=== PATIENT | male | born 1950 | race Caucasian/White ===

== ENCOUNTER 2022-02-19 21:33 | Inpatient (IN) | payer MEDICARE, OTHER, SELFPAY ==
[2022-02-19] VITALS (17 sets, daily range): BP systolic 99–133; BP diastolic 65–102; PULSE 73–85; RESP 15–33; TEMP 36.6; O2SAT 93–96
--- NOTE | 2022-02-19 21:30 | DI.CT_ITS ---
Exam(s) CT HEAD CERVICAL SPINE WO EXAM: CT HEAD CERVICAL SPINE WO CLINICAL HISTORY: fall, intoxicated, pain. TECHNIQUE: Imaging Protocol: Axial computed tomography images with coronal and sagittal reformatted images were created and reviewed COMPARISON: No exams were available for comparison FINDINGS: BRAIN: There are no skull fractures nor fluid in the visualized paranasal sinuses. There is no evidence of intracranial hemorrhage, mass effect, or shift of midline structures. There are no extra-axial fluid collections. The ventricles are not enlarged or shifted and there is no blo od within the ventricular system nor within the basal cisterns. Mild periventricular hypodensity consistent with chronic small vessel disease. CERVICAL SPINE: There is no evidence of fracture nor listhesis. No significant prevertebral soft tissue swelling. Mild disc space narrowing at multiple levels noted. Also some facet arthropathy. There is no significant facet joint malalignment. No significant osseous lesions evident. IMPRESSION: No acute intracranial findings on this noninfused CT scan of the brain. No evidence of cervical spine fracture, malalignment, nor acute compromise of the cervical spinal can al. RADIATION DOSE DELIVERED: 1,196.67mGy.cm Total DLP DATA REPOSITORY: All CT scans at this facility are submitted to the National Radiology Data Registry (NRDR) Dose Index Registry (DIR) with the [employer] (ACR). RADIATION OPTIMIZATION: All CT scans at this facility use at least one of these dose optimization te chniques: automated exposure control; mA and/or kV adjustment per patient size (includes targeted exa ms where dose is matched to clinical indication); or iterative reconstruction.
--- NOTE | 2022-02-19 21:30 | DI.CT_ITS ---
Exam(s) CT THORACIC LUMBAR SPINE WO EXAM: CT THORACIC LUMBAR SPINE WO CLINICAL HISTORY: fall, intoxicated, pain. TECHNIQUE: Imaging Protocol: Axial computed tomography images with coronal and sagittal reformatted images were created and reviewed. CONTRAST MATERIAL: None Oral: yes / no COMPARISON: CT CT CHEST/ABD/PEL WO from 02/19/2022 FINDINGS: THORACIC SPINAL COLUMN: There is no evidence of compression fracture or listhesis. No acute compromi se of the spinal canal. LUMBOSACRAL SPINAL COLUMN: Mild compression fracture of superior endplate of L 5. There is also a fr acture through the anterosuperior aspect of the L4 vertebral body. There is also a nondisplaced frac ture of S1. All the disc spaces exhibit normal height. No evidence of acute compromise of the centr al canal. No foraminal stenosis. No facet malalignment. IMPRESSION: 1. No fractures in thoracic spinal column 2. Acute fractures of L4 and L5 vertebral bodies, without significant retropulsion. There is also no ndisplaced fracture of S1. There is no evidence compromise of the lumbosacral spinal canal. Also no significant foraminal stenosis. No facet malalignment. RADIATION DOSE DELIVERED: Total DLP DATA REPOSITORY: All CT scans at this facility are submitted to the National Radiology Data Registry (NRDR) Dose Index Registry (DIR) with the [employer] (A[employer]). RADIATION OPTIMIZATION: All CT scans at this facility use at least one of these dose optimization te chniques: automated exposure control; mA and/or kV adjustment per patient size (includes targeted exa ms where dose is matched to clinical indication); or iterative reconstruction.
--- NOTE | 2022-02-19 21:30 | RT.EKG_ITS ---
APPROVED REPORT Exam: Resting ECG Reason for Exam: ?syncope Patient Location: E HR:75 bpm ECG Measurements Heart Rate 75 AXIS WY 184 P 67 QRSd 97 QRS 75 QT 394 T 66 QTc 441 Conclusion Sinus rhythm...normal P axis, V-rate 60- 99 Probable anterolateral infarct, old...Q>35mS, abnrm ST-T, V2-V6,I,aVL
--- NOTE | 2022-02-19 21:30 | DI.CT_ITS ---
Exam(s) CT CHEST/ABD/PEL WO EXAM: CT CHEST/ABD/PEL WO CLINICAL HISTORY: fall, intoxicated, pain. TECHNIQUE: Imaging Protocol: Axial computed tomography images with coronal and sagittal reformatted images were created and reviewed CONTRAST MATERIAL: Intravenous: none Oral: None COMPARISON: CR CHEST 2 VIEWS PA,LAT from 04/10/2011 FINDINGS: CHEST: LUNGS: Right upper lobe scarring noted, as seen on prior chest x-rays dating back to at least 2010. Also some mild infiltrate in the left upper lobe and superior segment of the left lower lobe. Few sm all calcified granulomas are noted both lungs. There no pleural effusions. No pneumothorax. No obs tructing findings in the trachea and mainstem bronchi. MEDIASTINUM: No evidence of mediastinal hematoma. No hilar nor mediastinal adenopathy evident. No a xillary adenopathy. Visualized thyroid unremarkable. CARDIAC: Heart size is normal. There is no pericardial effusion.Ascending thoracic aorta is slightly prominent measuring 3.8 cm. Diameter of the aortic arch is 3.1 cm. Diameter of the descending thor acic aorta is also slightly prominent. OSSEOUS: There is fracture of the left clavicle midshaft level. There also multiple left-sided rib f ractures involving the 2nd, 3rd, 4th, 5th, 6, 7th, and 8th ribs with the 8th rib fracture being mildl y displaced. No pneumothorax. No right-sided rib fractures. No sternal fracture evident. No scapu lar fracture evident.No fractures of the thoracic vertebral bodies.. ABDOMEN: There is no ascites. No evidence of mesenteric nor bowel wall hematoma. LIVER: No obvious laceration evident on this noninfused study. No discrete focal hepatic lesions katia dent. GALLBLADDER/BILIARY: Cholelithiasis or hyperdense polyp on the posterior wall. No evidence of acute cholecystitis. CBD is not dilated. PANCREAS: No evidence of obvious pancreatic mass nor dilatation of the pancreatic duct. SPLEEN: Spleen size is normal. Splenic granulomas are noted. No splenic laceration nor perisplenic fluid. ADRENALS: There are no significant adrenal masses. KIDNEYS: There are cysts in both kidneys. The largest is in the anterior cortex of the left kidney a nd measures 3 x 3 cm. No solid renal masses nor calculi nor hydronephrosis. No renal lacerations.. ABDOMINAL AORTA: Heavily calcified and fusiform infrarenal abdominal aortic aneurysm with maximum ext ernal diameter of 2.6 cm. The of the common iliac arteries are heavily calcified but not enlarged. LYMPH NODES: There is no retroperitoneal nor para-aortic adenopathy. ABDOMINAL WALL/GI: No significant anterior abdominal hernia. There is a fat only containing left ing uinal hernia. No evidence of bowel obstruction. PELVIS: LYMPH NODES: There is no intrapelvic nor inguinal adenopathy. GI: No evidence of appendicitis.No evidence of sigmoid diverticulitis. URINARY BLADDER: Appears intact. No extravasation. No obvious calculi nor masses. REPRODUCTIVE: Prostate size normal. Seminal vesicles unremarkable. OSSEOUS: Fracture of the anterosuperior aspect of L4 vertebral body. Mild height loss of superior en dplate of L5. Possible subtle nondisplaced fracture of S1. No significant compromise of the spinal canal at these levels. IMPRESSION: 1. There are acute fractures of the left 2nd-8th ribs, with multiple rib fractures in 2 places, dilcia rning for development of flail chest. There is some displacement of the 8th rib fracture. There is some mild infiltrate in the left upper lobe and superior segment of the left lower lobe, possibly cherelle ment of contusion. Also mild infiltrate in the lingula. There is no pneumothorax. No significant p leural effusions. No mediastinal hematoma 2. No significant acute soft tissue trauma sequelae in the abdomen and pelvis, realized limitations o f a non infused a study. However, there are fractures of L4, L5, S1 vertebral bodies, nondisplaced. No acute compromise of the spinal canal. 3. Incidentally noted is a 2.6 cm fusiform infrarenal abdominal aortic aneurysm and benign cysts in b oth kidneys measuring up to 3 cm size. RADIATION DOSE DELIVERED: 1171.4 mGy.cm Total DLP DATA REPOSITORY: All CT scans at this facility are submitted to the National Radiology Data Registry (NRDR) Dose Index Registry (DIR) with the [employer] (ACR). RADIATION OPTIMIZATION: All CT scans at this facility use at least one of these dose optimization te chniques: automated exposure control; mA and/or kV adjustment per patient size (includes targeted exa ms where dose is matched to clinical indication); or iterative reconstruction.
--- NOTE | 2022-02-19 21:45 | DI.RAD_ITS ---
Exam(s) XR ELBOW LT COMPLETE EXAM: XR ELBOW LT COMPLETE CLINICAL HISTORY: fall, intoxicated, pain. TECHNIQUE: 2D digital imaging was performed. COMPARISON: No exams were available for comparison FINDINGS: 3 views No evidence of obvious fracture or joint effusion. No swelling of the olecranon bursa. Subtle irregularity on the medial aspect of the radial head is noted, possibly degenerative but if th ere is high clinical suspicion for fracture then an additional radial head Coyles view can be perform ed. IMPRESSION: DATA REPOSITORY: RADIATION DOSE DELIVERED:
--- NOTE | 2022-02-19 21:51 | ED.GENADUL_ITS ---
Discharge Plan Disposition Patient Disposition: [facility] INPATIENT Condition: Stable Discharge Details Clinical Impression: Fall, Blunt trauma of multiple sites of trunk, Blunt head trauma, Hyponatremia, Multiple rib fractures, Lumbar vertebral fracture Primary Care Provider: Tyrese Sprague ED Provider: Andrea Epps Home Meds and New Rx's Prescriptions: No Action hydrochlorothiazide 25 MG tablet 25 mg PO DAILY Qty: 30 0RF lisinopril 10 MG tablet 10 mg PO DAILY Qty: 30 0RF amlodipine 2.5 mg Tablet 0RF aspirin 81 mg Tablet,Chewable 81 mg PO DAILY 0RF Medical Decision Making 71 yo male with hx of HTN [facility] who comes in with [facility] after he was found on the ground by his roommate harriett and was on the ground for an unknown amount of time. EMS was called and when they arrived patient was awake and said he must have been sleep walking and admitted to drinking one beer, though the roommate disagreed and said he had been drinking most of the day. The ems crew noted a forehead laceration and a skin tear on the left wrist and elbow and brought him here. He arrives stable, caox4 answering questions with mild slurring of words. He has mild headache, left sided lateral chest pain over the 7-8 ribs in the anterior axillary line without crepitus. Has mild llq tenderness, no guarding or rebound. HE has no tenderness in the left wrist with a 3cm skin tear on posterior wrist, normal rom and sensation and pulses. He has full rom of the elbow with tendernes over the olecranon and a 2cm skin tear on the lateral elbow. He is moving all extremities equally with normal sensation, no deformities of the back noted. Given he is intoxicated with multiple signs of trauma can't exclude traumatic injuries based on exam, will obtain ct head/c spine, chest/abd/pelvis as well as t and l spine recons, given he was in his house and not near anything he could have climbed on doubt aortic injury and will defer contrast in the study. Will also obtain etoh level, cbc, cmp and cpk. Though it is likely this was alcohol induced episoe of passing out will obtain ecg and troponin to evaluate for cardiac etiology. He has no tearing back pain to suggest dissection and no hypoxia or evidence of dvt so doubt pe. THe laceration on the mid forehead is 2cm and superficial and was closed after irrigation with dermabond. Pt's imaging pending, vitals stable, labs remarkable for Na of 119 which could be from beer protonomia vs being on hydrochlorothiazide. Has had 1L of saline, will hold on additional fluid to avoid overcorrection of the sodium. Dr Epps's Documentation The case was signed out to me by my colleague Dr. Homer Pozo. Please refer to his HPI, Assessment and plan. At time of signout there was a plan for admission for hyponatremia, but we are pending radiographic work-up. CT scan results have returned, the patient demonstrates multiple rib fractures on the left of the second through eighth ribs, with multiple rib fractures in 2 places, which is concerning for the development of potential flail chest. There is some pulmonary contusion, but no evidence of pneumothorax. He also does have a mildly displaced fracture of the midshaft of the left clavicle. Elbow x-rays unremarkable. CT scan of the spine demonstrates some small endplate fractures, but no other significant abnormality. Patient is able to move legs well, as well as upper extremities. I did go and reassess the patient myself. He demonstrates no evidence of subcutaneous emphysema on exam. Patient does not want any pain medications at this time. He states that he does have pain but it is only if he takes a deep breath right now. He states that he feels comfortable currently. I did contact surgery, discussed the case with Dr. Singleton. She states that she would feel comfortable with the patient being here with surgery on consult for the trauma components. As the patient remained stable at this time, I do feel that that would be reasonable as he shows no evidence of acute intercranial abnormality on imaging, pneumothorax, hemothorax, or other current life-threatening traumatic component. We will contact the hospitalist for medical admission with surgical consultation. 12:38 AM Discussed the case with Dr. Phillips, he agrees with the assessment and plan. I have extensively reviewed the treatment plan with the patient. I have addressed all patient concerns at this time. I have also discussed the plan with the admitting physician and they agree with the current assessment and plan and have agreed to assume responsibility for the patient. All parties demonstrate verbal understanding and agreement with our assessment and plan at this time. The documentation in this chart was dictated using [employer] dictation software. Please excuse any dictation errors. FINDINGS: Bones/joints: The bones are demineralized, which limits sensitivity for detection of acute nondisplaced fractures. No fractures are identified with certainty. Alignment is anatomic. No joint effusion is seen. Soft tissues: Periarticular soft tissues are unremarkable. IMPRESSION: No fracture or malalignment in the left elbow. Thank you for allowing us to participate in the care of your patient. Dictated and Authenticated by: Temi Arthur MD 02/20/2022 12:07 AM Eastern Time ([place] & [place]) IMPRESSION: 1. Acute fractures of the left 2nd-8th ribs as described above, with multiple ribs fractured in 2 places. This is concerning for the development of flail chest. 2. Trace left pleural effusion with suspected small pulmonary contusions in the left upper and left lower lobes. 3. No pneumothorax. 4. Mildly displaced fracture of the midshaft of the left clavicle. 5. Additional incidental/nontraumatic findings are discussed in the body of the report. IMPRESSION: 1. No acute posttraumatic abnormality in the abdomen or pelvis. No definitive ev idence of visceral injury. No acute fractures. Study limited by noncontrast technique and degraded by artifact. 2. Incidental/nontraumatic findings are discussed in the body of the report. Thank you for allowing us to participate in the care of your patient. Dictated and Authenticated by: Temi Arthur MD 02/19/2022 11:48 PM Eastern Time ([place] & [place]) FINDINGS: Vertebrae: No acute fracture in the thoracic spine. No spondylolisthesis. Thoracic kyphosis is maintained. Bridging anterior endplate osteophytes throughout the thoracic spine are compatible with diffuse idiopathic skeletal hyperostosis. Discs/Spinal canal/Neural foramina: No moderate to large disc herniation. No moderate or severe central canal stenosis, noting that characterization of intraspinal soft tissue structures is limited by non-myelographic CT technique. No high-grade neural foraminal stenosis. Soft tissues: No paraspinal hematoma. Other findings: Please refer to the concurrently performed chest CT, reported separately, for description of left rib and clavicular fractures and other intrathoracic findings. IMPRESSION: No acute fracture or traumatic subluxation in the thoracic spine. FINDINGS: Vertebrae: There is an acute fracture of the right aspect of the L4 superior endplate which extends in an oblique fashion through its large anterior/superior endplate osteophyte (see sagittal images 46- 56). There is a subtle suspected nondisplaced fracture of the L4 inferior endplate. There is no significant loss of vertebral body height or osseous retropulsion at this level. There is a mild acute appearing superior endplate compression deformity at L5 and a subtle suspected nondisplaced inferior endplate compression deformity at L5, with mild loss of vertebral body height though no significant osseous retropulsion. There is a questionable subtle superior endplate compression deformity at S1. Up there lying osseous demineralization and advanced degenerative changes limit sensitivity for detection of acute nondisplaced fractures. There is no spondylolisthesis. Lumbar lordosis is maintained. Discs/Spinal canal/Neural foramina: No moderate or high-grade central canal stenosis. No moderate or large disc herniation, noting that characterization of intraspinal structures is limited by non myelographic CT technique. No high-grade neural foraminal stenosis. Soft tissues: No acute posttraumatic abnormality. IMPRESSION: 1. Acute compression fractures at L4 and L5 as described above, without significant osseous retropulsion. 2. Questionable nondisplaced superior endplate compression fracture at S1. Underlying osseous demineralization limits evaluation. This could be further assessed with MRI. Thank you for allowing us to participate in the care of your patient. Dictated and Authenticated by: Temi Arthur MD 02/20/2022 12:00 AM Eastern Time ([place] & [place] FINDINGS: Brain: There are mild periventricular and subcortical lucencies consistent with chronic microvascular ischemic changes. The still-white differentiation is maintained. No hemorrhage. No edema. Cerebral ventricles: No ventriculomegaly. Paranasal sinuses: Visualized sinuses are unremarkable. No fluid levels. Mastoid air cells: Visualized mastoid air cells are well aerated. Bones/joints: Unremarkable. No acute fracture. Soft tissues: Unremarkable. IMPRESSION: 1. No acute intracranial abnormality. 2. Chronic microvascular ischemic changes. FINDINGS: Bones/joints: No acute fracture. Normal alignment. Discs/Spinal canal/Neural foramina: Multilevel degenerative disc disease. There is multilevel uncovertebral and facet hypertrophy with neural foramina narrowing. Lungs: Lung apices are normal. Soft tissues: Unremarkable. IMPRESSION: No acute abnormality. Thank you for allowing us to participate in the care of your patient. Dictated and Authenticated by: Neptali Swan DO 02/19/2022 11:12 PM Eastern Time ([place] & [place]) Differential Diagnosis Differential Diagnosis: tbi, rib fracture, intoxication Lab Data Lab results reviewed: Yes I reviewed the patient's lab results. ECG Data Attestation: I personally reviewed and interpreted this ECG (s) as follows: Prior ECG tracings: not available for review Interpretation: Sinus rhythm, rate of 75, pr 184, no acute st t wave ischemic findings HPI General Mode of arrival: EMS . Date/Time Provider Initiated Documentation: 02/19/22 21:33 . Limitations to Documentation: no limitations . Information obtained by: patient and EMS . History of Present Illness 71 year old M presents to the emergency department with the chief complaint of fell, found on ground by roommate, Patient started experiencing this unknown and it has been constant. improves with No relieving factors improve symptom(s), No exacerbating factors reported . Patient did receive the following treatments prior to arrival, none Related Data Home Medications Medication Instructions Recorded Confirmed hydrochlorothiazide 25 mg tablet 25 mg PO DAILY #30 tablet 06/28/14 lisinopril 10 mg tablet 10 mg PO DAILY #30 tablet 06/28/14 02/19/22 amlodipine 2.5 mg tablet mg 02/19/22 aspirin 81 mg chewable tablet 81 mg PO DAILY 02/19/22 02/19/22 Previous Rx's Medication Instructions Recorded hydrochlorothiazide 25 mg tablet 25 mg PO DAILY #30 tablet 06/28/14 lisinopril 10 mg tablet 10 mg PO DAILY #30 tablet 06/28/14 Allergies Allergy/AdvReac Type Severity Reaction Status Date / Time No Known Allergies Allergy Unverified 02/19/22 21:51 General Stated Complaint: Trauma CONCETTA: 3 Review of Systems All systems reviewed & are unremarkable except as noted in HPI and below Constitutional Constitutional: Denies chills, Denies fever(s) and Denies weakness Cardiovascular Cardiovascular: Denies dyspnea Respiratory Respiratory: Denies cough and Denies dyspnea Gastrointestinal Gastrointestinal: Denies abdominal pain, Denies nausea and Denies vomiting Genitourinary Genitourinary: Denies dysuria Musculoskeletal Musculoskeletal: Denies joint swelling Integumentary/Breasts Skin/Breast: Denies rash Neurologic Neurologic: Denies weakness PFSH All Active Problems (Updated 02/20/22 @ 00:40 by Andrea Epps DO) Fall (Acute) Blunt trauma of multiple sites of trunk (Acute) Blunt head trauma (Acute) Hyponatremia (Acute) Multiple rib fractures (Acute) Lumbar vertebral fracture (Acute) Social History Smoking/Tobacco Use Status: Current every day Smoking risk assessment performed?: Yes Alcohol Intake: current Alcohol Intake frequency: 0-2 drinks per day Alcohol type: beer Drug use: Never Details: Patient reports drinking a 25oz beer tonight. Exam Const General: no acute distress Orientation: alert HENMT Head: no palpable skull fracture Ears: external ears normal General nose exam: external nose normal Mouth: moist mucous membranes Eyes General: appearance normal, both eyes and all related structures Neck Neck: normal visual inspection Resp Effort & Inspection: normal respiratory effort and able to speak in complete sentences Cardio Rate: regular rate GI Palpation: soft, not firm, no guarding and tender Skin General skin exam: no rashes or lesions noted Neuro General: patient alert and patient oriented x3 Extrem General: capillary refill normal Psych Mental Status: mental status grossly normal Course Vital Signs Vital signs: Vital Signs Temperature 36.6 C 02/19/22 21:32 Pulse 73 02/19/22 21:32 Respiratory Rate 22 02/19/22 21:32 Blood Pressure 99/65 L 02/19/22 21:32 Pulse Oximetry 95 02/19/22 21:32 Temperature 36.6 C 02/19/22 21:32 Temperature Source Skin 02/19/22 21:32 Pulse 73 02/19/22 21:32 Respiratory Rate 22 02/19/22 21:32 Respiratory Effort 02/19/22 21:39 Respiratory Depth Normal 02/19/22 21:39 Respiratory Pattern Normal 02/19/22 21:39 Blood Pressure 99/65 L 02/19/22 21:32 Blood Pressure Position Supine 02/19/22 21:32 Pulse Oximetry 95 02/19/22 21:32 Oxygen Delivery Method Room Air 02/19/22 21:32 Oxygen Flow Rate 0 02/19/22 21:32 Pain Level 5 02/19/22 21:32 Sign Out Sign Out Data: Sign Out Comment: found on the ground at his house by his roommate/landlord, unknown how long down and admitted to 1 beer though landlord said he drank more throughout the day. AWake on ems arrival and on arrival caox4 though slurring words. Lac on forehead closed with dermabond, no focal neuro findings. [place] scan pending and left elbow xray. Na of 119 likely from beer protonomia vs being on HCTZ. [facility] if unable to take him would likely need to be admitted here. 1L saline given on arrival prior to labs being done. Last updated by Homer Pozo MD at 02/19/22 22:24 PAWSS Have you Been Recently Intoxicated or Drunk Within the Last 30 days?: Yes Have you Ever Experienced Previous Episodes of Alcohol Withdrawal?: No Have you ever Experienced Withdrawal Seizures?: No Have you ever Experienced Delirium Tremens(DT)s?: No Have you ever undergone Alcohol Rehabilitation Treatment (i.e, inpt ot outpatient treatment programs)?: No Have you ever Experienced Blackouts?: No Have you ever Combined Alcohol with other Downers within the last 90 days?: No Have you ever Combined Alcohol with any other Substance of Abuse during the last 90 days?: No Positive Blood Alcohol level on Presentation? [PCS.BAL]: No Evidence of Increased Autonomic Activity (i.e. HR>120, tremor, sweating, agitati on, nausea)?: No Result: 1
[2022-02-19 21:53] LABS: Abs Immature Grans 0.13 10^3/uL (0.0-0.06); Absolute Basophil Count 0.04 10^3/uL (0.0-0.2); Absolute Eosinophil Count 0.22 10^3/uL (0.0-0.7); Absolute Monocyte Count 0.72 10^3/uL (0.1-0.8); Absolute Neutrophil Count 5.93 10^3/uL (1.2-6.7); Basophils % 0.4; Eosinophils % 2.3; HCT 32.4 % (40.0-50.0); HGB 11.7 g/dL (13.5-17.5); Immature Grans % 1.4; Lymphocytes % 26.2; MCH 33.9 pg (27.0-33.0); MCHC 36.1 % (32.0-36.0); MCV 93.9 fL (80-95); MPV 8.6 fL (8.0-11.0); Monocytes % 7.5; Neutrophils % 62.2; Platelet Count 183 10^3/uL (130-400); RBC 3.45 10^6/uL (4.36-5.78); RDW 12.1 % (11.8-14.1); RDW-SD 41.7 fL; WBC 9.54 10^3/uL (4.4-10.8)
[2022-02-19] MEDS: Normal Saline 1,000 ML 1000 ML IV (22:05)
[2022-02-19 22:13] LABS: ALT 29 U/L (16-63); AST 31 U/L (15-37); Alkaline Phosphatase 120 U/L (46-116); Anion Gap 9.1 mmol/L (3-11); BUN 17 mg/dL (7-18); Bilirubin, Total 0.3 mg/dL (0.2-1.0); CO2 21.9 mmol/L (21.0-32.0); CREATININE 0.9 mg/dL (0.70-1.30); Calcium 7.8 mg/dL (8.5-10.1); Chloride 88 mmol/L (98-107); ETHANOL BLOOD 155.8 mg/dL (<10); Glucose 89 mg/dL (74-106); Total Protein 6.7 g/dL (6.4-8.2); Troponin I < 50 ng/L (<or=60)
[2022-02-19 22:14] LABS: Sodium 119 mmol/L (136-145)
[2022-02-19 22:17] LABS: PTT Activated 24.1 sec (21.0-27.5); Prothrombin Time 9.6 sec (9.3-11.0)
[2022-02-19 22:21] LABS: TSH (W/Ref FT4) 3.73 uIU/mL (0.36-3.74)
[2022-02-19 22:22] LABS: Creatine Kinase 195 U/L (39-308)
[2022-02-19 22:56] LABS: Source Nasal/Nares
--- NOTE | 2022-02-19 23:14 | DI.VRAD_ITS ---
PROCEDURE INFORMATION: Exam: CT Head Without Contrast Exam date and time: 02/19/2022 10:10 PM Age: 71 years old Clinical indication: Other: Fall, intoxicated, pain, TECHNIQUE: Imaging protocol: Computed tomography of the head without contrast. Radiation optimization: All CT scans at this facility use at least one of these dose optimization techniques: automated exposure control; mA and/or kV adjustment per patient size (includes targeted exams where dose is matched to clinical indication); or iterative reconstruction. COMPARISON: No relevant prior studies available. FINDINGS: Brain: There are mild periventricular and subcortical lucencies consistent with chronic microvascular ischemic changes. The still-white differentiation is maintained. No hemorrhage. No edema. Cerebral ventricles: No ventriculomegaly. Paranasal sinuses: Visualized sinuses are unremarkable. No fluid levels. Mastoid air cells: Visualized mastoid air cells are well aerated. Bones/joints: Unremarkable. No acute fracture. Soft tissues: Unremarkable. IMPRESSION: 1. No acute intracranial abnormality. 2. Chronic microvascular ischemic changes. PROCEDURE INFORMATION: Exam: CT Cervical Spine Without Contrast Exam date and time: 02/19/2022 10:10 PM Age: 71 years old Clinical indication: Other: Fall, intoxicated, pain, TECHNIQUE: Imaging protocol: Computed tomography images of the cervical spine without contrast. Radiation optimization: All CT scans at this facility use at least one of these dose optimization techniques: automated exposure control; mA and/or kV adjustment per patient size (includes targeted exams where dose is matched to clinical indication); or iterative reconstruction. COMPARISON: No relevant prior studies available. FINDINGS: Bones/joints: No acute fracture. Normal alignment. Discs/Spinal canal/Neural foramina: Multilevel degenerative disc disease. There is multilevel uncovertebral and facet hypertrophy with neural foramina narrowing. Lungs: Lung apices are normal. Soft tissues: Unremarkable. IMPRESSION: No acute abnormality. Dictated and Authenticated by: Neptali Swan MD. Ordering:PRABHJOT Coronel MD
[2022-02-19 23:31] LABS: Bilirubin Negative (Negative); Blood Moderate (Negative); Clarity Clear (Clear); Glucose Negative (Negative); Ketones Negative (Negative); Leukocyte Esterase Negative (Negative); Nitrite Negative (Negative); Specific Gravity 1.025 (1.005-1.025); Urobilinogen 0.2 EU/dL (Up TO 0.2); pH 5.5 (5-8)
[2022-02-19 23:33] LABS: COVID-19 PCR Negative (Negative)
[2022-02-19 23:41] LABS: Bacteria Few HPF (Negative); C & S Indicated? No; Casts 3-5 Hyaline LPF (Negative); Crystals Few Amorphous HPF (Negative); Epithelial Cells Negative HPF (Negative); Mucus Trace (Negative); WBC 0-2 HPF (0-5)
[2022-02-19 23:42] LABS: *AMPHETAMINES SCREEN URINE Negative (Negative); *BARBITURATES SCREEN URINE Negative (Negative); *BENZODIAZEPINES SCREEN URINE Negative (Negative); Cannabinoids THC Negative (Negative); Cocaine Screen,Urine Negative (Negative); METHADONE URINE SCREEN Negative (Negative); OPIATES URINE SCREEN Negative (Negative)
[2022-02-19 23:43] LABS: Tricyclic Antidepressants Negative (Negative)
--- NOTE | 2022-02-19 23:49 | DI.VRAD_ITS ---
Addendum created by Temi Arthur MD on 02/20/2022 12:02:31 AM EDT: Please refer to the concurrently performed CT of the lumbar spine, reported separately, for discussion of lumbar vertebral fractures which are seen to better advantage on those images. Initial report created on 02/19/2022 11:48:23 PM EDT: PROCEDURE INFORMATION: Exam: CT Chest Without Contrast; Diagnostic Exam date and time: 02/19/2022 10:26 PM Age: 71 years old Clinical indication: Other: Fall, intoxicated, pain TECHNIQUE: Imaging protocol: Diagnostic computed tomography of the chest without contrast. Radiation optimization: All CT scans at this facility use at least one of these dose optimization techniques: automated exposure control; mA and/or kV adjustment per patient size (includes targeted exams where dose is matched to clinical indication); or iterative reconstruction. COMPARISON: No relevant prior studies for comparison. FINDINGS: Limitations: Image quality is degraded by artifact from the patient's arms, which were not elevated during imaging. Respiratory motion artifact also degrades image quality. Lack of intravenous contrast limits evaluation of the solid viscera and vasculature. Lungs: There is moderately advanced centrilobular emphysema with biapical pleuroparenchymal scarring, with associated mild traction bronchiectasis in the right upper lobe. There are small dependent patchy alveolar opacities posteriorly in the left upper lobe and left lower lobe which are nonspecific, though in the setting of left-sided rib fractures raise suspicion for pulmonary contusions. Atelectasis could also contribute to this appearance. There is mild linear subsegmental atelectasis versus scarring in the lingula. There are numerous tiny calcified granulomas throughout both lungs. Pleural spaces: Trace left pleural effusion. No pneumothorax. Heart: Heart size is normal. Aortic and mitral annular calcifications and mild coronary artery calcifications are noted. No pericardial effusion. Mediastinal space: No mediastinal hematoma. Lymph nodes: No pathologically enlarged mediastinal or axillary lymph nodes. While no bulky hilar lymphadenopathy is suspected, characterization of hilar structures is limited without intravenous contrast. Pulmonary arteries: Normal caliber. Aorta: Normal caliber, with severe atherosclerotic mural calcification. Bones/joints: There is a mildly displaced oblique fracture of the midshaft of the left clavicle. There are multiple acute left rib fractures, with multiple ribs fractured in 2 places, which is concerning for the development of flail chest. In the left 2nd rib there is a nondisplaced fracture anteriorly and a comminuted nondisplaced fracture posteriorly. In the 3rd rib there is a mildly comminuted nondisplaced fracture anterolaterally and a mildly displaced fracture posteriorly. In the 4th rib there are nondisplaced fractures laterally and posteriorly. In the 5th rib there are nondisplaced fractures laterally and posteriorly. In the 6th and 7th ribs there are comminuted fractures posteriorly and questionable nondisplaced fractures laterally, not well assessed due to motion artifact. In the 8th rib, there is a nondisplaced fracture laterally and a comminuted fracture posteriorly which is displaced by nearly a full shaft's width. Other subtle nondisplaced rib fractures are difficult to exclude in the setting of motion artifact. Thoracic vertebral bodies maintain normal height and alignment. Soft tissues: Unremarkable. IMPRESSION: 1. Acute fractures of the left 2nd-8th ribs as described above, with multiple ribs fractured in 2 places. This is concerning for the development of flail chest. 2. Trace left pleural effusion with suspected small pulmonary contusions in the left upper and left lower lobes. 3. No pneumothorax. 4. Mildly displaced fracture of the midshaft of the left clavicle. 5. Additional incidental/nontraumatic findings are discussed in the body of the report. PROCEDURE INFORMATION: Exam: CT Abdomen And Pelvis Without Contrast Exam date and time: 02/19/2022 10:26 PM Age: 71 years old Clinical indication: Other: Fall, intoxicated, pain TECHNIQUE: Imaging protocol: Computed tomography of the abdomen and pelvis without contrast. Radiation optimization: All CT scans at this facility use at least one of these dose optimization techniques: automated exposure control; mA and/or kV adjustment per patient size (includes targeted exams where dose is matched to clinical indication); or iterative reconstruction. COMPARISON: No relevant prior studies for comparison. FINDINGS: Limitations: Lack of intravenous contrast limits evaluation of the solid viscera and vasculature. Motion artifact and artifact from the patient's arms also degrades image quality. Lungs: See above. Liver: No acute abnormality, within the limits of artifact and noncontrast technique. Gallbladder and bile ducts: No intrahepatic or extrahepatic biliary ductal dilatation. Cholelithiasis is noted. Pancreas: Unremarkable. Spleen: The spleen is normal in size and contains multiple small calcified granulomas. Otherwise unremarkable, within the limits of artifact and noncontrast technique. Adrenal glands: Unremarkable. Kidneys and ureters: No hydronephrosis or hydroureter. Simple-appearing cortical cysts in both kidneys. Stomach and bowel: Unremarkable. Small and large bowel are normal in caliber. Appendix: No findings to suggest appendicitis. Intraperitoneal space: Unremarkable. No ascites, fluid collection, or pneumoperitoneum. Retroperitoneal space: Unremarkable. No retroperitoneal collection or mass. Arteries: Severe diffuse atherosclerotic vascular calcifications with slight ectasia of the infrarenal abdominal aorta. Lymph nodes: No pathologically enlarged lymph nodes. Urinary bladder: Unremarkable. Reproductive: Mildly enlarged prostate gland. Bones/joints: No acute fractures. Mild chronic-appearing loss of height of the L5 vertebral body. Degenerative changes. Soft tissues: Small fat-containing left inguinal and umbilical hernias. Other findings: None. IMPRESSION: 1. No acute posttraumatic abnormality in the abdomen or pelvis. No definitive evidence of visceral injury. No acute fractures. Study limited by noncontrast technique and degraded by artifact. 2. Incidental/nontraumatic findings are discussed in the body of the report. Dictated and Authenticated by: Temi Arthur MD. Ordering:PRABHJOT Coronel MD
[2022-02-20] VITALS (132 sets, daily range): BP systolic 90–173; BP diastolic 60–107; PULSE 69–97; RESP 5–31; TEMP 36.6–38.1; O2SAT 84–97
--- NOTE | 2022-02-20 00:01 | DI.VRAD_ITS ---
PROCEDURE INFORMATION: Exam: CT Thoracic Spine Without Contrast Exam date and time: 02/19/2022 10:26 PM Age: 71 years old Clinical indication: Other: Fall, intoxicated, pain TECHNIQUE: Imaging protocol: Computed tomography images of the thoracic spine without contrast. Radiation optimization: All CT scans at this facility use at least one of these dose optimization techniques: automated exposure control; mA and/or kV adjustment per patient size (includes targeted exams where dose is matched to clinical indication); or iterative reconstruction. COMPARISON: 1. CT HEAD CERVICAL SPINE WO 02/19/2022 10:[address] CHEST/ABD/PEL WO 02/19/2022 10:26 PM FINDINGS: Vertebrae: No acute fracture in the thoracic spine. No spondylolisthesis. Thoracic kyphosis is maintained. Bridging anterior endplate osteophytes throughout the thoracic spine are compatible with diffuse idiopathic skeletal hyperostosis. Discs/Spinal canal/Neural foramina: No moderate to large disc herniation. No moderate or severe central canal stenosis, noting that characterization of intraspinal soft tissue structures is limited by non-myelographic CT technique. No high-grade neural foraminal stenosis. Soft tissues: No paraspinal hematoma. Other findings: Please refer to the concurrently performed chest CT, reported separately, for description of left rib and clavicular fractures and other intrathoracic findings. IMPRESSION: No acute fracture or traumatic subluxation in the thoracic spine. PROCEDURE INFORMATION: Exam: CT Lumbar Spine Without Contrast Exam date and time: 02/19/2022 10:26 PM Age: 71 years old Clinical indication: Other: Fall, intoxicated, pain TECHNIQUE: Imaging protocol: Computed tomography images of the lumbar spine without contrast. Radiation optimization: All CT scans at this facility use at least one of these dose optimization techniques: automated exposure control; mA and/or kV adjustment per patient size (includes targeted exams where dose is matched to clinical indication); or iterative reconstruction. COMPARISON: 1. CT CHEST/ABD/PEL WO 02/19/2022 10:[address] HEAD CERVICAL SPINE WO 02/19/2022 10:10 PM FINDINGS: Vertebrae: There is an acute fracture of the right aspect of the L4 superior endplate which extends in an oblique fashion through its large anterior/superior endplate osteophyte (see sagittal images 46-56). There is a subtle suspected nondisplaced fracture of the L4 inferior endplate. There is no significant loss of vertebral body height or osseous retropulsion at this level. There is a mild acute appearing superior endplate compression deformity at L5 and a subtle suspected nondisplaced inferior endplate compression deformity at L5, with mild loss of vertebral body height though no significant osseous retropulsion. There is a questionable subtle superior endplate compression deformity at S1. Up there lying osseous demineralization and advanced degenerative changes limit sensitivity for detection of acute nondisplaced fractures. There is no spondylolisthesis. Lumbar lordosis is maintained. Discs/Spinal canal/Neural foramina: No moderate or high-grade central canal stenosis. No moderate or large disc herniation, noting that characterization of intraspinal structures is limited by non myelographic CT technique. No high-grade neural foraminal stenosis. Soft tissues: No acute posttraumatic abnormality. IMPRESSION: 1. Acute compression fractures at L4 and L5 as described above, without significant osseous retropulsion. 2. Questionable nondisplaced superior endplate compression fracture at S1. Underlying osseous demineralization limits evaluation. This could be further assessed with MRI. Dictated and Authenticated by: Temi Arthur MD. Ordering:PRABHJOT Coronel MD
--- NOTE | 2022-02-20 00:08 | DI.VRAD_ITS ---
PROCEDURE INFORMATION: Exam: XR Left Elbow Exam date and time: 02/19/2022 10:38 PM Age: 71 years old Clinical indication: Other: Fall, intoxicated pain TECHNIQUE: Imaging protocol: XR Left elbow. Views: 3 or more views. COMPARISON: No relevant prior studies available. FINDINGS: Bones/joints: The bones are demineralized, which limits sensitivity for detection of acute nondisplaced fractures. No fractures are identified with certainty. Alignment is anatomic. No joint effusion is seen. Soft tissues: Periarticular soft tissues are unremarkable. IMPRESSION: No fracture or malalignment in the left elbow. Dictated and Authenticated by: Temi Arthur MD. Ordering:PRABHJOT Coronel MD
--- NOTE | 2022-02-20 00:59 | W.PM.HP.N ---
Date of service: 02/20/22 Time of Service: 01:00 Assessment and Plan Assessment and plan (1) Fall: Status: Acute Assessment and plan: Found down, unclear if mechanical fall or syncopal event, with multitrauma, including ribs, clavicle and spine. No mechanical respiratory compromise evident (viz, flail chest). 1. Fall vs syncope: trend trop, telemetry 2. EtOH: CIWA, banana bag 3. Hyponatremia, diuretic vs EtOH: trend, NS, hold diuretic 4. Multiple fractures: monitor respiratory function clinically, rib blocks, prn analgesics (again, declines) 5. Anemia: check baseline NE labs (have requested), trend, initial w/u with retics and iron studies and stool guiacs 6. Microscopic hematuria, ? renal contusion: follow, further urological w/u if persists History of Present Illness History of Present Illness Chief Complaint: found down Narrative: 71 male with h/o HTN, [facility], last seen here [facility] -- found by roommate down, unknown period. Stated he had one beer though roommate states he was drinking all day. Signs of multitrauma evident and patient brought to ER. In ER findings of note for forehead laceration, and multiple areas of ecchymosis. Labs of note for Hct 32, Na 119, EtOH 155, U/A 10-20 RBC; and imaging of note for left clavicular fracture, fractures of left ribs 2-8, some in multiple locations, L4 and L5 endplate fractures, negative left elbow. CT chest suggests possible small pulmonary contusion but no other acute pathology, and CT abdomen no acute process. Surgery was consulted and will see patient in AM for rib blocks. EKG unremarkable and trop negative. I was asked to evaluate for admission. Patient reports left sided rib pain with deep inspiration (and declines pain meds). Denies SOB. States (again) that he drinks only one beer per day, and denies issues with withdrawal Review of Systems Constitutional Comments: per HPI PFSH All Active Problems Fall (Acute) Blunt trauma of multiple sites of trunk (Acute) Blunt head trauma (Acute) Hyponatremia (Acute) Multiple rib fractures (Acute) Lumbar vertebral fracture (Acute) Social History Smoking/Tobacco Use Status: Current every day Smoking risk assessment performed?: Yes Alcohol Intake: current Alcohol Intake frequency: 0-2 drinks per day Alcohol type: beer Drug use: Never Details: Patient reports drinking a 25oz beer tonight. Meds Allergies and Home Medications Allergies Allergy/AdvReac Type Severity Reaction Status Date / Time No Known Allergies Allergy Unverified 02/19/22 21:51 Home Medications Medication Instructions Recorded Confirmed Type hydrochlorothiazide 25 mg tablet 25 mg PO DAILY #30 tablet 06/28/14 Rx lisinopril 10 mg tablet 10 mg PO DAILY #30 tablet 06/28/14 02/19/22 Rx amlodipine 2.5 mg tablet mg 02/19/22 History aspirin 81 mg chewable tablet 81 mg PO DAILY 02/19/22 02/19/22 History Exam Narrative Exam Narrative: 124/62 (during exam, last recorded ), 73, 36.6, 18, 95% RA. HEENT 4 cm forehead lac with dermabond; neck supple; lungs limited inspiration coarse wheeze; heart RRR; chest tender over left lateral chest w/o crepitus, no paradoxical motion chest during inspiration, 5 cm ecchymosis left clavicle, mild tenderness; abdomen soft and NT; back w/o spinal tenderness; rectal deferred; extremities wrap over left wrist and left elbow, w/o pedal edema; neuro Ox3, moves all 4s Results Labs Result diagrams: 02/19/22 21:45 02/19/22 21:45 Labs: Laboratory Results - last 24 hr 02/19/22 02/19/22 02/19/22 21:45 21:45 21:45 WBC 9.54 RBC 3.45 L Hgb 11.7 L Hct 32.4 L MCV 93.9 MCH 33.9 H MCHC 36.1 H RDW 12.1 Plt Count 183 MPV 8.6 Immature Gran % 1.4 Neutrophils % 62.2 Lymphocytes % 26.2 Monocytes % 7.5 Eosinophils % 2.3 Basophils % 0.4 Nucleated RBC % 0.0 Absolute Neutrophils 5.93 Absolute Lymphocytes 2.50 Absolute Monocytes 0.72 Absolute Eosinophils 0.22 Absolute Basophils 0.04 PT INR APTT Sodium 119 L* Potassium 4.0 Chloride 88 L Carbon Dioxide 21.9 Anion Gap 9.1 BUN 17 Creatinine 0.9 Estimated GFR/1.73 m2 >= 60.00 Glucose 89 Calcium 7.8 L Magnesium 2.0 Total Bilirubin 0.3 AST 31 ALT 29 Alkaline Phosphatase 120 H Creatine Kinase Troponin I < 50 Total Protein 6.7 Albumin 3.0 L TSH 3.73 Urine Color Urine Clarity Urine pH Ur Specific [place] Urine Protein Urine Ketones Urine Blood Urine Nitrite Urine Bilirubin Urine Urobilinogen Ur Leukocyte Esterase Urine RBC Urine WBC Ur Epithelial Cells Urine Crystals Urine Bacteria Urine Casts Urine Mucus Ur Culture Indicated? Urine Glucose Urine Opiates Screen Urine Methadone Screen Ur Barbiturates Screen Ur Tricyclics Screen Ur Amphetamines Screen U Benzodiazepines Scrn Urine Cocaine Screen Ur THC Screen Ethyl Alcohol 155.8 H COVID-19 Source SARS-CoV-2 (PCR) 02/19/22 02/19/22 02/19/22 21:45 21:55 22:52 WBC RBC Hgb Hct MCV MCH MCHC RDW Plt Count MPV Immature Gran % Neutrophils % Lymphocytes % Monocytes % Eosinophils % Basophils % Nucleated RBC % Absolute Neutrophils Absolute Lymphocytes Absolute Monocytes Absolute Eosinophils Absolute Basophils PT 9.6 INR 1.0 APTT 24.1 Sodium Potassium Chloride Carbon Dioxide Anion Gap BUN Creatinine Estimated GFR/1.73 m2 Glucose Calcium Magnesium Total Bilirubin AST ALT Alkaline Phosphatase Creatine Kinase 195 Troponin I Total Protein Albumin TSH Urine Color Urine Clarity Urine pH Ur Specific [place] Urine Protein Urine Ketones Urine Blood Urine Nitrite Urine Bilirubin Urine Urobilinogen Ur Leukocyte Esterase Urine RBC Urine WBC Ur Epithelial Cells Urine Crystals Urine Bacteria Urine Casts Urine Mucus Ur Culture Indicated? Urine Glucose Urine Opiates Screen Urine Methadone Screen Ur Barbiturates Screen Ur Tricyclics Screen Ur Amphetamines Screen U Benzodiazepines Scrn Urine Cocaine Screen Ur THC Screen Ethyl Alcohol COVID-19 Source Nasal/Nares SARS-CoV-2 (PCR) Negative 02/19/22 02/19/22 23:20 23:20 WBC RBC Hgb Hct MCV MCH MCHC RDW Plt Count MPV Immature Gran % Neutrophils % Lymphocytes % Monocytes % Eosinophils % Basophils % Nucleated RBC % Absolute Neutrophils Absolute Lymphocytes Absolute Monocytes Absolute Eosinophils Absolute Basophils PT INR APTT Sodium Potassium Chloride Carbon Dioxide Anion Gap BUN Creatinine Estimated GFR/1.73 m2 Glucose Calcium Magnesium Total Bilirubin AST ALT Alkaline Phosphatase Creatine Kinase Troponin I Total Protein Albumin TSH Urine Color Yellow Urine Clarity Clear Urine pH 5.5 Ur Specific [place] 1.025 Urine Protein >=300 H Urine Ketones Negative Urine Blood Moderate H Urine Nitrite Negative Urine Bilirubin Negative Urine Urobilinogen 0.2 Ur Leukocyte Esterase Negative Urine RBC 10-20 H Urine WBC 0-2 Ur Epithelial Cells Negative Urine Crystals Few Amorphous Urine Bacteria Few Urine Casts 3-5 Hyaline Urine Mucus Trace Ur Culture Indicated? No Urine Glucose Negative Urine Opiates Screen Negative Urine Methadone Screen Negative Ur Barbiturates Screen Negative Ur Tricyclics Screen Negative Ur Amphetamines Screen Negative U Benzodiazepines Scrn Negative Urine Cocaine Screen Negative Ur THC Screen Negative Ethyl Alcohol COVID-19 Source SARS-CoV-2 (PCR) Last Vital Signs Temp 36.6 C 02/19/22 21:32 Pulse 73 02/19/22 21:32 Resp 18 02/20/22 00:35 BP 99/65 L 02/19/22 21:32 Pulse Ox 95 02/19/22 21:32 PAWSS Have you Been Recently Intoxicated or Drunk Within the Last 30 days?: Yes Have you Ever Experienced Previous Episodes of Alcohol Withdrawal?: No Have you ever Experienced Withdrawal Seizures?: No Have you ever Experienced Delirium Tremens(DT)s?: No Have you ever undergone Alcohol Rehabilitation Treatment (i.e, inpt ot outpatient treatment programs)?: No Have you ever Experienced Blackouts?: No Have you ever Combined Alcohol with other Downers within the last 90 days?: No Have you ever Combined Alcohol with any other Substance of Abuse during the last 90 days?: No Positive Blood Alcohol level on Presentation? [PCS.BAL]: No Evidence of Increased Autonomic Activity (i.e. HR>120, tremor, sweating, agitation, nausea)?: No Result: 1
[2022-02-20 01:26] LABS: Troponin I < 50 ng/L (<or=60)
[2022-02-20] MEDS: MAGNESIUM SULFATE 8.12 MEQ, MULTIVITAMIN 10 ML, THIAMINE 100 MG, FOLIC ACID 1 MG in Nor... 168.867 MG IV (03:01)
[2022-02-20] MEDS: Acetaminophen 325 MG TAB 650 MG PO (04:46)
[2022-02-20] MEDS: Normal Saline Flush 10 ML SYR IVP ×4 (04:48→23:04)
[2022-02-20 06:21] LABS: Bilirubin Negative (Negative); Blood Large (Negative); Clarity Cloudy (Clear); Glucose Negative (Negative); Ketones Trace mg/dL (Negative); Leukocyte Esterase Negative (Negative); Nitrite Negative (Negative); Specific Gravity 1.025 (1.005-1.025); Urobilinogen 0.2 EU/dL (Up TO 0.2); pH 5.5 (5-8)
[2022-02-20 06:28] LABS: RBC >50 HPF (0-2)
[2022-02-20 06:29] LABS: C & S Indicated? Yes
[2022-02-20 06:36] LABS: HCT 29.9 % (40.0-50.0); HGB 10.5 g/dL (13.5-17.5); MCH 32.7 pg (27.0-33.0); MCHC 35.1 % (32.0-36.0); MCV 93.1 fL (80-95); MPV 9.1 fL (8.0-11.0); Platelet Count 167 10^3/uL (130-400); RBC 3.21 10^6/uL (4.36-5.78); RDW 12.3 % (11.8-14.1); RDW-SD 42.4 fL; Reticulocyte 1.9 % (0.5-2.4); WBC 9.05 10^3/uL (4.4-10.8)
[2022-02-20 06:45] LABS: Anion Gap 7.2 mmol/L (3-11); BUN 16 mg/dL (7-18); CO2 20.8 mmol/L (21.0-32.0); CREATININE 0.8 mg/dL (0.70-1.30); Calcium 7.6 mg/dL (8.5-10.1); Chloride 91 mmol/L (98-107); Glucose 103 mg/dL (74-106)
[2022-02-20 06:52] LABS: Sodium 119 mmol/L (136-145)
[2022-02-20 06:53] LABS: Iron 55 ug/dL (65-175); Total Iron Binding Capacity 219 ug/dL (250-450); Transferrin Sat 25 % (20-55)
--- NOTE | 2022-02-20 08:40 | PUCC_ITS ---
General Date of Service Date of service: 02/20/22 Time of Service: 08:44 Reason for Admission to ICU: Multi-trauma Assessment and Plan Assessment and plan (1) Multiple rib fractures: Status: Acute Qualifiers: Encounter type: initial encounter Fracture type: closed Laterality: left Qualified Code(s): S22.42XA - Multiple fractures of ribs, left side, initial encounter for closed fracture (2) Lumbar vertebral fracture: Status: Acute Qualifiers: Encounter type: initial encounter Fracture morphology: other fracture Fracture type: closed Lumbar vertebra fracture level: L4 Qualified Code(s): S32.048A - Other fracture of fourth lumbar vertebra, initial encounter for closed fracture (3) Pulmonary contusion: Status: Acute Qualifiers: Encounter type: initial encounter Laterality: left Qualified Code(s): S27.321A - Contusion of lung, unilateral, initial encounter (4) Bronchiectasis: Status: Acute Qualifiers: Bronchiectasis type: uncomplicated Qualified Code(s): J47.9 - Bronchiectasis, uncomplicated (5) Hypertension: Status: Chronic (6) Emphysema lung: Status: Acute Qualifiers: Emphysema type: centrilobular Qualified Code(s): J43.2 - Centrilobular emphysema (7) Hyponatremia: Status: Acute (8) Anemia: Status: Chronic Qualifiers: Anemia type: iron deficiency Iron deficiency anemia type: unspecified iron deficiency Qualified Code(s): D50.9 - Iron deficiency anemia, unspecified (9) Hematuria: Status: Acute Qualifiers: Hematuria type: asymptomatic microscopic Qualified Code(s): R31.21 - Asymptomatic microscopic hematuria (10) Iron deficiency: Status: Acute (11) Hypocalcemia: Status: Acute (12) Alcohol intoxication: Status: Acute Qualifiers: Complication of substance-induced condition: uncomplicated Qualified Code(s): F10.920 - Alcohol use, unspecified with intoxication, uncomplicated (13) Blunt trauma of multiple sites of trunk: Status: Acute (14) Blunt head trauma: Status: Acute Assessment and plan: This is a 71 yo man admitted to the ICU following a fall resulting in multiple location left sided #2-8 rib fractures, left clavicle fracture, L4-L5-S1 compression fracture and pulmonary contusions with hyponatremia. With regard to his trauma - the left sided rib fractures will need more aggressive main control. Given his alcohol intake and lack of recollection of the events he likely had some sort of aspiration event. He currently is taking very shallow breaths, and could potentially develop a flail chest given the location of the fractures. He is a very high risk for developing pneumonia so ability to participate in airway clearance and appropriate tidal breathing is paramount. I think it is reasonable to have anesthesia attempt a block for the ribs, however given the multiple fracture locations and the wide distribution of fractures, in my opinion he needs to be on a more aggressive systemic pain regimen. I would avoid opioids in him if possible given that they will reduce the respiratory rate, increasing the risk of atelectasis and pneumonia. He is written for Tylenol and gabapentin but recommend starting a ketamine infusion. The benefits of this include: augmentation of hemodynamics, bronchodilation, will not reduce respiratory rate and is safe. We can work on coming off the ketamine after he begins taking more intentionally deep breaths. With regard to his hyponatremia, it seems likely that this is beer potomania, however, I have added further diagnostic testing to be sure we are not missing anything. He will be on 1.5L fluid restriction. Given the events surround his fall are unknown, I cannot rule out seizure in him, therefore the sodium should be actively corrected, albeit slowly, as we do not know the timeline of the hyponatremia. His Na did not budges after 1L NS. I will give him 50cc of 3% saline and recheck sodium regularly. If his sodium does not budge after this I will consider putting him on a DDAVP clamp with a hypertonic saline infusion (DDAVP clamp given alcoholism and higher risk for over correction). Qualifiers: Encounter type: initial encounter Qualified Code(s): S09.8XXA - Other specified injuries of head, initial encounter Recommendations Pulmonary: Pulmonary Contusion - appropriate pain control - incentive spirometry - Duonebs tid - observation - no need for further imaging unless clinical change Multi-level rib fractures - anesthesia to attempt nerve block - recommend low dose ketamine infusion to start - repeat assessments for flail chest - high risk - already written for Tylenol, gabapentin - no need for further imaging unless clinical change Emphysema - Duoneb tid as above Cardiac: h/o hypertension - agree with holding shahnaz meds for now Renal: Hyponatremia - s/p 1L NS - 50cc 3% saline one time - serum and urine osmalality ordered - interpret with caution has received NS in ED - urine sodium ordered- interpret with caution has received NS in ED - TSH normal - random serum cortisol - electrolyte q4h until corrected - fluid restriction to 1.5L - if sodium still not improving on next check, will consider DDAVP clamp and HTS infusion: - DDAVP 2mcg IV q8h - 3% saline infusion 50cc/hr to start - goal to raise Na 6-8 in 24 hours Hypocalcemia - continue to monitor Hematuria - CT negative - continue to monitor - CPK normal I&O: Intake & Output 02/17/22 02/18/22 02/19/22 02/20/22 23:59 23:59 23:59 23:59 Intake Total 1000 / 1000 737.323 / 737.323 Output Total 300 / 300 340 / 340 Balance 700 / 700 397.323 / 397.323 Weight 72.7 kg 73.2 kg Daily Fluid Goal:: even GI Nutrition: Nutrition - regular diet with 1.5L fluid restriction Date of Last Bowel Movement: 02/19/22 Infectious Disease: No acute concerns Hematologic: Iron deficiency anemia - surgery has written for IV iron Neurologic: Alcohol intoxication - CIWA zero, continue to monitor - s/p banana bag - recommend PO MVI, thiamine and folate Fall resulting in multi-trauma - unknown circumstances - will defer secondary and tertiary assessments to surgical team who is consulted Endocrine: No acute concerns Lines: PIV Prophylaxis: no GI ppx indicated at this time recommend DVT ppx and monitor for more substantial bleeding in urine - Lovenox to start tomorrow morning Code Status: Resuscitation Status Full Code Subjective Critical and life-threatening events over the past 24 hours: This is a 71 yo man with hypertension who was brought to the ED after being found down by his roommate for an unknown amount of time. He was assessed and found to have multiple fractures including his left clavicle and left ribs 2-8 (anterior, posterior and lateral) and some superficial lacerations and ecchymoses. He also has an acute L4 and L5 compression fractures and a possible superior endplate compression fracture at S1. His sodium was also found to be 1 19. There are no prior sodium levels in the chart since 2013 (at which time the sodium was normal). Based on his Chest CT he also has pulmonary contusions, emphysema but no pneumothorax seen. He also has calcifications in the lung and spleen indicative of prior granulomatous disease. He was found to have blood in his urine but CT abdomen was nonrevealing - although he does have kidney cysts. He was given 1L NS in the ED with no change whatsoever in his sodium. On my assessment he does not appear to have any neurological compromise, although the events prior to him being found are unknown (he could have had a seizure potentially prior to being found for instance). He is having significant left chest pain that is limiting his ability to take in deep breaths. Exam Narrative Exam Narrative: Gen: NAD, normal respiratory effort, well-nourished, bruising, abrasions and lacerations on face/arms HENT: PERRL, moist oral mucosa, Mallampati 2, No LAD or JVD Chest: No respiratory distress, normal appearance of chest - no flail chest currently. Small tidal volume breathings. Rhonchi/crackles throughout bilaterally. Heart: regular rate and rhythym, no murmurs, rubs or gallops Abdomen: Non-distended, soft, non tender Extremities: No clubbing, edema, cyanosis, rashes Neuro: AAOx3 , non focal Psych: cooperative, appropriate mental affect Most Recent VS/Results Last Vital Signs Temp 38.1 C H 02/20/22 08:30 Pulse 83 02/20/22 08:30 Resp 20 02/20/22 08:30 BP 151/71 H 02/20/22 08:30 Pulse Ox 92 02/20/22 08:38 Laboratory Results - last 24 hr 02/19/22 02/19/22 02/19/22 21:45 21:45 21:45 WBC 9.54 RBC 3.45 L Hgb 11.7 L Hct 32.4 L MCV 93.9 MCH 33.9 H MCHC 36.1 H RDW 12.1 Plt Count 183 MPV 8.6 Reticulocyte % (Auto) Immature Gran % 1.4 Neutrophils % 62.2 Lymphocytes % 26.2 Monocytes % 7.5 Eosinophils % 2.3 Basophils % 0.4 Nucleated RBC % 0.0 Absolute Neutrophils 5.93 Absolute Lymphocytes 2.50 Absolute Monocytes 0.72 Absolute Eosinophils 0.22 Absolute Basophils 0.04 PT INR APTT Sodium 119 L* Potassium 4.0 Chloride 88 L Carbon Dioxide 21.9 Anion Gap 9.1 BUN 17 Creatinine 0.9 Estimated GFR/1.73 m2 >= 60.00 Glucose 89 Calcium 7.8 L Magnesium 2.0 Iron TIBC Transferrin % Sat Total Bilirubin 0.3 AST 31 ALT 29 Alkaline Phosphatase 120 H Creatine Kinase Troponin I < 50 Total Protein 6.7 Albumin 3.0 L TSH 3.73 Urine Color Urine Clarity Urine pH Ur Specific [place] Urine Protein Urine Ketones Urine Blood Urine Nitrite Urine Bilirubin Urine Urobilinogen Ur Leukocyte Esterase Urine RBC Urine WBC Ur Epithelial Cells Urine Crystals Urine Bacteria Urine Casts Urine Mucus Ur Culture Indicated? Urine Glucose Urine Opiates Screen Urine Methadone Screen Ur Barbiturates Screen Ur Tricyclics Screen Ur Amphetamines Screen U Benzodiazepines Scrn Urine Cocaine Screen Ur THC Screen Ethyl Alcohol 155.8 H COVID-19 Source SARS-CoV-2 (PCR) 02/19/22 02/19/22 02/19/22 21:45 21:55 22:52 WBC RBC Hgb Hct MCV MCH MCHC RDW Plt Count MPV Reticulocyte % (Auto) Immature Gran % Neutrophils % Lymphocytes % Monocytes % Eosinophils % Basophils % Nucleated RBC % Absolute Neutrophils Absolute Lymphocytes Absolute Monocytes Absolute Eosinophils Absolute Basophils PT 9.6 INR 1.0 APTT 24.1 Sodium Potassium Chloride Carbon Dioxide Anion Gap BUN Creatinine Estimated GFR/1.73 m2 Glucose Calcium Magnesium Iron TIBC Transferrin % Sat Total Bilirubin AST ALT Alkaline Phosphatase Creatine Kinase 195 Troponin I Total Protein Albumin TSH Urine Color Urine Clarity Urine pH Ur Specific [place] Urine Protein Urine Ketones Urine Blood Urine Nitrite Urine Bilirubin Urine Urobilinogen Ur Leukocyte Esterase Urine RBC Urine WBC Ur Epithelial Cells Urine Crystals Urine Bacteria Urine Casts Urine Mucus Ur Culture Indicated? Urine Glucose Urine Opiates Screen Urine Methadone Screen Ur Barbiturates Screen Ur Tricyclics Screen Ur Amphetamines Screen U Benzodiazepines Scrn Urine Cocaine Screen Ur THC Screen Ethyl Alcohol COVID-19 Source Nasal/Nares SARS-CoV-2 (PCR) Negative 02/19/22 02/19/22 02/20/22 23:20 23:20 01:03 WBC RBC Hgb Hct MCV MCH MCHC RDW Plt Count MPV Reticulocyte % (Auto) Immature Gran % Neutrophils % Lymphocytes % Monocytes % Eosinophils % Basophils % Nucleated RBC % Absolute Neutrophils Absolute Lymphocytes Absolute Monocytes Absolute Eosinophils Absolute Basophils PT INR APTT Sodium Potassium Chloride Carbon Dioxide Anion Gap BUN Creatinine Estimated GFR/1.73 m2 Glucose Calcium Magnesium Iron TIBC Transferrin % Sat Total Bilirubin AST ALT Alkaline Phosphatase Creatine Kinase Troponin I < 50 Total Protein Albumin TSH Urine Color Yellow Urine Clarity Clear Urine pH 5.5 Ur Specific [place] 1.025 Urine Protein >=300 H Urine Ketones Negative Urine Blood Moderate H Urine Nitrite Negative Urine Bilirubin Negative Urine Urobilinogen 0.2 Ur Leukocyte Esterase Negative Urine RBC 10-20 H Urine WBC 0-2 Ur Epithelial Cells Negative Urine Crystals Few Amorphous Urine Bacteria Few Urine Casts 3-5 Hyaline Urine Mucus Trace Ur Culture Indicated? No Urine Glucose Negative Urine Opiates Screen Negative Urine Methadone Screen Negative Ur Barbiturates Screen Negative Ur Tricyclics Screen Negative Ur Amphetamines Screen Negative U Benzodiazepines Scrn Negative Urine Cocaine Screen Negative Ur THC Screen Negative Ethyl Alcohol COVID-19 Source SARS-CoV-2 (PCR) 02/20/22 02/20/22 02/20/22 06:00 06:00 06:00 WBC 9.05 RBC 3.21 L Hgb 10.5 L Hct 29.9 L MCV 93.1 MCH 32.7 MCHC 35.1 RDW 12.3 Plt Count 167 MPV 9.1 Reticulocyte % (Auto) Immature Gran % Neutrophils % Lymphocytes % Monocytes % Eosinophils % Basophils % Nucleated RBC % Absolute Neutrophils Absolute Lymphocytes Absolute Monocytes Absolute Eosinophils Absolute Basophils PT INR APTT Sodium 119 L* Potassium 5.0 D Chloride 91 L Carbon Dioxide 20.8 L Anion Gap 7.2 BUN 16 Creatinine 0.8 Estimated GFR/1.73 m2 >= 60.00 Glucose 103 Calcium 7.6 L Magnesium Iron 55 L TIBC 219 L Transferrin % Sat 25 Total Bilirubin AST ALT Alkaline Phosphatase Creatine Kinase Troponin I Total Protein Albumin TSH Urine Color Urine Clarity Urine pH Ur Specific [place] Urine Protein Urine Ketones Urine Blood Urine Nitrite Urine Bilirubin Urine Urobilinogen Ur Leukocyte Esterase Urine RBC Urine WBC Ur Epithelial Cells Urine Crystals Urine Bacteria Urine Casts Urine Mucus Ur Culture Indicated? Urine Glucose Urine Opiates Screen Urine Methadone Screen Ur Barbiturates Screen Ur Tricyclics Screen Ur Amphetamines Screen U Benzodiazepines Scrn Urine Cocaine Screen Ur THC Screen Ethyl Alcohol COVID-19 Source SARS-CoV-2 (PCR) 02/20/22 02/20/22 06:00 06:05 WBC RBC Hgb Hct MCV MCH MCHC RDW Plt Count MPV Reticulocyte % (Auto) 1.9 Immature Gran % Neutrophils % Lymphocytes % Monocytes % Eosinophils % Basophils % Nucleated RBC % Absolute Neutrophils Absolute Lymphocytes Absolute Monocytes Absolute Eosinophils Absolute Basophils PT INR APTT Sodium Potassium Chloride Carbon Dioxide Anion Gap BUN Creatinine Estimated GFR/1.73 m2 Glucose Calcium Magnesium Iron TIBC Transferrin % Sat Total Bilirubin AST ALT Alkaline Phosphatase Creatine Kinase Troponin I Total Protein Albumin TSH Urine Color Yellow Urine Clarity Cloudy Urine pH 5.5 Ur Specific [place] 1.025 Urine Protein >=300 H Urine Ketones Trace H Urine Blood Large H Urine Nitrite Negative Urine Bilirubin Negative Urine Urobilinogen 0.2 Ur Leukocyte Esterase Negative Urine RBC >50 H Urine WBC Ur Epithelial Cells Urine Crystals Not Applicable Urine Bacteria Urine Casts Urine Mucus Not Applicable Ur Culture Indicated? Yes Urine Glucose Negative Urine Opiates Screen Urine Methadone Screen Ur Barbiturates Screen Ur Tricyclics Screen Ur Amphetamines Screen U Benzodiazepines Scrn Urine Cocaine Screen Ur THC Screen Ethyl Alcohol COVID-19 Source SARS-CoV-2 (PCR) Review of Systems All systems reviewed & are unremarkable except as noted in HPI and below Time spent with patient Time spent in Critical Care: 45 Time spent in Critical care included: Coordination of care, Chart review, Documenting critically ill care, Time at immediate bedside and Discussing critically ill care with other medical staff Multi-Disciplinary Checklist Lines/Tubes CENTRAL LINE: no ARTERIAL LINE: no MOROCHO: no ENDOTRACHEAL TUBE: no ICU Maintenance GLUCOSE 140-180mg/dL: yes NUTRITION AT GOAL: yes PRESSURE ULCER: no RESTRAINTS: no ANTIBIOTICS(if yes, consider Stewardship): No Social Issues FAMILY UPDATED: yes PT/OT: no, Reason/Intervention: will reassess once pain control for fractures stable GOALS/DISPOSITION/LUMBER STRAIGHTENED: yes CODE STATUS: Full Prophylaxis DVT PROPHYLAXIS: no Reason/Intervention: will start Lovenox tomorrow to further monitor hematuria and pulmonary contusion GI PROPHYLAXIS: no
[2022-02-20] MEDS: Gabapentin 100 MG CAP PO ×3 (08:45→18:12)
[2022-02-20] MEDS: Lidocaine 5% Patch 1 PATCH TP (08:46)
--- NOTE | 2022-02-20 09:24 | SCONE_ITS ---
Documented by User: STARLA Maki 02/20/22 10:57 Date of service: 02/20/22 Time of Service: 09:24 Assessment and Plan Assessment and plan (1) Blunt trauma of multiple sites of trunk: Status: Acute (2) Multiple rib fractures: Status: Acute Assessment and plan: Patient is struggling with pain control. Discussed with the patient the option of nerve block for patient control. Patient is interested in pursuing this. Will discuss with anesthesia for possible nerve block. Continue deep breathing and use of incentive spirometer. Encouraged sitting up in the chair, later this morning Qualifiers: Encounter type: initial encounter Fracture type: closed Laterality: left Qualified Code(s): S22.42XA - Multiple fractures of ribs, left side, initial encounter for closed fracture (3) Blunt head trauma: Status: Acute Qualifiers: Encounter type: initial encounter Qualified Code(s): S09.8XXA - Other specified injuries of head, initial encounter (4) Fall: Status: Acute History of Present Illness History of Present Illness Chief Complaint: Multiple Rib Fractures Narrative: 71 y/o male with a history of HTN presented to the ER after a fall vs syncopal event at home. Patient was found by his room mate on the floor and had been down for an unknown period of time. He was found to have a forehead laceration, multiple rib fractures, clavicular fracture and numerous skin tears. Patient is not taking deep breaths secondary to his left sided rib discomfort. He denies any nausea or vomiting. He denies any abdominal pain. PFSH All Active Problems (Updated 02/20/22 @ 09:31 by Samaria Sanchez MD) Hypertension (Chronic) Alcohol intoxication (Acute) Hypocalcemia (Acute) Iron deficiency (Acute) Hematuria (Acute) Anemia (Chronic) Emphysema lung (Acute) Bronchiectasis (Acute) Pulmonary contusion (Acute) Fall (Acute) Blunt trauma of multiple sites of trunk (Acute) Blunt head trauma (Acute) Hyponatremia (Acute) Multiple rib fractures (Acute) Lumbar vertebral fracture (Acute) Social History Smoking/Tobacco Use Status: Current every day Smoking risk assessment performed?: Yes Alcohol Intake: current Alcohol Intake frequency: 0-2 drinks per day Alcohol type: beer Drug use: Never Details: Patient reports drinking a 25oz beer tonight. Exam Const General: cooperative and acute distress mild Orientation: alert and oriented x3 Resp Effort & Inspection: able to speak in complete sentences, audible wheezes, no cough and grunting GI Palpation: soft, no guarding and nontender Results Last Vital Signs Temp 38.1 C H 02/20/22 08:30 Pulse 83 02/20/22 08:30 Resp 20 02/20/22 08:30 BP 151/71 H 02/20/22 08:30 Pulse Ox 92 02/20/22 08:38 Labs Result diagrams: 02/20/22 06:00 02/20/22 19:00 Labs: Laboratory Results - last 24 hr 02/19/22 02/19/22 02/19/22 21:45 21:45 21:45 WBC 9.54 RBC 3.45 L Hgb 11.7 L Hct 32.4 L MCV 93.9 MCH 33.9 H MCHC 36.1 H RDW 12.1 Plt Count 183 MPV 8.6 Reticulocyte % (Auto) Immature Gran % 1.4 Neutrophils % 62.2 Lymphocytes % 26.2 Monocytes % 7.5 Eosinophils % 2.3 Basophils % 0.4 Nucleated RBC % 0.0 Absolute Neutrophils 5.93 Absolute Lymphocytes 2.50 Absolute Monocytes 0.72 Absolute Eosinophils 0.22 Absolute Basophils 0.04 PT INR APTT Sodium 119 L* Potassium 4.0 Chloride 88 L Carbon Dioxide 21.9 Anion Gap 9.1 BUN 17 Creatinine 0.9 Estimated GFR/1.73 m2 >= 60.00 Glucose 89 Calcium 7.8 L Magnesium 2.0 Iron TIBC Transferrin % Sat Total Bilirubin 0.3 AST 31 ALT 29 Alkaline Phosphatase 120 H Creatine Kinase Troponin I < 50 Total Protein 6.7 Albumin 3.0 L TSH 3.73 Urine Color Urine Clarity Urine pH Ur Specific Dazey Urine Protein Urine Ketones Urine Blood Urine Nitrite Urine Bilirubin Urine Urobilinogen Ur Leukocyte Esterase Urine RBC Urine WBC Ur Epithelial Cells Urine Crystals Urine Bacteria Urine Casts Urine Mucus Ur Culture Indicated? Urine Glucose Urine Opiates Screen Urine Methadone Screen Ur Barbiturates Screen Ur Tricyclics Screen Ur Amphetamines Screen U Benzodiazepines Scrn Urine Cocaine Screen Ur THC Screen Ethyl Alcohol 155.8 H COVID-19 Source SARS-CoV-2 (PCR) 02/19/22 02/19/22 02/19/22 21:45 21:55 22:52 WBC RBC Hgb Hct MCV MCH MCHC RDW Plt Count MPV Reticulocyte % (Auto) Immature Gran % Neutrophils % Lymphocytes % Monocytes % Eosinophils % Basophils % Nucleated RBC % Absolute Neutrophils Absolute Lymphocytes Absolute Monocytes Absolute Eosinophils Absolute Basophils PT 9.6 INR 1.0 APTT 24.1 Sodium Potassium Chloride Carbon Dioxide Anion Gap BUN Creatinine Estimated GFR/1.73 m2 Glucose Calcium Magnesium Iron TIBC Transferrin % Sat Total Bilirubin AST ALT Alkaline Phosphatase Creatine Kinase 195 Troponin I Total Protein Albumin TSH Urine Color Urine Clarity Urine pH Ur Specific Dazey Urine Protein Urine Ketones Urine Blood Urine Nitrite Urine Bilirubin Urine Urobilinogen Ur Leukocyte Esterase Urine RBC Urine WBC Ur Epithelial Cells Urine Crystals Urine Bacteria Urine Casts Urine Mucus Ur Culture Indicated? Urine Glucose Urine Opiates Screen Urine Methadone Screen Ur Barbiturates Screen Ur Tricyclics Screen Ur Amphetamines Screen U Benzodiazepines Scrn Urine Cocaine Screen Ur THC Screen Ethyl Alcohol COVID-19 Source Nasal/Nares SARS-CoV-2 (PCR) Negative 02/19/22 02/19/22 02/20/22 23:20 23:20 01:03 WBC RBC Hgb Hct MCV MCH MCHC RDW Plt Count MPV Reticulocyte % (Auto) Immature Gran % Neutrophils % Lymphocytes % Monocytes % Eosinophils % Basophils % Nucleated RBC % Absolute Neutrophils Absolute Lymphocytes Absolute Monocytes Absolute Eosinophils Absolute Basophils PT INR APTT Sodium Potassium Chloride Carbon Dioxide Anion Gap BUN Creatinine Estimated GFR/1.73 m2 Glucose Calcium Magnesium Iron TIBC Transferrin % Sat Total Bilirubin AST ALT Alkaline Phosphatase Creatine Kinase Troponin I < 50 Total Protein Albumin TSH Urine Color Yellow Urine Clarity Clear Urine pH 5.5 Ur Specific Dazey 1.025 Urine Protein >=300 H Urine Ketones Negative Urine Blood Moderate H Urine Nitrite Negative Urine Bilirubin Negative Urine Urobilinogen 0.2 Ur Leukocyte Esterase Negative Urine RBC 10-20 H Urine WBC 0-2 Ur Epithelial Cells Negative Urine Crystals Few Amorphous Urine Bacteria Few Urine Casts 3-5 Hyaline Urine Mucus Trace Ur Culture Indicated? No Urine Glucose Negative Urine Opiates Screen Negative Urine Methadone Screen Negative Ur Barbiturates Screen Negative Ur Tricyclics Screen Negative Ur Amphetamines Screen Negative U Benzodiazepines Scrn Negative Urine Cocaine Screen Negative Ur THC Screen Negative Ethyl Alcohol COVID-19 Source SARS-CoV-2 (PCR) 02/20/22 02/20/22 02/20/22 06:00 06:00 06:00 WBC 9.05 RBC 3.21 L Hgb 10.5 L Hct 29.9 L MCV 93.1 MCH 32.7 MCHC 35.1 RDW 12.3 Plt Count 167 MPV 9.1 Reticulocyte % (Auto) Immature Gran % Neutrophils % Lymphocytes % Monocytes % Eosinophils % Basophils % Nucleated RBC % Absolute Neutrophils Absolute Lymphocytes Absolute Monocytes Absolute Eosinophils Absolute Basophils PT INR APTT Sodium 119 L* Potassium 5.0 D Chloride 91 L Carbon Dioxide 20.8 L Anion Gap 7.2 BUN 16 Creatinine 0.8 Estimated GFR/1.73 m2 >= 60.00 Glucose 103 Calcium 7.6 L Magnesium Iron 55 L TIBC 219 L Transferrin % Sat 25 Total Bilirubin AST ALT Alkaline Phosphatase Creatine Kinase Troponin I Total Protein Albumin TSH Urine Color Urine Clarity Urine pH Ur Specific Dazey Urine Protein Urine Ketones Urine Blood Urine Nitrite Urine Bilirubin Urine Urobilinogen Ur Leukocyte Esterase Urine RBC Urine WBC Ur Epithelial Cells Urine Crystals Urine Bacteria Urine Casts Urine Mucus Ur Culture Indicated? Urine Glucose Urine Opiates Screen Urine Methadone Screen Ur Barbiturates Screen Ur Tricyclics Screen Ur Amphetamines Screen U Benzodiazepines Scrn Urine Cocaine Screen Ur THC Screen Ethyl Alcohol COVID-19 Source SARS-CoV-2 (PCR) 02/20/22 02/20/22 06:00 06:05 WBC RBC Hgb Hct MCV MCH MCHC RDW Plt Count MPV Reticulocyte % (Auto) 1.9 Immature Gran % Neutrophils % Lymphocytes % Monocytes % Eosinophils % Basophils % Nucleated RBC % Absolute Neutrophils Absolute Lymphocytes Absolute Monocytes Absolute Eosinophils Absolute Basophils PT INR APTT Sodium Potassium Chloride Carbon Dioxide Anion Gap BUN Creatinine Estimated GFR/1.73 m2 Glucose Calcium Magnesium Iron TIBC Transferrin % Sat Total Bilirubin AST ALT Alkaline Phosphatase Creatine Kinase Troponin I Total Protein Albumin TSH Urine Color Yellow Urine Clarity Cloudy Urine pH 5.5 Ur Specific Dazey 1.025 Urine Protein >=300 H Urine Ketones Trace H Urine Blood Large H Urine Nitrite Negative Urine Bilirubin Negative Urine Urobilinogen 0.2 Ur Leukocyte Esterase Negative Urine RBC >50 H Urine WBC Ur Epithelial Cells Urine Crystals Not Applicable Urine Bacteria Urine Casts Urine Mucus Not Applicable Ur Culture Indicated? Yes Urine Glucose Negative Urine Opiates Screen Urine Methadone Screen Ur Barbiturates Screen Ur Tricyclics Screen Ur Amphetamines Screen U Benzodiazepines Scrn Urine Cocaine Screen Ur THC Screen Ethyl Alcohol COVID-19 Source SARS-CoV-2 (PCR) Documented by User: Margarita Leroy DO Areli 02/20/22 20:05 Assessment and Plan Assessment and plan (1) Blunt trauma of multiple sites of trunk: Status: Acute (2) Multiple rib fractures: Status: Acute Assessment and plan: Patient is struggling with pain control. Discussed with the patient the option of nerve block for patient control. Patient is interested in pursuing this. Will discuss with anesthesia for possible nerve block. Continue deep breathing and use of incentive spirometer. Encouraged sitting up in the chair, later this morning agree w/ above. Pulm is taking charge of his care. No acute surgical intervention will re-eval at your request Qualifiers: Encounter type: initial encounter Fracture type: closed Laterality: le ft Qualified Code(s): S22.42XA - Multiple fractures of ribs, left side, initial encounter for closed fracture (3) Blunt head trauma: Status: Acute Qualifiers: Encounter type: initial encounter Qualified Code(s): S09.8XXA - Other specified injuries of head, initial encounter (4) Fall: Status: Acute PFSH All Active Problems (Updated 02/20/22 @ 09:31 by Samaria Sanchez MD) Hypertension (Chronic) Alcohol intoxication (Acute) Hypocalcemia (Acute) Iron deficiency (Acute) Hematuria (Acute) Anemia (Chronic) Emphysema lung (Acute) Bronchiectasis (Acute) Pulmonary contusion (Acute) Fall (Acute) Blunt trauma of multiple sites of trunk (Acute) Blunt head trauma (Acute) Hyponatremia (Acute) Multiple rib fractures (Acute) Lumbar vertebral fracture (Acute) Social History Smoking/Tobacco Use Status: Current every day Smoking risk assessment performed?: Yes Alcohol Intake: current Alcohol Intake frequency: 0-2 drinks per day Alcohol type: beer Drug use: Never Details: Patient reports drinking a 25oz beer tonight. Results Labs Result diagrams: 02/20/22 06:00 02/20/22 19:00
--- NOTE | 2022-02-20 10:33 | W.ANESNERVE ---
Nerve Block Single Injection Procedure Date and Time Date Performed: 02/20/22 Procedure Start: 10:00 Location Where Procedure Performed Procedure Location: Intensive Care Unit Reason Performed: Acute Pain Management (Shortness of breath) Pain Diagnosis: Rib Pain Requesting Provider: Samaria Sanchez Timeout Performed Timeout Performed: Yes Monitoring Used ECG, Blood Pressure, SpO2 and See EMR for corresponding vital signs Sterility Sterility: Hand Hygiene, Surgical Cap, Surgical Mask, Sterile Gloves, Sterile Drape/Sheet and Chlorhexidine Sedation Given During Procedure Sedation Given (Indicate Dose Given): No Sedation given Patient Mental Status Patient Mental Status: Awake Nerve Block 1st Nerve Block: Laterality: Left Block Type: Erector Spinae (Upper) Needle / Catheter Used: 100mm SonoPlex II Local Anesthetic Bolus (Indicate Dose Given): Lidocaine used for local infiltration of skin, Injected in 3-5ml increments after negative blood aspiration and Bupivacaine 0.25% Dose:: 30ml Additives (Indicate Dose Given): Epinephrine to make 1:400,000 (2.5mcg/ml) Dose:: 75mcg and Decadron Dose:: 5mg Ultrasound: Sterile probe cover and gel used Ultrasound Image Saved?: Yes Nerve Stimulator: Not Used Paresthesia: None Procedure Tolerated: No Complications and Patient tolerated well Procedure Outcome: Successful Performed By: Eligio العراقي 2nd Nerve Block: Laterality: Left Block Type: Erector Spinae (Lower) Needle / Catheter Used: 100mm SonoPlex II Local Anesthetic Bolus (Indicate Dose Given): Lidocaine used for local infiltration of skin, Injected in 3-5ml increments after negative blood aspiration and Bupivacaine 0.25% Dose:: 30ml Additives (Indicate Dose Given): Epinephrine to make 1:400,000 (2.5mcg/ml) Dose:: 75mcg and Decadron Dose:: 5mg Ultrasound: Sterile probe cover and gel used Ultrasound Image Saved?: Yes Nerve Stimulator: Not Used Paresthesia: None Procedure Tolerated: No Complications and Patient tolerated well Procedure Outcome: Successful Procedure Comment: Upper block seemed to provide good relief, lower block seems less effective, will reassess in 30 minutes and the likely start ketamine infusion. He is able to sit up by himself and lift left arm in sling but does complain of lower left front/lateral rib pain. Plan made with RN. Performed By: Eligio العراقي
--- NOTE | 2022-02-20 10:46 | PDOC.CMIN ---
- If Service Date Differs Date of service: 02/20/22 Time of Service: 10:46 Care Management Initial Assess REASON FOR HOSPITALIZATION:: multitrauma PAST MEDICAL HISTORY/PAST SURGICAL HISTORY:: All Active Problems. Fall (Acute). Blunt trauma of multiple sites of trunk (Acute). Blunt head trauma (Acute). Hyponatremia (Acute). Multiple rib fractures (Acute). Lumbar vertebral fracture (Acute) PREVIOUS FUNCTIONAL STATUS/SOCIAL/FAMILY SUPPORTS:: Barry lives in [place] with a friend, Barry. He has a son who lives in [place], and a daughter and son who live in [facility]. He has seven grandchildren, who all live locally. He is a who spent 21 years in the . 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 He is independent at baseline. CURRENT FUNCTIONAL STATUS:: Barry was lying in bed when CM met with him. He stated that he is in a lot of pain, but it is improving with the IV pain management. Per MD, he will continue to be monitored at ICU level of care for possible withdrawal and pain control. Barry reported that he is independent and does not anticipate needing any services upon his discharge. He declined support for alcohol cessation. CM will continue to follow. ADVANCE DIRECTIVES:: Not on file at [facility]. Has patient been provided with info about the portal/API?: Yes Did the patient sign up for the portal?: No CODE STATUS:: Full Code INSURANCE COVERAGE / FINANCIAL ISSUES:: [facility]/ [facility] CURRENT HOME/COMMUNITY SERVICES/EQUIPMENT:: No current services or equipment. PRIMARY CARE PHYSICIAN:: ALYCIA Thomson OR POTENTIAL DISCHARGE NEEDS:: Evaluations for further needs, follow up appointments. PATIENT/FAMILY EDUCATION NEEDS:: Review discharge instructions regarding activity levels and medications, discussion of self care needs including ask me three. ANTICIPATED BARRIERS TO DISCHARGE:: None identified. TRANSPORTATION:: Via private vehicle with a friend. PLAN:: Anticipate Barry will return home once medically cleared. He will likely transport via private vehicle by a friend or family. He will be evaluated to determine if further services are indicated at home. He will follow up with his PCP and discharge plan of care. CM will continue to follow.
[2022-02-20 11:17] LABS: Sodium, Urine 38 mmol/L
[2022-02-20 11:35] LABS: Anion Gap 7.5 mmol/L (3-11); CO2 22.5 mmol/L (21.0-32.0); Chloride 90 mmol/L (98-107); Potassium 4.6 mmol/L (3.5-5.1)
[2022-02-20 11:38] LABS: Sodium 120 mmol/L (136-145)
--- NOTE | 2022-02-20 11:39 | W.PM.PROGNOT ---
Date of Service Date of service: 02/20/22 Time of Service: 11:39 Assessment and Plan Assessment and plan (1) Fall: Status: Acute Assessment and plan: Patient was found down at home by his roommate the etiology of which is unclear. Obviously he has multiple contusions and rib fractures and left clavicular fracture as well as vertebral fractures. Patient will start ketamine drip which is being initiated and managed by anesthesia. We are presuming that his episode was due to alcoholic blackout. Seizures have not been excluded. Cardiac arrhythmias also have not been excluded. Troponin I levels have been normal x2 sets. 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 He is being monitored on [facility] protocol to watch for alcohol withdrawal. Patient was given thiamine and folic acid and multivitamins via banana bag last night. As the patient is alert and oriented and able to take oral medications he will be started on thiamine folic acid and multivitamin supplement along with magnesium. Qualifiers: Complication of substance-induced condition: uncomplicated Qualified Code(s): F10.920 - Alcohol use, unspecified with intoxication, uncomplicated (3) Multiple rib fractures: Status: Acute Assessment and plan: Status post nerve block left erector spinae. Begin ketamine drip per anesthesia Qualifiers: Encounter type: initial encounter Fracture type: closed Laterality: left Qualified Code(s): S22.42XA - Multiple fractures of ribs, left side, initial encounter for closed fracture (4) Lumbar vertebral fracture: Status: Acute Assessment and plan: Pain control as above. We will check his vitamin D levels and start him on calcium supplements and vitamin D supplement as needed. Qualifiers: Encounter type: initial encounter Lumbar vertebra fracture level: L4 Fracture type: closed Fracture morphology: other fracture Qualified Code(s): S32.048A - Other fracture of fourth lumbar vertebra, initial encounter for closed fracture (5) Blunt head trauma: Status: Acute Assessment and plan: Noncontrast CT scan of the head and cervical spine was negative for intracranial abnormalities and no skull fracture and no cervical spinal trauma Qualifiers: Encounter type: initial encounter Qualified Code(s): S09.8XXA - Other specified injuries of head, initial encounter (6) Blunt trauma of multiple sites of trunk: Status: Acute Assessment and plan: Multiple contusions and ecchymosis to the left chest and shoulder and to his face. He sustained multiple rib fractures which are being treated as noted above. (7) Pulmonary contusion: Status: Acute Assessment and plan: Pulmonary contusion secondary to trauma. He is at increased risk for flail chest. Pain control per anesthesia. Encourage patient to cough and deep breathe and use incentive spirometer. He is at high risk for developing pneumonia. Qualifiers: Encounter type: initial encounter Laterality: left Qualified Code(s): S27.321A - Contusion of lung, unilateral, initial encounter (8) Hematuria: Status: Acute Assessment and plan: Possible secondary to Schrader trauma. Continue to monitor urine output. No abnormality seen of his bladder prostate or kidneys other than simple renal cysts. If hematuria persists we will get a urology consult. Urine culture has been sent the patient is not on antibiotics at present time. Qualifiers: Hematuria type: asymptomatic microscopic Qualified Code(s): R31.21 - Asymptomatic microscopic hematuria (9) Iron deficiency: Status: Acute Assessment and plan: Patient was given parenteral iron per surgical service. However I think patient could try to take oral iron. (10) Hypertension: Status: Chronic Assessment and plan: Holding antihypertensives in the setting of recent fall. Monitor blood pressure for now. (11) Hyponatremia: Status: Acute Assessment and plan: Hyponatremia is probably secondary to beer potomania nevertheless serum osmolality has been sent off. Patient had minimal response to normal saline infusion. Dr. Sanchez is managing this w/ 3% saline infusion along w/ use of DDAVP to prevent over correction. (12) Bronchiectasis: Status: Acute Assessment and plan: encourage cough and deep breathing along w/ use of IS and acapella and scheduled bronchodilators. If he is producing any sputum will get culture as he is a set up for pneumonia w/ his underlying lung disease and rib fractures Qualifiers: Bronchiectasis type: uncomplicated Qualified Code(s): J47.9 - Bronchiectasis, uncomplicated (13) Emphysema lung: Status: Acute Assessment and plan: supplemental oxygen as needed to keep SPO2 over 90% and pulmonary toiletery and bronchodilators as noted above Qualifiers: Emphysema type: centrilobular Qualified Code(s): J43.2 - Centrilobular emphysema (14) Anemia: Status: Chronic Assessment and plan: put on PPI for GI protection and treat iron deficiency w/ oral supplements Qualifiers: Anemia type: iron deficiency Iron deficiency anemia type: unspecified iron deficiency Qualified Code(s): D50.9 - Iron deficiency anemia, unspecified (15) Hypocalcemia: Status: Acute Assessment and plan: calcium is 7.6 however when corrected for his low albumin his calcium is actually 8.4 Subjective Subjective Interval history since last seen: 71-year-old male with a history of hypertension chronic alcohol use who was admitted last night after being found down at home by his roommate. Unclear as to whether he had a syncopal spell or whether he had a seizure or just a blackout spell from drinking. Evaluation in the ER revealed he has hyponatremia serum sodium 119. He was intoxicated with a blood alcohol level of 155, urinalysis demonstrated hematuria. X-ray findings found left clavicular fracture and multiple rib fractures on left side including ribs 2 through 8. He also has L4 and L5 endplate fractures. CT of the chest abdomen pelvis was performed. In addition to the rib fractures and vertebral fractures he has infiltrates in left upper lobe and superior segment left lower lobe possibly an element of contusion as well as infiltrate in the left lingula. No pneumothorax no mediastinal hematoma no pleural effusions. Incidental findings of 2.6 fusiform infrarenal abdominal aortic aneurysm and benign cysts in both kidneys measuring up to 3 cm in size. Patient minimize amount of alcohol he drinks and he only drinks 1 iced light beer 24 ounces daily. Denies a history of alcohol withdrawal or seizures. Because of his serum sodium and indeterminate cause of his loss of consciousness patient was admitted to the intensive care unit while he is rehydrated and his electrolytes are corrected and while we are getting control of his pain. Surgery and anesthesia have been consulted as well as pulmonary. Anesthesia performed left-sided erector spinae blocks with bupivacaine and Decadron performing nerve blocks in the left upper and left lower erector spinae. Patient had some relief after the upper block but has had inadequate relief. Patient will now be started on a ketamine drip. Exam Narrative Exam Narrative: Elderly white male alert and oriented person place HEENT remarkable for right frontal laceration had primary closure Multiple ecchymoses over the face Chest wall with multiple ecchymosis as well as ecchymosis over the left lateral clavicle. He has tenderness over the clavicle and tenderness over multiple ribs on the left chest wall. Lungs with coarse rhonchi and wheezing diffusely bilaterally Heart is regular rate and rhythm Abdomen soft nontender no palpable masses no organomegaly Lower extremities no bruising of his knees hips or ankles. He has normal internal and external rotation and hip flexion extension without eliciting any pain. Neuro exam grossly intact no facial asymmetry no dysarthric speech flexion motions intact. Normal strength and range of motion of his legs normal strength and range of motion of his right arm. Left arm is in a sling. Objective Last Vital Signs Temp 38.1 C H 02/20/22 08:30 Pulse 83 02/20/22 08:30 Resp 20 02/20/22 08:30 BP 151/71 H 02/20/22 08:30 Pulse Ox 92 02/20/22 08:38 Laboratory Results - last 24 hr 02/19/22 02/19/22 02/19/22 21:45 21:45 21:45 WBC 9.54 RBC 3.45 L Hgb 11.7 L Hct 32.4 L MCV 93.9 MCH 33.9 H MCHC 36.1 H RDW 12.1 Plt Count 183 MPV 8.6 Reticulocyte % (Auto) Immature Gran % 1.4 Neutrophils % 62.2 Lymphocytes % 26.2 Monocytes % 7.5 Eosinophils % 2.3 Basophils % 0.4 Nucleated RBC % 0.0 Absolute Neutrophils 5.93 Absolute Lymphocytes 2.50 Absolute Monocytes 0.72 Absolute Eosinophils 0.22 Absolute Basophils 0.04 PT INR APTT Sodium 119 L* Potassium 4.0 Chloride 88 L Carbon Dioxide 21.9 Anion Gap 9.1 BUN 17 Creatinine 0.9 Estimated GFR/1.73 m2 >= 60.00 Glucose 89 Calcium 7.8 L Magnesium 2.0 Iron TIBC Transferrin % Sat Total Bilirubin 0.3 AST 31 ALT 29 Alkaline Phosphatase 120 H Creatine Kinase Troponin I < 50 Total Protein 6.7 Albumin 3.0 L TSH 3.73 Urine Color Urine Clarity Urine pH Ur Specific [place] Urine Protein Urine Ketones Urine Blood Urine Nitrite Urine Bilirubin Urine Urobilinogen Ur Leukocyte Esterase Urine RBC Urine WBC Ur Epithelial Cells Urine Crystals Urine Bacteria Urine Casts Urine Mucus Ur Culture Indicated? Ur Random Sodium Urine Glucose Urine Opiates Screen Urine Methadone Screen Ur Barbiturates Screen Ur Tricyclics Screen Ur Amphetamines Screen U Benzodiazepines Scrn Urine Cocaine Screen Ur THC Screen Ethyl Alcohol 155.8 H COVID-19 Source SARS-CoV-2 (PCR) Patient ABO/Rh Antibody Screen 02/19/22 02/19/22 02/19/22 21:45 21:55 22:52 WBC RBC Hgb Hct MCV MCH MCHC RDW Plt Count MPV Reticulocyte % (Auto) Immature Gran % Neutrophils % Lymphocytes % Monocytes % Eosinophils % Basophils % Nucleated RBC % Absolute Neutrophils Absolute Lymphocytes Absolute Monocytes Absolute Eosinophils Absolute Basophils PT 9.6 INR 1.0 APTT 24.1 Sodium Potassium Chloride Carbon Dioxide Anion Gap BUN Creatinine Estimated GFR/1.73 m2 Glucose Calcium Magnesium Iron TIBC Transferrin % Sat Total Bilirubin AST ALT Alkaline Phosphatase Creatine Kinase 195 Troponin I Total Protein Albumin TSH Urine Color Urine Clarity Urine pH Ur Specific [place] Urine Protein Urine Ketones Urine Blood Urine Nitrite Urine Bilirubin Urine Urobilinogen Ur Leukocyte Esterase Urine RBC Urine WBC Ur Epithelial Cells Urine Crystals Urine Bacteria Urine Casts Urine Mucus Ur Culture Indicated? Ur Random Sodium Urine Glucose Urine Opiates Screen Urine Methadone Screen Ur Barbiturates Screen Ur Tricyclics Screen Ur Amphetamines Screen U Benzodiazepines Scrn Urine Cocaine Screen Ur THC Screen Ethyl Alcohol COVID-19 Source Nasal/Nares SARS-CoV-2 (PCR) Negative Patient ABO/Rh Antibody Screen 02/19/22 02/19/22 02/20/22 23:20 23:20 01:03 WBC RBC Hgb Hct MCV MCH MCHC RDW Plt Count MPV Reticulocyte % (Auto) Immature Gran % Neutrophils % Lymphocytes % Monocytes % Eosinophils % Basophils % Nucleated RBC % Absolute Neutrophils Absolute Lymphocytes Absolute Monocytes Absolute Eosinophils Absolute Basophils PT INR APTT Sodium Potassium Chloride Carbon Dioxide Anion Gap BUN Creatinine Estimated GFR/1.73 m2 Glucose Calcium Magnesium Iron TIBC Transferrin % Sat Total Bilirubin AST ALT Alkaline Phosphatase Creatine Kinase Troponin I < 50 Total Protein Albumin TSH Urine Color Yellow Urine Clarity Clear Urine pH 5.5 Ur Specific [place] 1.025 Urine Protein >=300 H Urine Ketones Negative Urine Blood Moderate H Urine Nitrite Negative Urine Bilirubin Negative Urine Urobilinogen 0.2 Ur Leukocyte Esterase Negative Urine RBC 10-20 H Urine WBC 0-2 Ur Epithelial Cells Negative Urine Crystals Few Amorphous Urine Bacteria Few Urine Casts 3-5 Hyaline Urine Mucus Trace Ur Culture Indicated? No Ur Random Sodium Urine Glucose Negative Urine Opiates Screen Negative Urine Methadone Screen Negative Ur Barbiturates Screen Negative Ur Tricyclics Screen Negative Ur Amphetamines Screen Negative U Benzodiazepines Scrn Negative Urine Cocaine Screen Negative Ur THC Screen Negative Ethyl Alcohol COVID-19 Source SARS-CoV-2 (PCR) Patient ABO/Rh Antibody Screen 02/20/22 02/20/22 02/20/22 06:00 06:00 06:00 WBC 9.05 RBC 3.21 L Hgb 10.5 L Hct 29.9 L MCV 93.1 MCH 32.7 MCHC 35.1 RDW 12.3 Plt Count 167 MPV 9.1 Reticulocyte % (Auto) Immature Gran % Neutrophils % Lymphocytes % Monocytes % Eosinophils % Basophils % Nucleated RBC % Absolute Neutrophils Absolute Lymphocytes Absolute Monocytes Absolute Eosinophils Absolute Basophils PT INR APTT Sodium 119 L* Potassium 5.0 D Chloride 91 L Carbon Dioxide 20.8 L Anion Gap 7.2 BUN 16 Creatinine 0.8 Estimated GFR/1.73 m2 >= 60.00 Glucose 103 Calcium 7.6 L Magnesium Iron 55 L TIBC 219 L Transferrin % Sat 25 Total Bilirubin AST ALT Alkaline Phosphatase Creatine Kinase Troponin I Total Protein Albumin TSH Urine Color Urine Clarity Urine pH Ur Specific [place] Urine Protein Urine Ketones Urine Blood Urine Nitrite Urine Bilirubin Urine Urobilinogen Ur Leukocyte Esterase Urine RBC Urine WBC Ur Epithelial Cells Urine Crystals Urine Bacteria Urine Casts Urine Mucus Ur Culture Indicated? Ur Random Sodium Urine Glucose Urine Opiates Screen Urine Methadone Screen Ur Barbiturates Screen Ur Tricyclics Screen Ur Amphetamines Screen U Benzodiazepines Scrn Urine Cocaine Screen Ur THC Screen Ethyl Alcohol COVID-19 Source SARS-CoV-2 (PCR) Patient ABO/Rh Antibody Screen 02/20/22 02/20/22 02/20/22 06:00 06:05 06:05 WBC RBC Hgb Hct MCV MCH MCHC RDW Plt Count MPV Reticulocyte % (Auto) 1.9 Immature Gran % Neutrophils % Lymphocytes % Monocytes % Eosinophils % Basophils % Nucleated RBC % Absolute Neutrophils Absolute Lymphocytes Absolute Monocytes Absolute Eosinophils Absolute Basophils PT INR APTT Sodium Potassium Chloride Carbon Dioxide Anion Gap BUN Creatinine Estimated GFR/1.73 m2 Glucose Calcium Magnesium Iron TIBC Transferrin % Sat Total Bilirubin AST ALT Alkaline Phosphatase Creatine Kinase Troponin I Total Protein Albumin TSH Urine Color Yellow Urine Clarity Cloudy Urine pH 5.5 Ur Specific [place] 1.025 Urine Protein >=300 H Urine Ketones Trace H Urine Blood Large H Urine Nitrite Negative Urine Bilirubin Negative Urine Urobilinogen 0.2 Ur Leukocyte Esterase Negative Urine RBC >50 H Urine WBC Ur Epithelial Cells Urine Crystals Not Applicable Urine Bacteria Urine Casts Urine Mucus Not Applicable Ur Culture Indicated? Yes Ur Random Sodium 38 Urine Glucose Negative Urine Opiates Screen Urine Methadone Screen Ur Barbiturates Screen Ur Tricyclics Screen Ur Amphetamines Screen U Benzodiazepines Scrn Urine Cocaine Screen Ur THC Screen Ethyl Alcohol COVID-19 Source SARS-CoV-2 (PCR) Patient ABO/Rh Antibody Screen 02/20/22 02/20/22 09:00 11:00 WBC RBC Hgb Hct MCV MCH MCHC RDW Plt Count MPV Reticulocyte % (Auto) Immature Gran % Neutrophils % Lymphocytes % Monocytes % Eosinophils % Basophils % Nucleated RBC % Absolute Neutrophils Absolute Lymphocytes Absolute Monocytes Absolute Eosinophils Absolute Basophils PT INR APTT Sodium 120 L* Potassium 4.6 Chloride 90 L Carbon Dioxide 22.5 Anion Gap 7.5 BUN Creatinine Estimated GFR/1.73 m2 Glucose Calcium Magnesium Iron TIBC Transferrin % Sat Total Bilirubin AST ALT Alkaline Phosphatase Creatine Kinase Troponin I Total Protein Albumin TSH Urine Color Urine Clarity Urine pH Ur Specific [place] Urine Protein Urine Ketones Urine Blood Urine Nitrite Urine Bilirubin Urine Urobilinogen Ur Leukocyte Esterase Urine RBC Urine WBC Ur Epithelial Cells Urine Crystals Urine Bacteria Urine Casts Urine Mucus Ur Culture Indicated? Ur Random Sodium Urine Glucose Urine Opiates Screen Urine Methadone Screen Ur Barbiturates Screen Ur Tricyclics Screen Ur Amphetamines Screen U Benzodiazepines Scrn Urine Cocaine Screen Ur THC Screen Ethyl Alcohol COVID-19 Source SARS-CoV-2 (PCR) Patient ABO/Rh A Positive Antibody Screen NEGATIVE PAWSS Have you Been Recently Intoxicated or Drunk Within the Last 30 days?: Yes Have you Ever Experienced Previous Episodes of Alcohol Withdrawal?: No Have you ever Experienced Withdrawal Seizures?: No Have you ever Experienced Delirium Tremens(DT)s?: No Have you ever undergone Alcohol Rehabilitation Treatment (i.e, inpt ot outpatient treatment programs)?: No Have you ever Experienced Blackouts?: No Have you ever Combined Alcohol with other Downers within the last 90 days?: No Have you ever Combined Alcohol with any other Substance of Abuse during the last 90 days?: No Positive Blood Alcohol level on Presentation? [PCS.BAL]: No Evidence of Increased Autonomic Activity (i.e. HR>120, tremor, sweating, agitation, nausea)?: No Result: 1
[2022-02-20 12:05] LABS: PHOSPHORUS 3.7 mg/dL (2.6-4.7)
--- NOTE | 2022-02-20 12:31 | PDOC.ANES ---
Date of service: 02/20/22 Time of Service: 12:28 Anesthesia Note Report Anesthesia Note: Ketamine infusion started per policy and double checked with bedside RN. Patient provided education about its use and plan to reassess patient in 30 minutes - 1/hour and follow protocol accordingly. Patient reports that the ESPB helped some, but still discomft present, reports pain 8.5/10 when coughing.
[2022-02-20] MEDS: IRON SUCROSE COMPLEX 200 MG in Normal Saline 100 ML 400 MG IVPB (12:51)
[2022-02-20] MEDS: Multivitamin TAB 1 TAB PO (13:02)
[2022-02-20] MEDS: Pantoprazole 40 MG TABCR PO (13:02)
[2022-02-20] MEDS: SODIUM CHLORIDE 3% 500 ML 50 ML IV (13:10)
[2022-02-20] MEDS: Albuterol/Ipratropium 3 ML UPD VIAL UPD ×2 (13:26→18:12)
[2022-02-20] MEDS: Acetaminophen 500 MG TAB 1000 MG PO ×2 (13:54→22:20)
[2022-02-20 14:47] LABS: Anion Gap 5.4 mmol/L (3-11); CO2 23.6 mmol/L (21.0-32.0); Chloride 91 mmol/L (98-107); Potassium 4.5 mmol/L (3.5-5.1)
[2022-02-20 14:50] LABS: Sodium 120 mmol/L (136-145)
[2022-02-20] MEDS: Ferrous Sulfate 325 MG TAB PO (18:12)
[2022-02-20] MEDS: Lidocaine Patch Removal 1 EACH TD (18:13)
[2022-02-20 18:27] LABS: Osmolality, Urine 405 mOsm/kg (150-1,150)
[2022-02-20 19:30] LABS: CO2 20.6 mmol/L (21.0-32.0); Chloride 94 mmol/L (98-107); Potassium 4.4 mmol/L (3.5-5.1)
[2022-02-20 19:44] LABS: Anion Gap 8.4 mmol/L (3-11); Sodium 123 mmol/L (136-145)
[2022-02-20 22:11] LABS: Osmolality Serum 256 mOsm/kg (275-295)
[2022-02-20 22:38] LABS: Anion Gap 6.4 mmol/L (3-11); CO2 21.6 mmol/L (21.0-32.0); Chloride 97 mmol/L (98-107); Potassium 4.3 mmol/L (3.5-5.1); Sodium 125 mmol/L (136-145)
[2022-02-21] VITALS (90 sets, daily range): BP systolic 100–163; BP diastolic 53–90; PULSE 67–114; RESP 4–30; TEMP 36.5–37.6; O2SAT 79–95
[2022-02-21 03:30] LABS: Anion Gap 4.8 mmol/L (3-11); CO2 22.2 mmol/L (21.0-32.0); Chloride 99 mmol/L (98-107); Potassium 4.2 mmol/L (3.5-5.1); Sodium 126 mmol/L (136-145)
[2022-02-21] MEDS: Acetaminophen 500 MG TAB 1000 MG PO ×2 (06:21→13:47)
[2022-02-21 06:54] LABS: Abs Immature Grans 0.03 10^3/uL (0.0-0.06); Absolute Basophil Count 0.01 10^3/uL (0.0-0.2); Absolute Lymphocyte Count 0.65 10^3/uL (1.2-3.4); Absolute Monocyte Count 1.04 10^3/uL (0.1-0.8); Basophils % 0.1; HCT 28.2 % (40.0-50.0); HGB 9.9 g/dL (13.5-17.5); Immature Grans % 0.3; Lymphocytes % 5.9; MCH 33.4 pg (27.0-33.0); MCHC 35.1 % (32.0-36.0); MCV 95.3 fL (80-95); MPV 9.1 fL (8.0-11.0); Monocytes % 9.4; Neutrophils % 84.3; Platelet Count 142 10^3/uL (130-400); RBC 2.96 10^6/uL (4.36-5.78); RDW 12.8 % (11.8-14.1); RDW-SD 44.2 fL; WBC 11.06 10^3/uL (4.4-10.8)
[2022-02-21 06:58] LABS: Absolute Neutrophil Count 9.32 10^3/uL (1.2-6.7)
[2022-02-21 07:13] LABS: ALT 21 U/L (16-63); AST 28 U/L (15-37); Albumin 2.5 g/dL (3.4-5.0); Alkaline Phosphatase 97 U/L (46-116); Anion Gap 7.9 mmol/L (3-11); BUN 12 mg/dL (7-18); Bilirubin, Total 0.5 mg/dL (0.2-1.0); CO2 23.1 mmol/L (21.0-32.0); CREATININE 0.6 mg/dL (0.70-1.30); Calcium 7.8 mg/dL (8.5-10.1); Chloride 100 mmol/L (98-107); Glucose 136 mg/dL (74-106); Sodium 131 mmol/L (136-145); Total Protein 5.8 g/dL (6.4-8.2)
[2022-02-21] MEDS: Ferrous Sulfate 325 MG TAB PO ×2 (07:34→19:06)
[2022-02-21] MEDS: Thiamine 100 MG TAB PO (07:34)
[2022-02-21] MEDS: Multivitamin TAB 1 TAB PO (07:35)
[2022-02-21] MEDS: Gabapentin 100 MG CAP PO ×3 (07:35→19:06)
[2022-02-21] MEDS: Folic Acid 1 MG TAB PO (07:36)
[2022-02-21] MEDS: Pantoprazole 40 MG TABCR PO (07:36)
[2022-02-21] MEDS: Normal Saline Flush 10 ML SYR IVP (07:37)
[2022-02-21] MEDS: Lidocaine 5% Patch 1 PATCH TP (07:37)
[2022-02-21] MEDS: Enoxaparin 40 MG/0.4 ML SYR SC (07:37)
[2022-02-21] MEDS: Albuterol/Ipratropium 3 ML UPD VIAL UPD ×3 (08:15→19:06)
--- NOTE | 2022-02-21 08:53 | W.PULMCC ---
General Date of Service Date of service: 02/21/22 Time of Service: 07:50 Reason for Admission to ICU: hyponatremia, multi-trauma Assessment and Plan Assessment and plan (1) Multiple rib fractures: Status: Acute Qualifiers: Encounter type: initial encounter Fracture type: closed Laterality: left Qualified Code(s): S22.42XA - Multiple fractures of ribs, left side, initial encounter for closed fracture (2) Lumbar vertebral fracture: Status: Acute Qualifiers: Encounter type: initial encounter Fracture morphology: other fracture Fracture type: closed Lumbar vertebra fracture level: L4 Qualified Code(s): S32.048A - Other fracture of fourth lumbar vertebra, initial encounter for closed fracture (3) Pulmonary contusion: Status: Acute Qualifiers: Encounter type: initial encounter Laterality: left Qualified Code(s): S27.321A - Contusion of lung, unilateral, initial encounter (4) Bronchiectasis: Status: Acute Qualifiers: Bronchiectasis type: uncomplicated Qualified Code(s): J47.9 - Bronchiectasis, uncomplicated (5) Hypertension: Status: Chronic (6) Emphysema lung: Status: Acute Qualifiers: Emphysema type: centrilobular Qualified Code(s): J43.2 - Centrilobular emphysema (7) Hyponatremia: Status: Acute (8) Anemia: Status: Chronic Qualifiers: Anemia type: iron deficiency Iron deficiency anemia type: unspecified iron deficiency Qualified Code(s): D50.9 - Iron deficiency anemia, unspecified (9) Hematuria: Status: Acute Qualifiers: Hematuria type: asymptomatic microscopic Qualified Code(s): R31.21 - Asymptomatic microscopic hematuria (10) Iron deficiency: Status: Acute (11) Hypocalcemia: Status: Acute (12) Alcohol intoxication: Status: Acute Qualifiers: Complication of substance-induced condition: uncomplicated Qualified Code(s): F10.920 - Alcohol use, unspecified with intoxication, uncomplicated (13) Blunt trauma of multiple sites of trunk: Status: Acute (14) Blunt head trauma: Status: Acute Assessment and plan: This is a 71 yo man admitted to the ICU following a fall resulting in multiple location left sided #2-8 rib fractures, left clavicle fracture, L4-L5-S1 compression fracture and pulmonary contusions with hyponatremia. With regard to his trauma - he received 2 blocks and is on a low dose ketamine infusion. His tidal breathing is improving but will need continued IS and we will trial some Acapella care to see if he can tolerate this. He is a very high risk for developing pneumonia so ability to participate in airway clearance and appropriate tidal breathing is paramount. With regard to his hyponatremia, I started more aggressive management with a DDAVP clamp and hypertonic saline infusion after a one time bolus was not helpful. His sodium eva appropriately and he is now off of both hypertonic saline and desmopressin. I would still complete 2 more electrolyte checks and then they can be stopped and converted back to daily or bid draws. His hyponatremia studies have returned. His serum osmolality is low, with a high urine osmolality and indeterminant urine sodium. Again, interpreting these with caution as he had already received normal saline prior to these test. In my opinion the most likely explanation for his hyponatremia based on his history and these results are beer potomania in addition do taking a thiazide diuretic. Qualifiers: Encounter type: initial encounter Qualified Code(s): S09.8XXA - Other specified injuries of head, initial encounter Recommendations Pulmonary: Pulmonary Contusion - trial tolerance of Acapella - incentive spirometry - Duonebs tid - observation - no need for further imaging unless clinical change Multi-level rib fractures - anesthesia to attempt nerve block - recommend low dose ketamine infusion to start - repeat assessments for flail chest - high risk - already written for Tylenol, gabapentin - no need for further imaging unless clinical change Emphysema - Duoneb tid as above Hypoxic respiratory failure - pain control - IS and Acapella - Indapamide 2.5mg once Cardiac: h/o hypertension - agree with holding home meds for now Renal: Hyponatremia - s/p 1L NS - 50cc 3% saline one time - serum and urine osmalality & sodium consistent likely with beer potomania and thiazide use - TSH normal - random serum cortisol normal - electrolyte q4h until stable for 2 draws - fluid restriction to 1.5L - s/p 1 dose 2mcg DDAVP and 500cc total hypertonic saline - sodium now corrected to an appropriate level Hypocalcemia - continue to monitor Hematuria - CT negative - continue to monitor - CPK normal I&O: Intake & Output 02/18/22 02/19/22 02/20/22 02/21/22 23:59 23:59 23:59 23:59 Intake Total 1000 / 1000 2314.269 / 2314.269 200.378 / 200.378 Output Total 300 / 300 840 / 840 200 / 200 Balance 700 / 700 1474.269 / 1474.269 0.378 / 0.378 Weight 72.7 kg 73.2 kg 80.3 kg Daily Fluid Goal:: even to slightly negative GI Nutrition: Nutrition - regular diet with 1.5L fluid restriction Date of Last Bowel Movement: 02/19/22 Infectious Disease: - pending sputum culture - low threshold to cover with doxy or azithro Hematologic: Iron deficiency anemia - s/p one dose IV iron - now on PO iron Neurologic: Alcohol intoxication - CIWA zero, continue to monitor - s/p banana bag - recommend PO MVI, thiamine and folate Fall resulting in multi-trauma - unknown circumstances - will defer secondary and tertiary assessments to surgical team who is consulted Endocrine: No acute concerns Lines: PICC Prophylaxis: No indication for GI ppx Starting Lovenox today Code Status: Resuscitation Status Full Code Subjective Critical and life-threatening events over the past 24 hours: Barry is doing well today. His pain is much better control after having the blocks and being on ketamine. His pain is around a 2-3/10. He is not having any withdrawal signs or symptoms. He still is coughing productive sputum - a sample was sent to the lab and stained for gram negative rods and gram positive diplococci, we are awaiting the final culture results. He is on oxygen via a mask because he is a mouth breather. He is incontinent so I/O's are challenging but by what is in the chart he is over 2L positive. Exam Narrative Exam Narrative: Gen: NAD, normal respiratory effort, well-nourished, bruising, abrasions and lacerations on face/arms HENT: PERRL, moist oral mucosa, Mallampati 2, No LAD or JVD Chest: No respiratory distress, normal appearance of chest - no flail chest currently. Improving tidal breahting. Rhonchi/crackles throughout bilaterally. Heart: regular rate and rhythym, no murmurs, rubs or gallops Abdomen: Non-distended, soft, non tender Extremities: No clubbing, edema, cyanosis, rashes Neuro: AAOx3 , non focal Psych: cooperative, appropriate mental affect Most Recent VS/Results Last Vital Signs Temp 36.6 C 04/20/22 04:00 Pulse 86 02/21/22 06:25 Resp 16 02/21/22 08:15 BP 136/64 02/21/22 06:25 Pulse Ox 92 02/21/22 08:16 Laboratory Results - last 24 hr 02/20/22 02/20/22 02/20/22 06:05 06:05 09:00 WBC RBC Hgb Hct MCV MCH MCHC RDW Plt Count MPV Immature Gran % Neutrophils % Lymphocytes % Monocytes % Eosinophils % Basophils % Nucleated RBC % Absolute Neutrophils Absolute Lymphocytes Absolute Monocytes Absolute Eosinophils Absolute Basophils Sodium Potassium Chloride Carbon Dioxide Anion Gap BUN Creatinine Estimated GFR/1.73 m2 Glucose Serum Osmolality Calcium Phosphorus Total Bilirubin AST ALT Alkaline Phosphatase Total Protein Albumin Cortisol Urine Osmolality 405 Ur Random Sodium 38 Patient ABO/Rh A Positive Antibody Screen NEGATIVE 02/20/22 02/20/22 02/20/22 11:00 11:00 11:00 WBC RBC Hgb Hct MCV MCH MCHC RDW Plt Count MPV Immature Gran % Neutrophils % Lymphocytes % Monocytes % Eosinophils % Basophils % Nucleated RBC % Absolute Neutrophils Absolute Lymphocytes Absolute Monocytes Absolute Eosinophils Absolute Basophils Sodium 120 L* Potassium 4.6 Chloride 90 L Carbon Dioxide 22.5 Anion Gap 7.5 BUN Creatinine Estimated GFR/1.73 m2 Glucose Serum Osmolality 256 L Calcium Phosphorus Total Bilirubin AST ALT Alkaline Phosphatase Total Protein Albumin Cortisol 28 Urine Osmolality Ur Random Sodium Patient ABO/Rh Antibody Screen 02/20/22 02/20/22 02/20/22 11:00 14:00 14:20 WBC RBC Hgb Hct MCV MCH MCHC RDW Plt Count MPV Immature Gran % Neutrophils % Lymphocytes % Monocytes % Eosinophils % Basophils % Nucleated RBC % Absolute Neutrophils Absolute Lymphocytes Absolute Monocytes Absolute Eosinophils Absolute Basophils Sodium Cancelled 120 L* Potassium Cancelled 4.5 Chloride Cancelled 91 L Carbon Dioxide Cancelled 23.6 Anion Gap Cancelled 5.4 BUN Creatinine Estimated GFR/1.73 m2 Glucose Serum Osmolality Calcium Phosphorus 3.7 Total Bilirubin AST ALT Alkaline Phosphatase Total Protein Albumin Cortisol Urine Osmolality Ur Random Sodium Patient ABO/Rh Antibody Screen 02/20/22 02/20/22 02/21/22 19:00 22:00 03:00 WBC RBC Hgb Hct MCV MCH MCHC RDW Plt Count MPV Immature Gran % Neutrophils % Lymphocytes % Monocytes % Eosinophils % Basophils % Nucleated RBC % Absolute Neutrophils Absolute Lymphocytes Absolute Monocytes Absolute Eosinophils Absolute Basophils Sodium 123 L* 125 L 126 L Potassium 4.4 4.3 4.2 Chloride 94 L 97 L 99 Carbon Dioxide 20.6 L 21.6 22.2 Anion Gap 8.4 6.4 4.8 BUN Creatinine Estimated GFR/1.73 m2 Glucose Serum Osmolality Calcium Phosphorus Total Bilirubin AST ALT Alkaline Phosphatase Total Protein Albumin Cortisol Urine Osmolality Ur Random Sodium Patient ABO/Rh Antibody Screen 02/21/22 02/21/22 02/21/22 06:00 06:08 06:08 WBC 11.06 H RBC 2.96 L Hgb 9.9 L Hct 28.2 L MCV 95.3 H MCH 33.4 H MCHC 35.1 RDW 12.8 Plt Count 142 MPV 9.1 Immature Gran % 0.3 Neutrophils % 84.3 Lymphocytes % 5.9 Monocytes % 9.4 Eosinophils % 0.0 Basophils % 0.1 Nucleated RBC % 0.0 Absolute Neutrophils 9.32 H Absolute Lymphocytes 0.65 L Absolute Monocytes 1.04 H Absolute Eosinophils 0.00 Absolute Basophils 0.01 Sodium Cancelled 131 L Potassium Cancelled 4.0 Chloride Cancelled 100 Carbon Dioxide Cancelled 23.1 Anion Gap Cancelled 7.9 BUN 12 Creatinine 0.6 L Estimated GFR/1.73 m2 >= 60.00 Glucose 136 H Serum Osmolality Calcium 7.8 L Phosphorus Total Bilirubin 0.5 AST 28 ALT 21 Alkaline Phosphatase 97 Total Protein 5.8 L Albumin 2.5 L Cortisol Urine Osmolality Ur Random Sodium Patient ABO/Rh Antibody Screen Review of Systems All systems reviewed & are unremarkable except as noted in HPI and below Time spent with patient Time spent in Critical Care: 45 Time spent in Critical care included: Coordination of care, Chart review, Documenting critically ill care, Time at immediate bedside and Discussing critically ill care with other medical staff Multi-Disciplinary Checklist Lines/Tubes CENTRAL LINE: yes, Central Line Day#: 1 Note: PICC ARTERIAL LINE: no MOROCHO: no ENDOTRACHEAL TUBE: no ICU Maintenance GLUCOSE 140-180mg/dL: yes NUTRITION AT GOAL: yes PRESSURE ULCER: no RESTRAINTS: no ANTIBIOTICS(if yes, consider Stewardship): No Social Issues FAMILY UPDATED: yes PT/OT: no, Reason/Intervention: will reassess once pain control for fractures stable GOALS/DISPOSITION/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
--- NOTE | 2022-02-21 10:16 | W.PM.PROGNOT ---
Date of Service Date of service: 02/21/22 Time of Service: 10:16 Assessment and Plan Assessment and plan (1) Fall: Status: Acute Assessment and plan: Unclear as to how he fell on the floor. He does not have any recollection as to what led up to him being found on the floor by his room mate. rhythm has remained sinus to sinus tachy w/ occasional PVC's, nothing to explain syncope. CT of head was negative. We are assuming he had an alcoholic blackout. CC time spent evaluating the patient, reviewing studies, discussion w/ nursing and Dr. Sanchez and putting in orders, 30 minutes (2) Alcohol intoxication: Status: Acute Assessment and plan: Blood alcohol level was 155 on admission. He is being monitored on [facility] protocol to watch for alcohol withdrawal. Score has been 2 this morning. Highest has been 6 last night. Patient was given thiamine and folic acid and multivitamins via banana bag on admission and now is on oral supplements. He denies a hx of alcohol withdrawal. I discussed with Dr. Sanchez, giving phenobarbital prophylaxis low dose to him however she recommends waiting until he scores high enough to require this. His LFT's are normal therefore I think he would tolerate phenobarb well. He is currently on ketamine drip for pain control which may provide some prophylaxis from withdrawal Qualifiers: Complication of substance-induced condition: uncomplicated Qualified Code(s): F10.920 - Alcohol use, unspecified with intoxication, uncomplicated (3) Multiple rib fractures: Status: Acute Assessment and plan: Status post nerve block left erector spinae. Patient doing well on ketamine Qualifiers: Encounter type: initial encounter Fracture type: closed Laterality: left Qualified Code(s): S22.42XA - Multiple fractures of ribs, left side, initial encounter for closed fracture (4) Lumbar vertebral fracture: Status: Acute Assessment and plan: Pain control as above. We will check his vitamin D levels and start him on calcium supplements and vitamin D supplement as needed. Qualifiers: Encounter type: initial encounter Lumbar vertebra fracture level: L4 Fracture type: closed Fracture morphology: other fracture Qualified Code(s): S32.048A - Other fracture of fourth lumbar vertebra, initial encounter for closed fracture (5) Blunt head trauma: Status: Acute Assessment and plan: Noncontrast CT scan of the head and cervical spine was negative for intracranial abnormalities and no skull fracture and no cervical spinal trauma Qualifiers: Encounter type: initial encounter Qualified Code(s): S09.8XXA - Other specified injuries of head, initial encounter (6) Blunt trauma of multiple sites of trunk: Status: Acute Assessment and plan: Multiple contusions and ecchymosis to the left chest and shoulder and to his face. He sustained multiple rib fractures which are being treated as noted above. (7) Pulmonary contusion: Status: Acute Assessment and plan: Pulmonary contusion secondary to trauma. He is at increased risk for flail chest. Pain control per anesthesia. Encourage patient to cough and deep breathe and use incentive spirometer. He is at high risk for developing pneumonia. patient now on scheduled bronchodilators (DuoNeb tid) Qualifiers: Encounter type: initial encounter Laterality: left Qualified Code(s): S27.321A - Contusion of lung, unilateral, initial encounter (8) Hematuria: Status: Acute Assessment and plan: Possible secondary to Schrader trauma. Resolving. Qualifiers: Hematuria type: asymptomatic microscopic Qualified Code(s): R31.21 - Asymptomatic microscopic hematuria (9) Iron deficiency: Status: Acute Assessment and plan: Patient was given parenteral iron per surgical service. However I think patient could try to take oral iron. (10) Hypertension: Status: Chronic Assessment and plan: Holding antihypertensives in the setting of recent fall. Monitor blood pressure for now. (11) Hyponatremia: Status: Acute Assessment and plan: Hyponatremia is probably secondary to beer potomania nevertheless serum osmolality has been sent off. Patient had minimal response to normal saline infusion. Dr. Sanchez has treated this w/ combination of 3% saline to raise his sodium while giving DDAVP to prevent renal diuresis and over correction of his sodium. Sodium came up to 130 this morning from 119 on admission (rise of 12 meq over 24 hr; i.e. 0.5 meq/hr which is appropriate rate of correction.. (12) Bronchiectasis: Status: Acute Assessment and plan: encourage cough and deep breathing along w/ use of IS and acapella and scheduled bronchodilators. If he is producing any sputum will get culture as he is a set up for pneumonia w/ his underlying lung disease and rib fractures Qualifiers: Bronchiectasis type: uncomplicated Qualified Code(s): J47.9 - Bronchiectasis, uncomplicated (13) Emphysema lung: Status: Acute Assessment and plan: supplemental oxygen as needed to keep SPO2 over 90% and pulmonary toiletery and bronchodilators as noted above Qualifiers: Emphysema type: centrilobular Qualified Code(s): J43.2 - Centrilobular emphysema (14) Anemia: Status: Chronic Assessment and plan: put on PPI for GI protection and treat iron deficiency w/ oral supplements Qualifiers: Anemia type: iron deficiency Iron deficiency anemia type: unspecified iron deficiency Qualified Code(s): D50.9 - Iron deficiency anemia, unspecified (15) Hypocalcemia: Status: Acute Assessment and plan: calcium is 7.6 however when corrected for his low albumin his calcium is actually 8.4 (16) DVT prophylaxis: Status: Acute Assessment and plan: I held off starting enoxaparin yesterday d/t multiple rib fractures; lung contusion and the need for nerve injections. However he has been started now on enoxaparin Subjective Subjective Interval history since last seen: Patient says that his left sided chest wall pain from his rib fractures is better. He is currently on ketamine drip. He denies any dyspnea but has moist cough, minimally productive. He has an IS and acapella. he says that he is voiding ok but has not had a BM yet. Exam Narrative Exam Narrative: Patient seems to be alert and oriented he is sitting up watching TV in no acute distress. Chest wall with bruising over his left lateral clavicle and left chest wall Lungs: coarse bilateral diffuse rhonchi and wheezing Heart: regular but tachycardic Abdomen: soft, nondistended, normal bowel sounds Objective Last Vital Signs Temp 36.6 C 02/21/22 04:00 Pulse 86 02/21/22 06:25 Resp 16 02/21/22 08:15 BP 136/64 02/21/22 06:25 Pulse Ox 92 02/21/22 08:16 Laboratory Results - last 24 hr 02/20/22 02/20/22 02/20/22 06:05 06:05 11:00 WBC RBC Hgb Hct MCV MCH MCHC RDW Plt Count MPV Immature Gran % Neutrophils % Lymphocytes % Monocytes % Eosinophils % Basophils % Nucleated RBC % Absolute Neutrophils Absolute Lymphocytes Absolute Monocytes Absolute Eosinophils Absolute Basophils Sodium Potassium Chloride Carbon Dioxide Anion Gap BUN Creatinine Estimated GFR/1.73 m2 Glucose Serum Osmolality 256 L Calcium Phosphorus Total Bilirubin AST ALT Alkaline Phosphatase Total Protein Albumin Cortisol Urine Osmolality 405 Ur Random Sodium 38 02/20/22 02/20/22 02/20/22 11:00 11:00 11:00 WBC RBC Hgb Hct MCV MCH MCHC RDW Plt Count MPV Immature Gran % Neutrophils % Lymphocytes % Monocytes % Eosinophils % Basophils % Nucleated RBC % Absolute Neutrophils Absolute Lymphocytes Absolute Monocytes Absolute Eosinophils Absolute Basophils Sodium 120 L* Potassium 4.6 Chloride 90 L Carbon Dioxide 22.5 Anion Gap 7.5 BUN Creatinine Estimated GFR/1.73 m2 Glucose Serum Osmolality Calcium Phosphorus 3.7 Total Bilirubin AST ALT Alkaline Phosphatase Total Protein Albumin Cortisol 28 Urine Osmolality Ur Random Sodium 02/20/22 02/20/22 02/20/22 14:00 14:20 19:00 WBC RBC Hgb Hct MCV MCH MCHC RDW Plt Count MPV Immature Gran % Neutrophils % Lymphocytes % Monocytes % Eosinophils % Basophils % Nucleated RBC % Absolute Neutrophils Absolute Lymphocytes Absolute Monocytes Absolute Eosinophils Absolute Basophils Sodium Cancelled 120 L* 123 L* Potassium Cancelled 4.5 4.4 Chloride Cancelled 91 L 94 L Carbon Dioxide Cancelled 23.6 20.6 L Anion Gap Cancelled 5.4 8.4 BUN Creatinine Estimated GFR/1.73 m2 Glucose Serum Osmolality Calcium Phosphorus Total Bilirubin AST ALT Alkaline Phosphatase Total Protein Albumin Cortisol Urine Osmolality Ur Random Sodium 02/20/22 02/21/22 02/21/22 22:00 03:00 06:00 WBC RBC Hgb Hct MCV MCH MCHC RDW Plt Count MPV Immature Gran % Neutrophils % Lymphocytes % Monocytes % Eosinophils % Basophils % Nucleated RBC % Absolute Neutrophils Absolute Lymphocytes Absolute Monocytes Absolute Eosinophils Absolute Basophils Sodium 125 L 126 L Cancelled Potassium 4.3 4.2 Cancelled Chloride 97 L 99 Cancelled Carbon Dioxide 21.6 22.2 Cancelled Anion Gap 6.4 4.8 Cancelled BUN Creatinine Estimated GFR/1.73 m2 Glucose Serum Osmolality Calcium Phosphorus Total Bilirubin AST ALT Alkaline Phosphatase Total Protein Albumin Cortisol Urine Osmolality Ur Random Sodium 02/21/22 02/21/22 06:08 06:08 WBC 11.06 H RBC 2.96 L Hgb 9.9 L Hct 28.2 L MCV 95.3 H MCH 33.4 H MCHC 35.1 RDW 12.8 Plt Count 142 MPV 9.1 Immature Gran % 0.3 Neutrophils % 84.3 Lymphocytes % 5.9 Monocytes % 9.4 Eosinophils % 0.0 Basophils % 0.1 Nucleated RBC % 0.0 Absolute Neutrophils 9.32 H Absolute Lymphocytes 0.65 L Absolute Monocytes 1.04 H Absolute Eosinophils 0.00 Absolute Basophils 0.01 Sodium 131 L Potassium 4.0 Chloride 100 Carbon Dioxide 23.1 Anion Gap 7.9 BUN 12 Creatinine 0.6 L Estimated GFR/1.73 m2 >= 60.00 Glucose 136 H Serum Osmolality Calcium 7.8 L Phosphorus Total Bilirubin 0.5 AST 28 ALT 21 Alkaline Phosphatase 97 Total Protein 5.8 L Albumin 2.5 L Cortisol Urine Osmolality Ur Random Sodium Reviewed Pertinent PMH: Yes PAWSS Have you Been Recently Intoxicated or Drunk Within the Last 30 days?: Yes Have you Ever Experienced Previous Episodes of Alcohol Withdrawal?: No Have you ever Experienced Withdrawal Seizures?: No Have you ever Experienced Delirium Tremens(DT)s?: No Have you ever undergone Alcohol Rehabilitation Treatment (i.e, inpt ot outpatient treatment programs)?: No Have you ever Experienced Blackouts?: No Have you ever Combined Alcohol with other Downers within the last 90 days?: No Have you ever Combined Alcohol with any other Substance of Abuse during the last 90 days?: No Positive Blood Alcohol level on Presentation? [PCS.BAL]: No Evidence of Increased Autonomic Activity (i.e. HR>120, tremor, sweating, agitation, nausea)?: No Result: 1
--- NOTE | 2022-02-21 10:49 | CMPROGNOTE_ITS ---
- If Service Date Differs Date of service: 02/21/22 Time of Service: 10:49 Care Management Progress Note S/O: Barry was sitting up in bed when CM met with him. He stated that his pain is much more controlled today, and he is feeling better. Per report, he is on a ketamine drip. He is being encouraged to use an IS and acapella, and denies dyspnea. Barry stated that he has been in contact with family/friends, providing an update. He stated that he plans to return home once he is medically cleared. is monitoring for withdrawal from alcohol. CM will continue to follow. A: Barry is a 71 year old male admitted to [facility] on 02/20/22 with multitrauma. P: Anticipate Barry will return home once medically cleared. He will likely transport via private vehicle by a friend or family. He will be evaluated to determine if further services are indicated at home. He will follow up with his PCP and discharge plan of care. CM will continue to follow.
[2022-02-21 11:11] LABS: Anion Gap 5.3 mmol/L (3-11); CO2 23.7 mmol/L (21.0-32.0); Chloride 98 mmol/L (98-107); Potassium 3.7 mmol/L (3.5-5.1); Sodium 127 mmol/L (136-145)
[2022-02-21] MEDS: Lidocaine Patch Removal 1 EACH TD (19:06)
[2022-02-22] VITALS (87 sets, daily range): BP systolic 121–170; BP diastolic 53–125; PULSE 79–114; RESP 4–30; TEMP 36.8–37.3; O2SAT 85–96
[2022-02-22 05:14] LABS: Abs Immature Grans 0.02 10^3/uL (0.0-0.06); Absolute Basophil Count 0.02 10^3/uL (0.0-0.2); Absolute Lymphocyte Count 1.06 10^3/uL (1.2-3.4); Absolute Monocyte Count 0.83 10^3/uL (0.1-0.8); Basophils % 0.2; HCT 29.2 % (40.0-50.0); Immature Grans % 0.2; Lymphocytes % 12.1; MCH 32.8 pg (27.0-33.0); MCHC 34.2 % (32.0-36.0); MCV 95.7 fL (80-95); MPV 9.5 fL (8.0-11.0); Monocytes % 9.5; Platelet Count 143 10^3/uL (130-400); RBC 3.05 10^6/uL (4.36-5.78); RDW 13.1 % (11.8-14.1); WBC 8.73 10^3/uL (4.4-10.8)
[2022-02-22 05:24] LABS: Anion Gap 5.2 mmol/L (3-11); BUN 11 mg/dL (7-18); CO2 25.8 mmol/L (21.0-32.0); CREATININE 0.8 mg/dL (0.70-1.30); Calcium 8.1 mg/dL (8.5-10.1); Chloride 99 mmol/L (98-107); Glucose 120 mg/dL (74-106); Potassium 3.5 mmol/L (3.5-5.1); Sodium 130 mmol/L (136-145)
[2022-02-22] MEDS: Acetaminophen 500 MG TAB 1000 MG PO ×2 (05:31→13:09)
[2022-02-22] MEDS: Albuterol/Ipratropium 3 ML UPD VIAL UPD ×3 (07:54→19:31)
--- NOTE | 2022-02-22 08:35 | IN_ITS ---
Date of service: 02/22/22 Time of Service: 08:35 PT Notes Visit Reasons: Multitrauma Physical Therapy Inpatient Initial Evaluation Date: 02/22/2022 Referring Doctor: Juju Rodriguez MD PT Orders: PT CONSULT: Limited ability Precautions: Fall. Standard. Activity as tolerated. Patient Profile/Admitting Diagnosis: Barry is a 71-year-old male who presented to the ED on 02/20/2022 due to a fall that resulted to multiple rib fractures, lumbar vertebra fracture, and blunt head trauma. Patient is diagnosed, EtOH intoxication, L4-L5 vertebral body left hip trauma, ribs 2?8 fractures, bronchiectasis, L5 compression fracture, pulmonary contusion, iron deficiency anemia, hypertension, hyponatremia, emphysema of lung, hypocalcemia. PMHX: All Active Problems? Fall (Acute) Blunt trauma of multiple sites of trunk (Acute) Blunt head trauma (Acute) Hyponatremia (Acute) Multiple rib fractures (Acute) Lumbar vertebral fracture (Acute) Social History/Home Situation: Lives with a roommate but roommate will be unable to provide help for him when he goes home. Independent with all aspects of ADLs prior to admission. Equipment Owned/DME: None SUBJECTIVE: Agreeable to PT consult. Reports pain and fatigue all over. Feels weak. Nurse Leyla asked if assistance from PT is possible with transferring from bed to stretcher for patient's x-ray downstairs this morning. OBJECTIVE: General Observation: Frail-looking. Supine in bed. Oxygen saturation at 3L/min via NC. Telemonitor in place. Schrader catheter in place. Mental Status: Alert and oriented as to person, place, time, and purpose. Pain: Moderate pain in trunk due to multiple fractures Vital Signs: Within normal limits as monitored through tele ROM: Right Upper Extremity: Shoulder Flexion lacks the last 25% of AROM. Shoulder abduction WFL lacks the last 25% of AROM. Elbow flexion WFL. Wrist flexion WFL. Functional opening and closing of hand WFL. Left Upper Extremity: Shoulder Flexion lacks the last 25% of AROM. Shoulder abduction WFL lacks the last 25% of AROM. Elbow flexion WFL. Wrist flexion WFL. Functional opening and closing of hand WFL. Right Lower Extremity: Hip flexion lacks the last 25% of AROM while seated at edge of bed. Hip abduction WFL. Knee flexion 20 degrees to 100 degrees. Knee extension -20 degrees. Ankle dorsiflexion to neutral only.. Ankle plantarflexion WFL. Left Lower Extremity: Hip flexion lacks the last 25% of AROM while seated at edge of bed. Hip abduction WFL. Knee flexion 20 degrees to 100 degrees. Knee extension -20 degrees. Ankle dorsiflexion to neutral only.. Ankle plantarflexion WFL. Strength: Right Upper Extremity: Shoulder flexors 3-/5. Shoulder abductors 3-/5. Elbow flexors 4-/5. Elbow extensors 4-/5. Half Backer strong. Left Upper Extremity: Shoulder flexors 3-/5. Shoulder abductors 3-/5. Elbow flexors 4-/5. Elbow extensors 4-/5. Half Backer strong. Right Lower Extremity: Hip flexors 3-/5. Hip abductors 3-/5. Knee flexors 3-/5. Knee extensors 3-/5. Ankle dorsiflexors 3-/5. Ankle plantarflexors 4-/5. Left Lower Extremity: Hip flexors 3-/5. Hip abductors 3-/5. Knee flexors 3-/5. Knee extensors 3-/5. Ankle dorsiflexors 3-/5. Ankle plantarflexors 4-/5. Bed Mobility/Transfers: Supine to sit with minimal assist of 2 Sit to supine on stretcher contact guard assist of 2 Sit to stand minimal assist of 2 Stand to sit onto stretcher stand by assist of 2 Gait: Instructed patient with level surface ambulation of 5 steps + 15 feet requiring minimal assist. Michelle decreased. Step height decreased. Step length decreased. Gait minimally unstable/ataxic. Balance: Static Sitting: Good Dynamic Sitting: Fair Static Standing: Fair Dynamic Standing: Fair Special Tests: Mobility Limitations Standardized Measure [facility] AM-PAC 6 clicks Basic Mobility Inpatient Short Form: Raw Score: 18 CMS Score: 47% deficit Informed Consent/Education: Patient was instructed in purpose of PT consult and plan of care. Agreeable to proceed with established PT POC to achieve personal goals. ASSESSMENT: All end range movements caused moderate pain in patient which, along with generalized weakness and fatigue, provided moderate difficulty with transfers and weight bearing. Cognition intact, patient was able to follow instructions however responses were a bit slow. Decline in transfers, ambulation, activity tolerance, and balance evident. Patient presents with clinical signs and symptoms consistent with current/admitting diagnoses that have resulted to mobility limitations, gait instability, generalized weakness, and overall ADL decline as demonstrated by the following impairment level findings: 1. Decreased strength to B UE/LE major muscle groups 2. Impaired sitting/standing balance 3. Impaired activity tolerance 4. Limitation of joint range of motion in B shoulders 5. Shortness of breath 6. Fatigue Impairments are contributing to the following functional limitations: 1. Decline in bed mobility skills 2. Decline in transfer skills 3. Difficulty with ambulation without assistive device and physical assistance 4. Increased completion time for mobility ADL performance 5. Increased risk for falls 6. Difficulty with managing steps alone safely Patient is assessed as a 36821 moderate complexity based on the following: History: 71-year-old male with past medical history as indicated above Examination: Demonstrable impairment in strength, balance, and mobility level with underlying impairments and functional limitations as exhibited above as well as deficit score of 47% utilizing the [facility] Mobility Inpatient Short Form Presentation: Evolving Decision Makin moderate complexity Goals: Goals X1 week 1. Supine-Sit independent 2. Sit-Supine independent 3. Sit-Stand independent 4. Stand-Sit independent with FWW 5. Bed-Chair independent with FWW 6. Chair-Bed independent with FWW 7. Independent gait on level surface with use of FWW for at least 300 feet without report of pain nor dyspnea 8. Independent stair negotiation while holding onto B rails for at least 5 steps without report of pain nor dyspnea 9. Independent with home exercise program 10. Good static and dynamic standing balance/tolerance Plan of Care/Treatment Plan: 1-2x/day, 7 days/week x 1 week. Plan of care has been reviewed with the RAIMANN MACHINE OPERATOR providing the service under Physical Therapy direction. Initiate Physical Therapy intervention for pain management as needed, strengthening, bed mobility, transfers, gait, stairs, balance training, and use of assistive device. DISCHARGE RECOMMENDATIONS: [] Home with no services [] [X] Home with services. Home when medically cleared by hospitalist. Patient will benefit from home health PT services in order to progress mobility level using least restrictive assistive ambulatory device, assess home safety, identify additional equipment needs, and establish a functional maintenance program that will increase ability of patient to remain at home. [] Home with outpatient PT [] [] SNF for continued rehabilitation [] [] Hospital Nurse Care [] [] SNF versus LTC based on ability to participate and progress [] TREATMENT CODE/TIME: 01952 x 20 minutes, 61783 x 13 minutes. Thank you for the opportunity to participate in the care of this patient. Sylvia Julien PT, DPT, CLT [facility] [place], [place]
--- NOTE | 2022-02-22 08:47 | W.PM.PROGNOT ---
Date of Service Date of service: 02/22/22 Time of Service: 08:47 Assessment and Plan Assessment and plan (1) Acute respiratory failure with hypoxia: Status: Acute Assessment and plan: Multifactorial, suspect due to pulmonary contusions, atelectasis/pain of rib fractures, splinting, COPD exacerbation, bronchiectasis, possible superimposed PNA and CHF. Await procalcitonin, proBNP. Add prn nebs, prednisone. Encourage pulmonary toilet. Wean O2 as tolerated. COVID negative on admission. (2) Multiple rib fractures: Status: Acute Assessment and plan: Continue pain control (ketamine gtt - anasthesia is following). Encourage pulmonary toiletting. Status post nerve block left erector spinae. Consider addition of NSAIDs (has a h/o iron deficiency anemia). Qualifiers: Encounter type: initial encounter Fracture type: closed Laterality: left Qualified Code(s): S22.42XA - Multiple fractures of ribs, left side, initial encounter for closed fracture (3) Fall: Status: Acute Assessment and plan: Unwitnessed fall, ?syncope vs alcoholic blackout. Continue cardiac monitoring. (4) Alcohol intoxication: Status: Acute Assessment and plan: No evidence of EtOH w/d at this time. Continue thiammine, MVI. He is on ketamine gtt. Qualifiers: Complication of substance-induced condition: uncomplicated Qualified Code(s): F10.920 - Alcohol use, unspecified with intoxication, uncomplicated (5) Lumbar vertebral fracture: Status: Acute Assessment and plan: As above. Vitamin D level pending. PT. Qualifiers: Encounter type: initial encounter Lumbar vertebra fracture level: L4 Fracture type: closed Fracture morphology: other fracture Qualified Code(s): S32.048A - Other fracture of fourth lumbar vertebra, initial encounter for closed fracture (6) Blunt head trauma: Status: Acute Assessment and plan: CT head negative. Monitor for post-concussive symptoms. Qualifiers: Encounter type: initial encounter Qualified Code(s): S09.8XXA - Other specified injuries of head, initial encounter (7) Blunt trauma of multiple sites of trunk: Status: Acute Assessment and plan: Resulting in multiple rib fractures and ecchymosis, treated as above. (8) Pulmonary contusion: Status: Acute Assessment and plan: Likely contributing to the hypoxia. As above. At increased risk for flail chest. Pain control per anesthesia. Encourage pulmonary toiletting. Awaiting procalcitonin to make a decision re abx. Qualifiers: Encounter type: initial encounter Laterality: left Qualified Code(s): S27.321A - Contusion of lung, unilateral, initial encounter (9) Hematuria: Status: Acute Assessment and plan: Possible secondary to Schrader trauma. Resolving. Holding on NSAIDs at this time. Qualifiers: Hematuria type: asymptomatic microscopic Qualified Code(s): R31.21 - Asymptomatic microscopic hematuria (10) Iron deficiency: Status: Acute Assessment and plan: Continue oral iron. (11) Hypertension: Status: Chronic Assessment and plan: Add amlodipine 5 mg PO daily (12) Hyponatremia: Status: Acute Assessment and plan: Improved, agree that it is likely due to beer potomania, s/p combo of hypertonic saline and DDAVP. Remains stable. Continue to monitor. (13) Bronchiectasis: Status: Acute Assessment and plan: As above - continue scheduled nebs, add prn meds. I added prednisone given respiratory exam today and oxygen requirement. Abx decision pending procalcitonin. Qualifiers: Bronchiectasis type: uncomplicated Qualified Code(s): J47.9 - Bronchiectasis, uncomplicated (14) Emphysema lung: Status: Acute Assessment and plan: Continue supplemental oxygen as needed to keep SPO2 over 90% and pulmonary toileting. Assessing increased o2 requirement - procalcitonin, proBNP pending. CXR with Bilateral pulmonary infiltrates, nonspecific. Qualifiers: Emphysema type: centrilobular Qualified Code(s): J43.2 - Centrilobular emphysema (15) Anemia: Status: Chronic Assessment and plan: Continue iron supplementation. Qualifiers: Anemia type: iron deficiency Iron deficiency anemia type: unspecified iron deficiency Qualified Code(s): D50.9 - Iron deficiency anemia, unspecified (16) Hypocalcemia: Status: Ruled-out Assessment and plan: Calcium is corrected to 9.3 when accounting for his albumin. (17) DVT prophylaxis: Status: Acute Assessment and plan: SC lovenox (18) Discharge planning issues: Status: Acute Assessment and plan: Full code Continues to require hospitalization. Keep in ICU. Subjective Subjective Interval history since last seen: C/o back pain. Denies dizziness, chest pain, shortness of breath, nausea. Was on 9-10 L of oxymask last night saturating in high 90s. Transitioned to 5L of O2 by oxymask this morning, saturating 96%. RT notes that the patient sounds junky. Remains on ketamine gtt. Exam Narrative Exam Narrative: General: Pleasant mildly tremulous and tachypneic male, A&Ox3 HEENT: EOMI, MMM Heart: RRR, hard to auscultate for murmurs due to impressive rhonchi B Lungs: B expiratory rales and rhonchi Abdomen: soft, nontender, nondistended Extremities: no edema BLEs, +1 pedal pulses B Objective Last Vital Signs Temp 37.0 C 02/22/22 04:00 Pulse 90 02/22/22 07:55 Resp 21 02/22/22 07:55 BP 144/67 H 02/22/22 06:00 Pulse Ox 92 02/22/22 08:24 Laboratory Results - last 24 hr 02/21/22 02/22/22 02/22/22 10:44 05:00 05:00 WBC 8.73 RBC 3.05 L Hgb 10.0 L Hct 29.2 L MCV 95.7 H MCH 32.8 MCHC 34.2 RDW 13.1 Plt Count 143 MPV 9.5 Immature Gran % 0.2 Neutrophils % 78.0 Lymphocytes % 12.1 Monocytes % 9.5 Eosinophils % 0.0 Basophils % 0.2 Nucleated RBC % 0.0 Absolute Neutrophils 6.80 H Absolute Lymphocytes 1.06 L Absolute Monocytes 0.83 H Absolute Eosinophils 0.00 Absolute Basophils 0.02 Sodium 127 L 130 L Potassium 3.7 3.5 Chloride 98 99 Carbon Dioxide 23.7 25.8 Anion Gap 5.3 5.2 BUN 11 Creatinine 0.8 Estimated GFR/1.73 m2 >= 60.00 Glucose 120 H Calcium 8.1 L Objective Narrative Objective Narrative: CXR: Bilateral infiltrates.? Small bilateral pleural effusions also noted. PAWSS Have you Been Recently Intoxicated or Drunk Within the Last 30 days?: Yes Have you Ever Experienced Previous Episodes of Alcohol Withdrawal?: No Have you ever Experienced Withdrawal Seizures?: No Have you ever Experienced Delirium Tremens(DT)s?: No Have you ever undergone Alcohol Rehabilitation Treatment (i.e, inpt ot outpatient treatment programs)?: No Have you ever Experienced Blackouts?: No Have you ever Combined Alcohol with other Downers within the last 90 days?: No Have you ever Combined Alcohol with any other Substance of Abuse during the last 90 days?: No Positive Blood Alcohol level on Presentation? [PCS.BAL]: No Evidence of Increased Autonomic Activity (i.e. HR>120, tremor, sweating, agitation, nausea)?: No Result: 1
--- NOTE | 2022-02-22 09:19 | DI.RAD_ITS ---
Exam(s) XR CHEST 2V PA LATERAL EXAM: XR CHEST 2V PA LATERAL CLINICAL HISTORY: rib fx/pulm contusion/atelectasis. TECHNIQUE: 2D digital imaging was performed. COMPARISON: CR CHEST 2 VIEWS PA,LAT from 06/28/2014 FINDINGS: 2 views: Chest leads in place. Heart size is normal. The mediastinum is not widened. There is now infiltrate in the lower half of the right lung field, this in addition to chronic scarri ng seen in the upper lobe region (which was present in 2013). There is also infiltrate in the left lower lobe. There are bilateral small pleural effusions. IMPRESSION: Bilateral infiltrates. Small bilateral pleural effusions also noted. DATA REPOSITORY: RADIATION DOSE DELIVERED:
[2022-02-22] MEDS: Lidocaine 5% Patch 1 PATCH TP (09:46)
[2022-02-22] MEDS: Normal Saline Flush 10 ML SYR IVP ×2 (09:49→18:19)
[2022-02-22] MEDS: Multivitamin TAB 1 TAB PO (09:50)
[2022-02-22] MEDS: Gabapentin 100 MG CAP PO ×3 (09:50→19:31)
[2022-02-22] MEDS: Ferrous Sulfate 325 MG TAB PO ×2 (09:51→19:31)
[2022-02-22] MEDS: Pantoprazole 40 MG TABCR PO (09:52)
[2022-02-22] MEDS: Folic Acid 1 MG TAB PO (09:52)
[2022-02-22] MEDS: Thiamine 100 MG TAB PO (09:52)
[2022-02-22] MEDS: Enoxaparin 40 MG/0.4 ML SYR SC (09:53)
--- NOTE | 2022-02-22 10:02 | PDOC.CMPRO ---
- If Service Date Differs Date of service: 02/22/22 Time of Service: 10:12 Care Management Progress Note S/O: Barry was working with PT today when CM attempted to visit with him. Per report, he continues to have high O2 requirements, 5LO2 by oxymask this morning, saturating 96%. He remains on a ketamine drip, and his CIWA scores have been low, 1-2. CM will continue to follow. A: Barry is a 71 year old male admitted to [facility] on 02/20/22 with multitrauma. P: Anticipate Barry will return home once medically cleared. He will likely transport via private vehicle by a friend or family. He will be evaluated to determine if further services are indicated at home. He will follow up with his PCP and discharge plan of care. CM will continue to follow.
[2022-02-22 12:15] LABS: Lab Add On Test DONE
--- NOTE | 2022-02-22 12:17 | PDOC.ANES ---
Date of service: 02/22/22 Time of Service: 11:20 Anesthesia Note Report Anesthesia Note: Assessments reviewed, report from RN, and interview with the patient all report good pain relief with minimal side-effects. Pain level 2-3, will continue current infusion.
[2022-02-22 12:36] LABS: NT-proBNP 2089 pg/mL (<300)
--- NOTE | 2022-02-22 12:37 | W.PM.PROGNOT ---
Date of Service Date of service: 02/22/22 Time of Service: 17:00 Assessment and Plan Assessment and plan (1) Acute respiratory failure with hypoxia: Status: Acute (2) Multiple rib fractures: Status: Acute Assessment and plan: -Multimodal pain control with assistance of anesthesia department. Scheduled Tylenol, Lidocaine patches, Skelaxin. -Encourage incentive spirometer and acapella. -Status post nerve block by anesthesia. -Increased bilateral consolidations likely represent pulmonary contusions secondary to mechanical fall. Qualifiers: Encounter type: initial encounter Fracture type: closed Laterality: left Qualified Code(s): S22.42XA - Multiple fractures of ribs, left side, initial encounter for closed fracture (3) Fall: Status: Acute Assessment and plan: -Patient thinks he was sleep-walking; likely secondary to intoxicated state (4) Alcohol intoxication: Status: Acute Qualifiers: Complication of substance-induced condition: uncomplicated Qualified Code(s): F10.920 - Alcohol use, unspecified with intoxication, uncomplicated (5) Lumbar vertebral fracture: Status: Acute Assessment and plan: -Ortho/spine follow up recommended; likely non-operative management Qualifiers: Encounter type: initial encounter Lumbar vertebra fracture level: L4 Fracture type: closed Fracture morphology: other fracture Qualified Code(s): S32.048A - Other fracture of fourth lumbar vertebra, initial encounter for closed fracture (6) Blunt head trauma: Status: Acute Qualifiers: Encounter type: initial encounter Qualified Code(s): S09.8XXA - Other specified injuries of head, initial encounter (7) Blunt trauma of multiple sites of trunk: Status: Acute Assessment and plan: (8) Pulmonary contusion: Status: Acute Assessment and plan: -Secondary to mechanical fall; should resolve spontaneously -Supplemental oxygen to prevent hypoxia -Pulmonary toilet Qualifiers: Encounter type: initial encounter Laterality: left Qualified Code(s): S27.321A - Contusion of lung, unilateral, initial encounter (9) Hematuria: Status: Acute Qualifiers: Hematuria type: asymptomatic microscopic Qualified Code(s): R31.21 - Asymptomatic microscopic hematuria (10) Iron deficiency: Status: Acute (11) Hypertension: Status: Chronic (12) Hyponatremia: Status: Acute (13) Bronchiectasis: Status: Chronic Qualifiers: Bronchiectasis type: uncomplicated Qualified Code(s): J47.9 - Bronchiectasis, uncomplicated (14) Emphysema lung: Status: Acute Qualifiers: Emphysema type: centrilobular Qualified Code(s): J43.2 - Centrilobular emphysema (15) Anemia: Status: Chronic Qualifiers: Anemia type: iron deficiency Iron deficiency anemia type: unspecified iron deficiency Qualified Code(s): D50.9 - Iron deficiency anemia, unspecified (16) Hypocalcemia: Status: Ruled-out (17) DVT prophylaxis: Status: Acute Assessment and plan: -Ambulation and subcutaneous lovenox (18) Discharge planning issues: Status: Acute Assessment and plan: Full code Continues to require hospitalization. Can move out of the ICU once off of ketamine gtt. Subjective Subjective Patient reports: still having pain and tolerating a regular diet; denies bowel movement Exam Const General: cooperative, no acute distress and other (appears uncomfortable secondary to pain from rib fx when coughing) Nutritional Appearance: average body habitus Chest Chest: tenderness and other (ecchymosis left shoulder/back) Resp Effort & Inspection: normal respiratory effort, able to speak in complete sentences, not labored and no respiratory distress Cardio Rate: regular rate Skin General skin exam: ecchymosis (scattered including face/left shoulder/back/arms/legs) Objective Last Vital Signs Temp 98.6 F 02/22/22 04:00 Pulse 98 H 02/22/22 10:20 Resp 20 02/22/22 12:00 BP 159/75 H 02/22/22 10:20 Pulse Ox 89 L 02/22/22 12:00 Laboratory Results - last 24 hr 02/22/22 02/22/22 02/22/22 05:00 05:00 05:00 WBC 8.73 RBC 3.05 L Hgb 10.0 L Hct 29.2 L MCV 95.7 H MCH 32.8 MCHC 34.2 RDW 13.1 Plt Count 143 MPV 9.5 Immature Gran % 0.2 Neutrophils % 78.0 Lymphocytes % 12.1 Monocytes % 9.5 Eosinophils % 0.0 Basophils % 0.2 Nucleated RBC % 0.0 Absolute Neutrophils 6.80 H Absolute Lymphocytes 1.06 L Absolute Monocytes 0.83 H Absolute Eosinophils 0.00 Absolute Basophils 0.02 Sodium 130 L Potassium 3.5 Chloride 99 Carbon Dioxide 25.8 Anion Gap 5.2 BUN 11 Creatinine 0.8 Estimated GFR/1.73 m2 >= 60.00 Glucose 120 H Calcium 8.1 L Add-On Test Request DONE PAWSS Have you Been Recently Intoxicated or Drunk Within the Last 30 days?: Yes Have you Ever Experienced Previous Episodes of Alcohol Withdrawal?: No Have you ever Experienced Withdrawal Seizures?: No Have you ever Experienced Delirium Tremens(DT)s?: No Have you ever undergone Alcohol Rehabilitation Treatment (i.e, inpt ot outpatient treatment programs)?: No Have you ever Experienced Blackouts?: No Have you ever Combined Alcohol with other Downers within the last 90 days?: No Have you ever Combined Alcohol with any other Substance of Abuse during the last 90 days?: No Positive Blood Alcohol level on Presentation? [PCS.BAL]: No Evidence of Increased Autonomic Activity (i.e. HR>120, tremor, sweating, agitation, nausea)?: No Result: 1
[2022-02-22 12:50] LABS: Procalcitonin 0.3 ng/mL
[2022-02-22] MEDS: Docusate Sodium 100 MG CAP PO ×2 (13:08→19:31)
[2022-02-22] MEDS: predniSONE 20 MG TAB 40 MG PO (13:10)
--- NOTE | 2022-02-22 13:59 | PT.INTREAT ---
Date of service: 02/22/22 Time of Service: 13:30 PT Notes Visit Reasons: Multitrauma Inpatient Physical Therapy Treatment Note [facility] Date: 02/22/2022 PRECAUTIONS: ETOH withdrawl precautions, Fall, Activity as tolerated SUBJECTIVE: Barry is agreeable to participating in PT. He reports that he is very tired and that he has not been sleeping well. OBJECTIVE: PAIN: Patient reports that he has no pain, just pressure on L shoulder with standing BED MOBILITY/TRANSFERS Sit-stand: SBA Stand-sit: SBA GAIT Assistive Device: FWW Weight bearing: Full Assist: SBA Distance: 10' x2 Deviation: Slow pacing, seated rest, no pain, c/o increasing fatigue VITALS: VS monitored throughout session, all WNL ASSESSMENT: Patient tolerated session with c/o increased fatigue with gait training, although reports that he has no pain. PLAN: Continue with gait and transfer training as well as global strengthening for improved mobility and activity tolerance. TREATMENT CODE/TIME: 20 minutes; 17588 (13:30)
[2022-02-22] MEDS: Furosemide 20 MG/2 ML VIAL IVP (18:20)
[2022-02-22] MEDS: Lidocaine Patch Removal 1 EACH TD (19:32)
[2022-02-23] VITALS (56 sets, daily range): BP systolic 128–179; BP diastolic 55–115; PULSE 57–110; RESP 4–35; TEMP 36.8–37.4; O2SAT 83–96
[2022-02-23] MEDS: Acetaminophen 500 MG TAB 1000 MG PO ×3 (06:03→21:14)
[2022-02-23] MEDS: Normal Saline Flush 10 ML SYR IVP ×3 (06:03→21:14)
[2022-02-23 06:23] LABS: Abs Immature Grans 0.03 10^3/uL (0.0-0.06); Absolute Basophil Count 0.01 10^3/uL (0.0-0.2); Absolute Lymphocyte Count 1.17 10^3/uL (1.2-3.4); Absolute Monocyte Count 0.84 10^3/uL (0.1-0.8); Absolute Neutrophil Count 6.85 10^3/uL (1.2-6.7); Basophils % 0.1; HCT 28.2 % (40.0-50.0); HGB 9.8 g/dL (13.5-17.5); Immature Grans % 0.3; Lymphocytes % 13.1; MCH 33.4 pg (27.0-33.0); MCHC 34.8 % (32.0-36.0); MCV 96.2 fL (80-95); MPV 9.6 fL (8.0-11.0); Monocytes % 9.4; Neutrophils % 77.1; Platelet Count 157 10^3/uL (130-400); RBC 2.93 10^6/uL (4.36-5.78); RDW 12.9 % (11.8-14.1); RDW-SD 45.8 fL
[2022-02-23 06:44] LABS: Anion Gap 6.6 mmol/L (3-11); BUN 19 mg/dL (7-18); CO2 27.4 mmol/L (21.0-32.0); CREATININE 0.8 mg/dL (0.70-1.30); Calcium 8.4 mg/dL (8.5-10.1); Chloride 98 mmol/L (98-107); Glucose 114 mg/dL (74-106); Magnesium 1.9 mg/dL (1.8-2.4); Potassium 3.2 mmol/L (3.5-5.1); Sodium 132 mmol/L (136-145)
[2022-02-23] MEDS: Albuterol/Ipratropium 3 ML UPD VIAL UPD ×3 (07:58→21:14)
--- NOTE | 2022-02-23 08:48 | PGE_ITS ---
Date of Service Date of service: 02/23/22 Time of Service: 10:55 Assessment and Plan Assessment and plan (1) Acute respiratory failure with hypoxia: Status: Acute (2) Multiple rib fractures: Status: Acute Assessment and plan: -Multimodal pain control with assistance of anesthesia department. Scheduled Tylenol, Lidocaine patches, Skelaxin. -Encourage incentive spirometer and acapella. -Status post nerve block by anesthesia. -Increased bilateral consolidations likely represent pulmonary contusions secondary to mechanical fall. Qualifiers: Encounter type: initial encounter Fracture type: closed Laterality: left Qualified Code(s): S22.42XA - Multiple fractures of ribs, left side, initial encounter for closed fracture (3) Fall: Status: Acute Assessment and plan: -Patient thinks he was sleep-walking; likely secondary to intoxicated state (4) Alcohol intoxication: Status: Acute Qualifiers: Complication of substance-induced condition: uncomplicated Qualified Code(s): F10.920 - Alcohol use, unspecified with intoxication, uncomplicated (5) Lumbar vertebral fracture: Status: Acute Assessment and plan: -Ortho/spine follow up recommended; likely non-operative management Qualifiers: Encounter type: initial encounter Lumbar vertebra fracture level: L4 Fracture type: closed Fracture morphology: other fracture Qualified Code(s): S32.048A - Other fracture of fourth lumbar vertebra, initial encounter for closed fracture (6) Blunt head trauma: Status: Acute Qualifiers: Encounter type: initial encounter Qualified Code(s): S09.8XXA - Other specified injuries of head, initial encounter (7) Blunt trauma of multiple sites of trunk: Status: Acute Assessment and plan: (8) Pulmonary contusion: Status: Acute Assessment and plan: -Secondary to mechanical fall; should resolve spontaneously -Supplemental oxygen to prevent hypoxia -Pulmonary toilet Qualifiers: Encounter type: initial encounter Laterality: left Qualified Code(s): S27.321A - Contusion of lung, unilateral, initial encounter (9) Hematuria: Status: Acute Qualifiers: Hematuria type: asymptomatic microscopic Qualified Code(s): R31.21 - Asymptomatic microscopic hematuria (10) Iron deficiency: Status: Acute (11) Hypertension: Status: Chronic (12) Hyponatremia: Status: Acute (13) Bronchiectasis: Status: Chronic Qualifiers: Bronchiectasis type: uncomplicated Qualified Code(s): J47.9 - Bronchiectasis, uncomplicated (14) Emphysema lung: Status: Acute Qualifiers: Emphysema type: centrilobular Qualified Code(s): J43.2 - Centrilobular emphysema (15) Anemia: Status: Chronic Qualifiers: Anemia type: iron deficiency Iron deficiency anemia type: unspecified iron deficiency Qualified Code(s): D50.9 - Iron deficiency anemia, unspecified (16) Hypocalcemia: Status: Ruled-out (17) DVT prophylaxis: Status: Acute Assessment and plan: -Ambulation and subcutaneous lovenox (18) Discharge planning issues: Status: Acute Assessment and plan: Full code Continues to require hospitalization. Can move out of the ICU once off of ketamine gtt. Subjective Subjective Patient reports: no new complaints, feels better and tolerating a regular diet; denies bowel movement, nausea or vomiting Exam Const General: cooperative, comfortable, no acute distress and other (sitting in chair at the side of the bed) Nutritional Appearance: average body habitus Chest Chest: tenderness and other (ecchymosis left shoulder/back) Resp Effort & Inspection: normal respiratory effort, able to speak in complete sentences, not labored and no respiratory distress Cardio Rate: regular rate Skin General skin exam: ecchymosis (scattered including face/left shoulder/back/arms/legs) Objective Last Vital Signs Temp 99.1 F 02/23/22 06:00 Pulse 106 H 02/23/22 06:00 Resp 16 02/23/22 07:58 BP 160/80 H 02/23/22 06:00 Pulse Ox 93 02/23/22 08:00 Laboratory Results - last 24 hr 02/22/22 02/22/22 02/22/22 05:00 05:00 05:00 WBC RBC Hgb Hct MCV MCH MCHC RDW Plt Count MPV Immature Gran % Neutrophils % Lymphocytes % Monocytes % Eosinophils % Basophils % Nucleated RBC % Absolute Neutrophils Absolute Lymphocytes Absolute Monocytes Absolute Eosinophils Absolute Basophils Sodium Potassium Chloride Carbon Dioxide Anion Gap BUN Creatinine Estimated GFR/1.73 m2 Glucose Calcium Magnesium NT-Pro-B Natriuret Pep 2089 H Procalcitonin 0.3 Add-On Test Request DONE 02/23/22 02/23/22 06:00 06:00 WBC 8.90 RBC 2.93 L Hgb 9.8 L Hct 28.2 L MCV 96.2 H MCH 33.4 H MCHC 34.8 RDW 12.9 Plt Count 157 MPV 9.6 Immature Gran % 0.3 Neutrophils % 77.1 Lymphocytes % 13.1 Monocytes % 9.4 Eosinophils % 0.0 Basophils % 0.1 Nucleated RBC % 0.0 Absolute Neutrophils 6.85 H Absolute Lymphocytes 1.17 L Absolute Monocytes 0.84 H Absolute Eosinophils 0.00 Absolute Basophils 0.01 Sodium 132 L Potassium 3.2 L Chloride 98 Carbon Dioxide 27.4 Anion Gap 6.6 BUN 19 H D Creatinine 0.8 Estimated GFR/1.73 m2 >= 60.00 Glucose 114 H Calcium 8.4 L Magnesium 1.9 NT-Pro-B Natriuret Pep Procalcitonin Add-On Test Request PAWSS Have you Been Recently Intoxicated or Drunk Within the Last 30 days?: Yes Have you Ever Experienced Previous Episodes of Alcohol Withdrawal?: No Have you ever Experienced Withdrawal Seizures?: No Have you ever Experienced Delirium Tremens(DT)s?: No Have you ever undergone Alcohol Rehabilitation Treatment (i.e, inpt ot outpatien t treatment programs)?: No Have you ever Experienced Blackouts?: No Have you ever Combined Alcohol with other Downers within the last 90 days?: No Have you ever Combined Alcohol with any other Substance of Abuse during the last 90 days?: No Positive Blood Alcohol level on Presentation? [PCS.BAL]: No Evidence of Increased Autonomic Activity (i.e. HR>120, tremor, sweating, agitation, nausea)?: No Result: 1
--- NOTE | 2022-02-23 09:58 | CMPROGNOTE_ITS ---
- If Service Date Differs Date of service: 02/23/22 Time of Service: 09:59 Care Management Progress Note S/O: Barry was sitting up in his chair when CM met with him. He reported that he is feeling ok, and his pain is well controlled. CM discussed PT's recommendation to go to SNF, but he is not interested in short term rehab. He is agreeable to PT or outpatient PT. CM discussed this with PT today, and they stated that he will likely be ok to return home once he is medically cleared. CM will continue to follow. A: Barry is a 71 year old male admitted to [facility] on 02/20/22 with multitrauma. P: Anticipate Barry will return home once medically cleared. He will likely transport via private vehicle by a friend or family. He will be evaluated to determine if further services are indicated at home. He will follow up with his PCP and discharge plan of care. CM will continue to follow.
[2022-02-23] MEDS: Enoxaparin 40 MG/0.4 ML SYR SC (10:20)
[2022-02-23] MEDS: amLODIPine 5 MG TAB PO (10:20)
[2022-02-23] MEDS: Ferrous Sulfate 325 MG TAB PO ×2 (10:20→21:14)
[2022-02-23] MEDS: Docusate Sodium 100 MG CAP PO ×2 (10:20→21:14)
[2022-02-23] MEDS: Folic Acid 1 MG TAB PO (10:20)
[2022-02-23] MEDS: Multivitamin TAB 1 TAB PO (10:21)
[2022-02-23] MEDS: Lidocaine 5% Patch 1 PATCH TP (10:21)
[2022-02-23] MEDS: Gabapentin 100 MG CAP PO ×3 (10:21→21:14)
[2022-02-23] MEDS: Polyethylene Glycol 3350 17 GM PACKET PO (10:22)
[2022-02-23] MEDS: Pantoprazole 40 MG TABCR PO (10:22)
[2022-02-23] MEDS: Potassium Chloride 20 MEQ TABCR 40 MEQ PO ×2 (10:23→21:14)
[2022-02-23] MEDS: predniSONE 20 MG TAB 40 MG PO (10:23)
[2022-02-23] MEDS: Thiamine 100 MG TAB PO (10:24)
--- NOTE | 2022-02-23 10:48 | PT.INTREAT ---
Date of service: 02/23/22 Time of Service: 08:16 PT Notes Visit Reasons: Multitrauma Inpatient Physical Therapy Treatment Note [facility] Date: 02/23/2022 PRECAUTIONS: ETOH withdrawl precautions, Fall, Activity as tolerated SUBJECTIVE: Barry is agreeable to participating in PT. He reports that he slept well and is not in any pain today. OBJECTIVE: PAIN: Patient reports that he has no pain BED MOBILITY/TRANSFERS Supine-sit: I with HOB at 20 degrees Sit-stand: SBA Stand-sit: SBA Bed-chair: SBA GAIT Assistive Device: FWW Weight bearing: Full Assist: SBA Distance: 20' + 15' in a.m.; 150' in p.m. Deviation: Slow pacing, seated rest, no pain VITALS: Monitored throughout session: irregular HR noted to be between 109-122 throughout session, reported to Dr. Rodriguez; 87-90% on 6L O2 with gait training, reported to RT. THEREX: Patient was instructed in a LE strengthening program, completed in a seated position, as per flow sheet. ASSESSMENT: Patient tolerated a progression in gait distance, with FWW support and SBA. He continues to report that he has no pain with activity. PLAN: Continue with gait and transfer training as well as global strengthening for improved mobility and activity tolerance. TREATMENT CODE/TIME: Session 1: 20 minutes; 27340 (08:16) Session 2: 25 minutes; [id number] x2 (11:08)
--- NOTE | 2022-02-23 10:55 | PDOC.ANES ---
Anesthesia Note Report Anesthesia Note: Pt sitting up in chair and states that he has no pain. Report from RN. Ketamine gtt unchanged. No side effects from ketamine gtt described.
--- NOTE | 2022-02-23 11:00 | PGE_ITS ---
Date of Service Date of service: 02/23/22 Time of Service: 08:45 Assessment and Plan Assessment and plan (1) Acute respiratory failure with hypoxia: Status: Acute Assessment and plan: Multifactorial, suspect due to pulmonary contusions, atelectasis/pain of rib fractures, splinting, COPD exacerbation, bronchiectasis, possible superimposed PNA and CHF. Clinically better today, down to 5L. I have relaxed goal O2 requirement to O2 sat >88% given his h/o chronic lung disease. Procalcitonin low, proBNP elevated - received 1 dose of lasix IV yesterday. Normally on HCTZ. Would benefit from a formal echo when the ribs are more healed/not as painful. Continue prednisone, scheduled and prn nebs. Encourage pulmonary toilet. Wean O2 as tolerated. COVID negative on admission. (2) Multiple rib fractures: Status: Acute Assessment and plan: Continue pain control (ketamine gtt - anasthesia is following) - hoping to transition to oral meds. Continue scheduled tylenol. Encourage pulmonary toiletting. Status post nerve block left erector spinae. Consider addition of NSAIDs (has a h/o iron deficiency anemia). Qualifiers: Encounter type: initial encounter Fracture type: closed Laterality: left Qualified Code(s): S22.42XA - Multiple fractures of ribs, left side, initial encounter for closed fracture (3) Fall: Status: Acute Assessment and plan: Unwitnessed fall, ?syncope vs alcoholic blackout. Continue cardiac monitoring. Would benefit from an echo when ribs less painful. (4) Alcohol intoxication: Status: Acute Assessment and plan: No evidence of EtOH w/d at this time. Continue thiammine, MVI. He is on ketamine gtt. Qualifiers: Complication of substance-induced condition: uncomplicated Qualified Code(s): F10.920 - Alcohol use, unspecified with intoxication, uncomplicated (5) Lumbar vertebral fracture: Status: Acute Assessment and plan: As above. Vitamin D level pending. PT. Qualifiers: Encounter type: initial encounter Lumbar vertebra fracture level: L4 Fracture type: closed Fracture morphology: other fracture Qualified Code(s): S32.048A - Other fracture of fourth lumbar vertebra, initial encounter for closed fracture (6) Blunt head trauma: Status: Acute Assessment and plan: CT head negative. Monitor for post-concussive symptoms. Qualifiers: Encounter type: initial encounter Qualified Code(s): S09.8XXA - Other specified injuries of head, initial encounter (7) Blunt trauma of multiple sites of trunk: Status: Acute Assessment and plan: Resulting in multiple rib fractures and ecchymosis, treated as above. (8) Pulmonary contusion: Status: Acute Assessment and plan: Likely contributing to the hypoxia. As above. At increased risk for flail chest. Pain control per anesthesia. Encourage pulmonary toiletting. No abx - procalcitonin low. Qualifiers: Encounter type: initial encounter Laterality: left Qualified Code(s): S27.321A - Contusion of lung, unilateral, initial encounter (9) Hematuria: Status: Acute Assessment and plan: Possible secondary to [place] trauma. Resolving. [place] is out. Holding on NSAIDs at this time. Qualifiers: Hematuria type: asymptomatic microscopic Qualified Code(s): R31.21 - Asymptomatic microscopic hematuria (10) Iron deficiency: Status: Acute Assessment and plan: Continue oral iron. (11) Hypertension: Status: Chronic Assessment and plan: Continue amlodipine 5 mg PO daily. Reintroduce lisinopril. Prednisone may be driving the BP up. (12) Hyponatremia: Status: Acute Assessment and plan: Improved, agree that it is likely due to beer potomania, s/p combo of hypertonic saline and DDAVP. Remains stable. Continue to monitor. (13) Bronchiectasis: Status: Chronic Assessment and plan: With an acute excacerbation. As above - continue scheduled nebs, prn meds, prednisone. Wean O2 as tolerated. No abx - procalcitonin negative. Qualifiers: Bronchiectasis type: uncomplicated Qualified Code(s): J47.9 - Bronchiectasis, uncomplicated (14) Emphysema lung: Status: Acute Assessment and plan: Continue supplemental oxygen as needed to keep SPO2 over 90% and pulmonary toileting. CXR with Bilateral pulmonary infiltrates, nonspecific, but procalcitonin negative. Clinically much better post initiation of prednisone and a dose of lasix. Continue prednisone, scheduled/prn nebs, wean O2 as tolerated. Pulmonary toileting. Qualifiers: Emphysema type: centrilobular Qualified Code(s): J43.2 - Centrilobular emphysema (15) Anemia: Status: Chronic Assessment and plan: Continue iron supplementation. Qualifiers: Anemia type: iron deficiency Iron deficiency anemia type: unspecified iron deficiency Qualified Code(s): D50.9 - Iron deficiency anemia, unspecified (16) Hypocalcemia: Status: Ruled-out Assessment and plan: Calcium is normal when corrected for albumin. (17) DVT prophylaxis: Status: Acute Assessment and plan: SC lovenox (18) Discharge planning issues: Status: Acute Assessment and plan: Full code Continues to require hospitalization. Can move out of the ICU once off of ketamine gtt. Subjective Subjective Interval history since last seen: No CP unless coughing. No SOB, n/v/dizziness. Remains on ketamine gtt. Tachycardic with HR up to 120s while ambulating and irregular, per PT. Sinus rhythm with PACs registered on the monitor. 91% on 5L oxymask this am. Not scoring on CIWA. Exam Narrative Exam Narrative: General: Pleasant nontremulous male, sitting up in a chair on oxymask, A&Ox3, large L shoulder/back ecchymosis visible, NAD, looks much more comfortable than yesterday HEENT: EOMI, MMM Heart: RRR, no m/r/g Lungs: Significant improvement in B rales/rhonchi - diminished breath sounds B Abdomen: soft, nontender, nondistended Extremities: no edema BLEs, +1 pedal pulses B Objective Last Vital Signs Temp 36.8 C 02/23/22 10:16 Pulse 97 H 02/23/22 10:16 Resp 25 H 02/23/22 10:16 BP 151/77 H 02/23/22 10:16 Pulse Ox 90 L 02/23/22 10:27 Laboratory Results - last 24 hr 02/22/22 02/22/22 02/22/22 05:00 05:00 05:00 WBC RBC Hgb Hct MCV MCH MCHC RDW Plt Count MPV Immature Gran % Neutrophils % Lymphocytes % Monocytes % Eosinophils % Basophils % Nucleated RBC % Absolute Neutrophils Absolute Lymphocytes Absolute Monocytes Absolute Eosinophils Absolute Basophils Sodium Potassium Chloride Carbon Dioxide Anion Gap BUN Creatinine Estimated GFR/1.73 m2 Glucose Calcium Magnesium NT-Pro-B Natriuret Pep 9 H Procalcitonin 0.3 Add-On Test Request DONE 02/23/22 02/23/22 06:00 06:00 WBC 8.90 RBC 2.93 L Hgb 9.8 L Hct 28.2 L MCV 96.2 H MCH 33.4 H MCHC 34.8 RDW 12.9 Plt Count 157 MPV 9.6 Immature Gran % 0.3 Neutrophils % 77.1 Lymphocytes % 13.1 Monocytes % 9.4 Eosinophils % 0.0 Basophils % 0.1 Nucleated RBC % 0.0 Absolute Neutrophils 6.85 H Absolute Lymphocytes 1.17 L Absolute Monocytes 0.84 H Absolute Eosinophils 0.00 Absolute Basophils 0.01 Sodium 132 L Potassium 3.2 L Chloride 98 Carbon Dioxide 27.4 Anion Gap 6.6 BUN 19 H D Creatinine 0.8 Estimated GFR/1.73 m2 >= 60.00 Glucose 114 H Calcium 8.4 L Magnesium 1.9 NT-Pro-B Natriuret Pep Procalcitonin Add-On Test Request PAWSS Have you Been Recently Intoxicated or Drunk Within the Last 30 days?: Yes Have you Ever Experienced Previous Episodes of Alcohol Withdrawal?: No Have you ever Experienced Withdrawal Seizures?: No Have you ever Experienced Delirium Tremens(DT)s?: No Have you ever undergone Alcohol Rehabilitation Treatment (i.e, inpt ot outpatie nt treatment programs)?: No Have you ever Experienced Blackouts?: No Have you ever Combined Alcohol with other Downers within the last 90 days?: No Have you ever Combined Alcohol with any other Substance of Abuse during the last 90 days?: No Positive Blood Alcohol level on Presentation? [PCS.BAL]: No Evidence of Increased Autonomic Activity (i.e. HR>120, tremor, sweating, agitation, nausea)?: No Result: 1 Multi-Disciplinary Checklist Lines/Tubes CENTRAL LINE: no ARTERIAL LINE: no [place]: no ENDOTRACHEAL TUBE: no ICU Maintenance GLUCOSE 140-180mg/dL: no, Reason/Intervention: lower - not diabetic NUTRITION AT GOAL: yes PRESSURE ULCER: no RESTRAINTS: no ANTIBIOTICS(if yes, consider Stewardship): No Social Issues FAMILY UPDATED: no, Reason/Intervention: Patient alert and oriented; able to do this himself PT/OT: yes GOALS/DISPOSITION/ADVISORY APPLICATION DEVELOPER: yes CODE STATUS: Full Prophylaxis DVT PROPHYLAXIS: yes GI PROPHYLAXIS: yes, Indication: on prednisone
[2022-02-23] MEDS: Lisinopril 5 MG TAB PO (12:46)
--- NOTE | 2022-02-23 16:24 | NUTRITION ---
Patient given a cup of cola.
[2022-02-23] MEDS: Lidocaine Patch Removal 1 EACH TD (21:15)
[2022-02-24] VITALS (50 sets, daily range): BP systolic 119–166; BP diastolic 64–107; PULSE 81–108; RESP 2–30; TEMP 36.4–37.4; O2SAT 82–92
[2022-02-24] MEDS: Albuterol 2.5 MG/3 ML INH SOLN VIAL UPD (01:35)
[2022-02-24] MEDS: Normal Saline Flush 10 ML SYR IVP ×4 (05:18→14:45)
[2022-02-24] MEDS: Acetaminophen 500 MG TAB 1000 MG PO ×3 (05:18→20:06)
[2022-02-24 06:16] LABS: Abs Immature Grans 0.03 10^3/uL (0.0-0.06); Absolute Basophil Count 0.01 10^3/uL (0.0-0.2); Absolute Eosinophil Count 0.01 10^3/uL (0.0-0.7); Absolute Lymphocyte Count 0.89 10^3/uL (1.2-3.4); Absolute Monocyte Count 0.77 10^3/uL (0.1-0.8); Absolute Neutrophil Count 7.61 10^3/uL (1.2-6.7); Anion Gap 6.5 mmol/L (3-11); BUN 21 mg/dL (7-18); Basophils % 0.1; CO2 26.5 mmol/L (21.0-32.0); CREATININE 0.8 mg/dL (0.70-1.30); Calcium 8.8 mg/dL (8.5-10.1); Chloride 101 mmol/L (98-107); Eosinophils % 0.1; Glucose 106 mg/dL (74-106); HCT 28.1 % (40.0-50.0); HGB 9.7 g/dL (13.5-17.5); Immature Grans % 0.3; Lymphocytes % 9.5; MCH 33.2 pg (27.0-33.0); MCHC 34.5 % (32.0-36.0); MCV 96.2 fL (80-95); MPV 9.6 fL (8.0-11.0); Monocytes % 8.3; Neutrophils % 81.7; Platelet Count 173 10^3/uL (130-400); RBC 2.92 10^6/uL (4.36-5.78); RDW 13.3 % (11.8-14.1); RDW-SD 47.1 fL; Sodium 134 mmol/L (136-145); WBC 9.32 10^3/uL (4.4-10.8)
[2022-02-24] MEDS: Albuterol/Ipratropium 3 ML UPD VIAL UPD ×3 (07:57→20:05)
[2022-02-24] MEDS: Docusate Sodium 100 MG CAP PO ×2 (09:29→20:05)
[2022-02-24] MEDS: amLODIPine 5 MG TAB PO (09:29)
[2022-02-24] MEDS: Enoxaparin 40 MG/0.4 ML SYR SC (09:29)
[2022-02-24] MEDS: Ferrous Sulfate 325 MG TAB PO ×2 (09:30→20:06)
[2022-02-24] MEDS: Furosemide 20 MG TAB PO (09:30)
[2022-02-24] MEDS: Lidocaine 5% Patch 1 PATCH TP (09:30)
[2022-02-24] MEDS: Folic Acid 1 MG TAB PO (09:30)
[2022-02-24] MEDS: Gabapentin 100 MG CAP PO ×3 (09:30→20:06)
[2022-02-24] MEDS: Polyethylene Glycol 3350 17 GM PACKET PO (09:31)
[2022-02-24] MEDS: Lisinopril 5 MG TAB PO (09:31)
[2022-02-24] MEDS: Multivitamin TAB 1 TAB PO (09:31)
[2022-02-24] MEDS: Thiamine 100 MG TAB PO (09:31)
[2022-02-24] MEDS: predniSONE 20 MG TAB 40 MG PO (09:31)
[2022-02-24] MEDS: Pantoprazole 40 MG TABCR PO (09:31)
--- NOTE | 2022-02-24 10:45 | PGE_ITS ---
Date of Service Date of service: 02/24/22 Time of Service: 08:45 Assessment and Plan Assessment and plan (1) Acute respiratory failure with hypoxia: Status: Acute Assessment and plan: Multifactorial, suspect due to pulmonary contusions, atelectasis/pain of rib fractures, splinting, COPD exacerbation, bronchiectasis, possible superimposed PNA and CHF. Given purulent appearance of sputum and worsening of pulmonary exam, will add doxycycline/ceftriaxone. Sputum culture obtained. Will also give one dose of lasix 20 mg PO. Would benefit from a formal echo when the ribs are more healed/not as painful. Continue prednisone, scheduled and prn nebs. Encourage pulmonary toilet. Wean O2 as tolerated. COVID negative on admission. (2) Multiple rib fractures: Status: Acute Assessment and plan: Continue pain control (ketamine gtt - anasthesia is following). Continue cecilia eduled tylenol. Encourage pulmonary toiletting. Status post nerve block left erector spinae. Consider addition of NSAIDs (has a h/o iron deficiency anemia). Qualifiers: Encounter type: initial encounter Fracture type: closed Laterality: left Qualified Code(s): S22.42XA - Multiple fractures of ribs, left side, initial encounter for closed fracture (3) Fall: Status: Acute Assessment and plan: Unwitnessed fall, ?syncope vs alcoholic blackout. Continue cardiac monitoring. Would benefit from an echo when ribs less painful. (4) Alcohol intoxication: Status: Acute Assessment and plan: No evidence of EtOH w/d at this time. D/c CIWA. Continue thiammine, MVI. He is on ketamine gtt. Qualifiers: Complication of substance-induced condition: uncomplicated Qualified Code(s): F10.920 - Alcohol use, unspecified with intoxication, uncomplicated (5) Lumbar vertebral fracture: Status: Acute Assessment and plan: As above. Vitamin D level pending. PT. Qualifiers: Encounter type: initial encounter Lumbar vertebra fracture level: L4 Fracture type: closed Fracture morphology: other fracture Qualified Code(s): S32.048A - Other fracture of fourth lumbar vertebra, initial encounter for closed fracture (6) Blunt head trauma: Status: Acute Assessment and plan: CT head negative. Monitor for post-concussive symptoms. Qualifiers: Encounter type: initial encounter Qualified Code(s): S09.8XXA - Other specified injuries of head, initial encounter (7) Blunt trauma of multiple sites of trunk: Status: Acute Assessment and plan: Resulting in multiple rib fractures and ecchymosis, treated as above. (8) Pulmonary contusion: Status: Acute Assessment and plan: Likely contributing to the hypoxia. As above. At increased risk for flail chest and pneumonia. Pain control per anesthesia. Encourage pulmonary toiletting. Introducing doxycycline/ceftriaxone today due to clinical worsening and purulent sputum appearance. Qualifiers: Encounter type: initial encounter Laterality: left Qualified Code(s): S27.321A - Contusion of lung, unilateral, initial encounter (9) Hematuria: Status: Acute Assessment and plan: Possible secondary to [place] trauma. Resolving. [place] is out. Holding on NSAIDs at this time. Qualifiers: Hematuria type: asymptomatic microscopic Qualified Code(s): R31.21 - Asymptomatic microscopic hematuria (10) Iron deficiency: Status: Acute Assessment and plan: Continue oral iron. (11) Hypertension: Status: Chronic Assessment and plan: Continue amlodipine 5 mg PO daily. Reintroduce lisinopril. Prednisone may be driving the BP up. (12) Hyponatremia: Status: Acute Assessment and plan: Stable off of fluid restriction. Likely due to beer potomania, s/p combo of hypertonic saline and DDAVP. Remains stable. Continue to monitor. (13) Bronchiectasis: Status: Chronic Assessment and plan: With an acute excacerbation. As above - continue scheduled nebs, prn meds, prednisone. Wean O2 as tolerated. Add doxycycine/ceftriaxone. Qualifiers: Bronchiectasis type: uncomplicated Qualified Code(s): J47.9 - Bronchiectasis, uncomplicated (14) Emphysema lung: Status: Acute Assessment and plan: Continue supplemental oxygen as needed to keep SPO2 over 90% and pulmonary toileting. CXR with Bilateral pulmonary infiltrates, nonspecific. Sputum is purulent today and pulmonary exam worse. Add abx. Continue prednisone, scheduled/prn nebs, wean O2 as tolerated. Pulmonary toileting. Qualifiers: Emphysema type: centrilobular Qualified Code(s): J43.2 - Centrilobular emphysema (15) Anemia: Status: Chronic Assessment and plan: Continue iron supplementation. Qualifiers: Anemia type: iron deficiency Iron deficiency anemia type: unspecified iron deficiency Qualified Code(s): D50.9 - Iron deficiency anemia, unspecified (16) Hypocalcemia: Status: Ruled-out Assessment and plan: Calcium is normal when corrected for albumin. (17) DVT prophylaxis: Status: Acute Assessment and plan: SC lovenox (18) Discharge planning issues: Status: Acute Assessment and plan: Full code Continues to require hospitalization. Can move out of the ICU once off of ketamine gtt. Subjective Subjective Interval history since last seen: Mr La states that he is not in pain unless he is coughing. Cough is productive - yellow sputum. He remains on ketamine drip. He is on O2 at 5L by NC this am, saturating in high 80s. Denies dizziness, shortness of breath, nausea. No signs of EtOH w/d. Incontinent of urine. Exam Narrative Exam Narrative: General: Pleasant nontremulous male, sitting up in a chair on NC, A&Ox3, large L shoulder/back ecchymosis visible, unchanged, comfortable HEENT: EOMI, MMM Heart: RRR, no m/r/g Lungs: Expiratory wheezing and mild rales, worse than yesterday, but better than 48 hrs ago. Abdomen: soft, nontender, nondistended Extremities: no edema BLEs, +1 pedal pulses B Objective Last Vital Signs Temp 37.0 C 02/24/22 10:29 Pulse 98 H 02/24/22 10:29 Resp 19 02/24/22 10:29 BP 147/65 H 02/24/22 10:29 Pulse Ox 88 L 02/24/22 10:29 Laboratory Results - last 24 hr 02/24/22 02/24/22 05:30 05:30 WBC 9.32 RBC 2.92 L Hgb 9.7 L Hct 28.1 L MCV 96.2 H MCH 33.2 H MCHC 34.5 RDW 13.3 Plt Count 173 MPV 9.6 Immature Gran % 0.3 Neutrophils % 81.7 Lymphocytes % 9.5 Monocytes % 8.3 Eosinophils % 0.1 Basophils % 0.1 Nucleated RBC % 0.0 Absolute Neutrophils 7.61 H Absolute Lymphocytes 0.89 L Absolute Monocytes 0.77 Absolute Eosinophils 0.01 Absolute Basophils 0.01 Sodium 134 L Potassium 4.0 D Chloride 101 Carbon Dioxide 26.5 Anion Gap 6.5 BUN 21 H Creatinine 0.8 Estimated GFR/1.73 m2 >= 60.00 Glucose 106 Calcium 8.8 Magnesium 2.0 PAWSS Have you Been Recently Intoxicated or Drunk Within the Last 30 days?: Yes Have you Ever Experienced Previous Episodes of Alcohol Withdrawal?: No Have you ever Experienced Withdrawal Seizures?: No Have you ever Experienced Delirium Tremens(DT)s?: No Have you ever undergone Alcohol Rehabilitation Treatment (i.e, inpt ot outpatient treatment programs)?: No Have you ever Experienced Blackouts?: No Have you ever Combined Alcohol with other Downers within the last 90 days?: No Have you ever Combined Alcohol with any other Substance of Abuse during the last 90 days?: No Positive Blood Alcohol level on Presentation? [PCS.BAL]: No Evidence of Increased Autonomic Activity (i.e. HR>120, tremor, sweating, agitation, nausea)?: No Result: 1 Multi-Disciplinary Checklist Lines/Tubes CENTRAL LINE: no ARTERIAL LINE: no [place]: no ENDOTRACHEAL TUBE: no ICU Maintenance GLUCOSE 140-180mg/dL: no, Reason/Intervention: not diabetic - below these par ameters NUTRITION AT GOAL: yes PRESSURE ULCER: no RESTRAINTS: no ANTIBIOTICS(if yes, consider Stewardship): Yes Social Issues FAMILY UPDATED: no, Reason/Intervention: Patient A&Ox3 and able to update them himself PT/OT: yes GOALS/DISPOSITION/SCHOOL LABORATORY TECHNICIAN: yes CODE STATUS: Full Prophylaxis DVT PROPHYLAXIS: yes GI PROPHYLAXIS: yes,
--- NOTE | 2022-02-24 11:18 | NUR.NOTE ---
Patient is bladder scanned. Patient has 153ml residual. MD advised with result and is pleased.Nursing Note:
--- NOTE | 2022-02-24 11:20 | NUR.NOTE ---
Patient refuses PT but same is understandable. Patient may be brewing a respiratory infection. MD is aware.Nursing Note:
[2022-02-24] MEDS: cefTRIAXone 1 GM/50 ML BAG IVPB (11:33)
[2022-02-24] MEDS: DOXYCYCLINE 100 MG in Normal Saline 100 ML IVPB (12:07)
--- NOTE | 2022-02-24 12:52 | PT.INTREAT ---
Date of service: 02/24/22 Time of Service: 12:53 PT Notes Visit Reasons: Multitrauma 02/24/2022 Held PT services today due to patient not feeling well, as per discussion with nursing staff.
--- NOTE | 2022-02-24 14:27 | NUR.NOTE ---
RN finds pl sql developer for patient's phone and sets same up in room on cart.Nursing Note:
--- NOTE | 2022-02-24 14:36 | NUR.NOTE ---
RN cleans left elbow skin tear with 0.9NS and then applies nonadhesive bandage, covered with gauze and then wrapped with cling wrap for extra padding. Nursing Note:
[2022-02-24] MEDS: Lidocaine Patch Removal 1 EACH TD (20:00)
[2022-02-25] VITALS (44 sets, daily range): BP systolic 110–165; BP diastolic 66–90; PULSE 79–107; RESP 2–29; TEMP 36.5–37.1; O2SAT 84–96
[2022-02-25] MEDS: DOXYCYCLINE 100 MG in Normal Saline 100 ML IVPB ×3 (00:12→23:32)
[2022-02-25 06:12] LABS: Anion Gap 8.4 mmol/L (3-11); BUN 22 mg/dL (7-18); CO2 26.6 mmol/L (21.0-32.0); CREATININE 0.8 mg/dL (0.70-1.30); Calcium 8.9 mg/dL (8.5-10.1); Chloride 101 mmol/L (98-107); Glucose 102 mg/dL (74-106); Magnesium 1.9 mg/dL (1.8-2.4); Potassium 3.7 mmol/L (3.5-5.1); Sodium 136 mmol/L (136-145)
[2022-02-25] MEDS: Acetaminophen 500 MG TAB 1000 MG PO ×3 (06:41→21:10)
--- NOTE | 2022-02-25 07:31 | NUR.NOTE ---
RN meets with Respiratory therapist. Both agree that another ABG should be taken and if C02 remains elevated that intubation should be considered. Nursing Note:
[2022-02-25] MEDS: Albuterol/Ipratropium 3 ML UPD VIAL UPD ×3 (07:32→21:10)
--- NOTE | 2022-02-25 08:34 | W.PM.PROGNOT ---
Date of Service Date of service: 02/25/22 Time of Service: 08:37 Assessment and Plan Assessment and plan (1) Acute respiratory failure with hypoxia: Status: Acute Assessment and plan: Multifactorial, suspect due to pulmonary contusions, atelectasis/pain of rib fractures, splinting, COPD exacerbation, bronchiectasis, possible superimposed PNA and CHF. Continue empiric doxycycline/ceftriaxone. Await sputum culture. Would benefit from a formal echo when the ribs are more healed/not as painful. We can try this tomorrow since his analgesia is so effective. Continue prednisone, scheduled and prn nebs. Encourage pulmonary toilet. Wean O2 as tolerated. COVID negative on admission. (2) Multiple rib fractures: Status: Acute Assessment and plan: Continue pain control (ketamine gtt - anasthesia is following). Continue scheduled tylenol. Encourage pulmonary toiletting. Status post nerve block left erector spinae. Consider addition of NSAIDs (has a h/o iron deficiency anemia). Qualifiers: Encounter type: initial encounter Fracture type: closed Laterality: left Qualified Code(s): S22.42XA - Multiple fractures of ribs, left side, initial encounter for closed fracture (3) Fall: Status: Acute Assessment and plan: Unwitnessed fall, ?syncope vs alcoholic blackout. Continue cardiac monitoring. Would benefit from an echo when ribs less painful. (4) Alcohol intoxication: Status: Acute Assessment and plan: No evidence of EtOH w/d at this time. No longer on CIWA. Continue thiammine, MVI. He is on ketamine gtt. Qualifiers: Complication of substance-induced condition: uncomplicated Qualified Code(s): F10.920 - Alcohol use, unspecified with intoxication, uncomplicated (5) Lumbar vertebral fracture: Status: Acute Assessment and plan: As above. Vitamin D level pending. PT. Qualifiers: Encounter type: initial encounter Lumbar vertebra fracture level: L4 Fracture type: closed Fracture morphology: other fracture Qualified Code(s): S32.048A - Other fracture of fourth lumbar vertebra, initial encounter for closed fracture (6) Blunt head trauma: Status: Acute Assessment and plan: CT head negative. Monitor for post-concussive symptoms. Qualifiers: Encounter type: initial encounter Qualified Code(s): S09.8XXA - Other specified injuries of head, initial encounter (7) Blunt trauma of multiple sites of trunk: Status: Acute Assessment and plan: Resulting in multiple rib fractures and ecchymosis, treated as above. (8) Pulmonary contusion: Status: Acute Assessment and plan: Likely contributing to the hypoxia. As above. At increased risk for flail chest and pneumonia. Pain control per anesthesia. Encourage pulmonary toiletting. Continue doxycycline/ceftriaxone due to clinical worsening and purulent sputum appearance. Qualifiers: Encounter type: initial encounter Laterality: left Qualified Code(s): S27.321A - Contusion of lung, unilateral, initial encounter (9) Hematuria: Status: Acute Assessment and plan: Possible secondary to [place] trauma. Resolving. [place] is out. Holding on NSAIDs at this time. Qualifiers: Hematuria type: asymptomatic microscopic Qualified Code(s): R31.21 - Asymptomatic microscopic hematuria (10) Iron deficiency: Status: Acute Assessment and plan: Continue oral iron. (11) Hypertension: Status: Chronic Assessment and plan: Continue amlodipine and lisinopril. Prednisone may be driving the BP up. (12) Hyponatremia: Status: Chronic Assessment and plan: Stable off of fluid restriction. Actually, improved. Likely due to beer potomania, s/p combo of hypertonic saline and DDAVP. Continue to monitor. (13) Bronchiectasis: Status: Chronic Assessment and plan: With an acute excacerbation. As above - continue scheduled nebs, prn meds, prednisone. Wean O2 as tolerated. Continue doxycycline/ceftriaxone. Qualifiers: Bronchiectasis type: uncomplicated Qualified Code(s): J47.9 - Bronchiectasis, uncomplicated (14) Emphysema lung: Status: Acute Assessment and plan: Continue supplemental oxygen as needed to keep SPO2 over 88% and pulmonary toileting. CXR with Bilateral pulmonary infiltrates, nonspecific. Sputum is purulent today and pulmonary exam worse. Continue empiric doxycycline/ceftriaxone. Continue prednisone, scheduled/prn nebs, wean O2 as tolerated. Pulmonary toileting. Qualifiers: Emphysema type: centrilobular Qualified Code(s): J43.2 - Centrilobular emphysema (15) Anemia: Status: Chronic Assessment and plan: Continue iron supplementation. Qualifiers: Anemia type: iron deficiency Iron deficiency anemia type: unspecified iron deficiency Qualified Code(s): D50.9 - Iron deficiency anemia, unspecified (16) Hypocalcemia: Status: Ruled-out Assessment and plan: Calcium is normal when corrected for albumin. (17) DVT prophylaxis: Status: Acute Assessment and plan: SC lovenox (18) Discharge planning issues: Status: Acute Assessment and plan: Full code Continues to require hospitalization. Can move out of the ICU once off of ketamine gtt. Subjective Subjective Interval history since last seen: Mr La states he is feeling well this morning. He denies dizziness, chest pain, shortness of breath, nausea, pain in general. He is not coughing a lot. His sputum was yellow yesterday, and he was initiated on doxycycline/ceftriaxone. He remains on 4L of O2 per NC with O2 sat of 94% this am (he was not on room air last night, as the chart states - he spent the whole night on 4L). Exam Narrative Exam Narrative: General: Pleasant nontremulous male, sitting up in a chair on NC, A&Ox3, large L shoulder/back ecchymosis visible, unchanged, looks to be in good spirits HEENT: EOMI, MMM Heart: RRR, no m/r/g Lungs: Expiratory wheezing and mild rales, unchanged Abdomen: soft, nontender, nondistended Extremities: no edema BLEs, +1 pedal pulses B Objective Last Vital Signs Temp 36.5 C 02/25/22 04:15 Pulse 89 02/25/22 04:15 Resp 18 02/25/22 07:32 BP 137/66 02/25/22 04:15 Pulse Ox 89 L 02/25/22 04:15 Laboratory Results - last 24 hr 02/25/22 05:30 Sodium 136 Potassium 3.7 Chloride 101 Carbon Dioxide 26.6 Anion Gap 8.4 BUN 22 H Creatinine 0.8 Estimated GFR/1.73 m2 >= 60.00 Glucose 102 Calcium 8.9 Magnesium 1.9 PAWSS Have you Been Recently Intoxicated or Drunk Within the Last 30 days?: Yes Have you Ever Experienced Previous Episodes of Alcohol Withdrawal?: No Have you ever Experienced Withdrawal Seizures?: No Have you ever Experienced Delirium Tremens(DT)s?: No Have you ever undergone Alcohol Rehabilitation Treatment (i.e, inpt ot outpatient treatment programs)?: No Have you ever Experienced Blackouts?: No Have you ever Combined Alcohol with other Downers within the last 90 days?: No Have you ever Combined Alcohol with any other Substance of Abuse during the last 90 days?: No Positive Blood Alcohol level on Presentation? [PCS.BAL]: No Evidence of Increased Autonomic Activity (i.e. HR>120, tremor, sweating, agitation, nausea)?: No Result: 1
[2022-02-25] MEDS: amLODIPine 5 MG TAB PO (09:00)
[2022-02-25] MEDS: Ferrous Sulfate 325 MG TAB PO ×2 (09:01→21:10)
[2022-02-25] MEDS: Lisinopril 5 MG TAB PO (09:01)
[2022-02-25] MEDS: Gabapentin 100 MG CAP PO ×3 (09:01→21:11)
[2022-02-25] MEDS: Docusate Sodium 100 MG CAP PO ×2 (09:01→21:10)
[2022-02-25] MEDS: Lidocaine 5% Patch 1 PATCH TP (09:01)
[2022-02-25] MEDS: Enoxaparin 40 MG/0.4 ML SYR SC (09:01)
[2022-02-25] MEDS: Folic Acid 1 MG TAB PO (09:01)
[2022-02-25] MEDS: Polyethylene Glycol 3350 17 GM PACKET PO (09:02)
[2022-02-25] MEDS: Multivitamin TAB 1 TAB PO (09:02)
[2022-02-25] MEDS: Thiamine 100 MG TAB PO (09:02)
[2022-02-25] MEDS: Pantoprazole 40 MG TABCR PO (09:02)
[2022-02-25] MEDS: predniSONE 20 MG TAB 40 MG PO (09:02)
--- NOTE | 2022-02-25 09:44 | PDOC.ANES ---
Date of service: 02/24/22 Time of Service: 09:00 Anesthesia Note Report Anesthesia Note: Pt states he is comfortable with pain level of 0/10. VSS. No changes to ketamine gtt.
--- NOTE | 2022-02-25 09:47 | PDOC.ANES ---
Date of service: 02/25/22 Time of Service: 09:47 Anesthesia Note Report Anesthesia Note: Mr. La sitting up in chair. Denies any pain. Ketamine gtt remains unchanged.
[2022-02-25] MEDS: Normal Saline Flush 10 ML SYR IVP ×2 (13:35→23:34)
[2022-02-25] MEDS: cefTRIAXone 1 GM/50 ML BAG IVPB (13:36)
--- NOTE | 2022-02-25 13:59 | PT.INTREAT ---
Date of service: 02/25/22 Time of Service: 10:10 PT Notes Visit Reasons: Multitrauma Inpatient Physical Therapy Treatment Note [facility] Date: 02/25/2022 PRECAUTIONS: EOTH withdrawal and fall SUBJECTIVE: Stated he was good with going for a walk and exercising today. OBJECTIVE: PAIN: No complaints of pain offered BED MOBILITY/TRANSFERS Sit-stand: SBA Stand-sit: SBA GAIT Assistive Device: FWW Weight bearing: Full Assist: SBA of 2 (assist with IV pole, O2 tank with supplement @ 6L) Distance: 200ft VITALS: HR at 107 post ambulation, O2 at 77% post ambulation with increase to 91% post short seated rest THEREX: Performed AP, seated hip flexion, seated hip abd/add and LAQs for 10 reps each post ambulation ASSESSMENT: Tolerated ambulation and ther exercises well, with good effort displayed. Did indicate he was tired at conclusion of session. PLAN: Continue to focus on improved functional mobility for better ADL activity. TREATMENT CODE/TIME: 54914/ [id number], 10:10 to 10:35 (25')
[2022-02-25] MEDS: Furosemide 20 MG TAB PO (18:18)
[2022-02-25] MEDS: guaiFENesin 600 MG TABCR PO ×2 (18:18→21:10)
[2022-02-25] MEDS: Lidocaine Patch Removal 1 EACH TD (21:11)
[2022-02-25] MEDS: Bisacodyl 5 MG TABEC PO (21:42)
[2022-02-26] VITALS (47 sets, daily range): BP systolic 121–152; BP diastolic 70–110; PULSE 73–101; RESP 2–35; TEMP 36.6–37.7; O2SAT 80–98
[2022-02-26] MEDS: Acetaminophen 500 MG TAB 1000 MG PO ×3 (05:53→21:56)
[2022-02-26 06:05] LABS: Vitamin D 25 Total 24.9 ng/mL (30-100)
[2022-02-26] MEDS: Pantoprazole 40 MG TABCR PO (07:23)
[2022-02-26] MEDS: Enoxaparin 40 MG/0.4 ML SYR SC (07:23)
[2022-02-26] MEDS: Lidocaine 5% Patch 1 PATCH TP (07:23)
[2022-02-26] MEDS: Albuterol/Ipratropium 3 ML UPD VIAL UPD ×3 (08:05→20:40)
--- NOTE | 2022-02-26 08:26 | PGE_ITS ---
Date of Service Date of service: 02/26/22 Time of Service: 08:28 Assessment and Plan Assessment and plan (1) Acute respiratory failure with hypoxia: Status: Acute Assessment and plan: Multifactorial, suspect due to COPD exacerbation, Pneumonia, pulmonary contusions, atelectasis/pain of rib fractures, splinting, bronchiectasis, and CHF. Continue empiric doxycycline/ceftriaxone. Sputum is clear today, per patient. Sputum C&S is growing klebsiella, moraxella, and haemophilus, all of which should be covered by current abx. Await echo. Continue diuresis prn. Continue prednisone, scheduled and prn nebs. Encourage pulmonary toilet. Wean O2 as tolerated. COVID negative on admission. (2) Multiple rib fractures: Status: Acute Assessment and plan: Continue pain control (ketamine gtt is being weaned off today). Continue scheduled tylenol, prednisone, gabapentin, lidocaine patches. Encourage pulmonary toiletting. Status post nerve block left erector spinae. Qualifiers: Encounter type: initial encounter Fracture type: closed Laterality: left Qualified Code(s): S22.42XA - Multiple fractures of ribs, left side, initial encounter for closed fracture (3) Fall: Status: Acute Assessment and plan: Unwitnessed fall, ?syncope vs alcoholic blackout. Continue cardiac monitoring. Await echo (4) Alcohol intoxication: Status: Acute Assessment and plan: No evidence of EtOH w/d at this time. No longer on CIWA. Continue thiammine, MVI. He is on ketamine gtt. Qualifiers: Complication of substance-induced condition: uncomplicated Qualified Code(s): F10.920 - Alcohol use, unspecified with intoxication, uncomplicated (5) Lumbar vertebral fracture: Status: Acute Assessment and plan: As above. Has vitamin D deficiecy - will replete. PT. Qualifiers: Encounter type: initial encounter Lumbar vertebra fracture level: L4 Fracture type: closed Fracture morphology: other fracture Qualified Code(s): S32.048A - Other fracture of fourth lumbar vertebra, initial encounter for closed fracture (6) Blunt head trauma: Status: Acute Assessment and plan: CT head negative. Monitor for post-concussive symptoms. Qualifiers: Encounter type: initial encounter Qualified Code(s): S09.8XXA - Other specified injuries of head, initial encounter (7) Blunt trauma of multiple sites of trunk: Status: Acute Assessment and plan: Resulting in multiple rib fractures and ecchymosis, treated as above. (8) Pulmonary contusion: Status: Acute Assessment and plan: Likely contributing to the hypoxia. As above. At increased risk for flail chest, and does have pneumonia clinically (improving). Pain control per anesthesia. Encourage pulmonary toiletting. Continue doxycycline/ceftriaxone for clinical polymicrobial pneumonia. Qualifiers: Encounter type: initial encounter Laterality: left Qualified Code(s): S27.321A - Contusion of lung, unilateral, initial encounter (9) Hematuria: Status: Acute Assessment and plan: Possible secondary to Morocho trauma. Resolving. [place]o is out. Holding on NSAIDs at this time. Qualifiers: Hematuria type: asymptomatic microscopic Qualified Code(s): R31.21 - Asymptomatic microscopic hematuria (10) Iron deficiency: Status: Acute Assessment and plan: Continue oral iron. (11) Hypertension: Status: Chronic Assessment and plan: Continue amlodipine and lisinopril. Prednisone may be driving the BP up. (12) Hyponatremia: Status: Chronic Assessment and plan: Stable off of fluid restriction. Actually, improved. Likely due to beer potomania, s/p combo of hypertonic saline and DDAVP. Continue to monitor. (13) Bronchiectasis: Status: Chronic Assessment and plan: With an acute excacerbation. Bronchiectasis is a very focal finding, per Dr Moulton. As above - continue scheduled nebs, prn meds, prednisone. Wean O2 as tolerated. Continue doxycycline/ceftriaxone. Qualifiers: Bronchiectasis type: uncomplicated Qualified Code(s): J47.9 - Bronchiectasis, uncomplicated (14) Emphysema lung: Status: Acute Assessment and plan: Does have an acute exacerbation of COPD, which is getting better. Continue supplemental oxygen as needed to keep SPO2 over 88% and pulmonary toileting. CXR with Bilateral pulmonary infiltrates, and sputum is growing klebsiella, moraxella, and haemophilus. Continue doxycycline/ceftriaxone. Continue prednisone, scheduled/prn nebs, wean O2 as tolerated. Pulmonary toileting. Qualifiers: Emphysema type: centrilobular Qualified Code(s): J43.2 - Centrilobular emphysema (15) Anemia: Status: Chronic Assessment and plan: Continue iron supplementation. Qualifiers: Anemia type: iron deficiency Iron deficiency anemia type: unspecified iron deficiency Qualified Code(s): D50.9 - Iron deficiency anemia, unspecified (16) Hypocalcemia: Status: Ruled-out Assessment and plan: Calcium is normal when corrected for albumin. (17) DVT prophylaxis: Status: Acute Assessment and plan: SC lovenox (18) Discharge planning issues: Status: Acute Assessment and plan: Full code Continues to require hospitalization. Can move out of the ICU once off of ketamine gtt. Discussed with Dr Sanchez Subjective Subjective Interval history since last seen: Pain is well controlled. On RA saturating in low 80s overnight, now on 5L of O2. Feels well. Yesterday, was having R ear tinnitis, but this has resolved. Denies dizziness, chest pain, shortness of breath, nausea. Exam Narrative Exam Narrative: General: Pleasant nontremulous male, sitting up in a chair doing nebs, A&Ox3, large L shoulder/back ecchymosis stable, looks well HEENT: EOMI, MMM Heart: RRR, no m/r/g Lungs: Very minimal expiratory wheezing B, sounds much better than yesterday Abdomen: soft, nontender, nondistended Extremities: no edema BLEs, +1 pedal pulses B Objective Last Vital Signs Temp 36.7 C 02/25/22 23:56 Pulse 79 02/26/22 02:01 Resp 16 02/26/22 08:05 BP 147/76 H 02/26/22 02:01 Pulse Ox 89 L 02/26/22 08:05 Laboratory Results - last 24 hr 02/23/22 06:00 25-OH Vitamin D Total 24.9 L PAWSS Have you Been Recently Intoxicated or Drunk Within the Last 30 days?: Yes Have you Ever Experienced Previous Episodes of Alcohol Withdrawal?: No Have you ever Experienced Withdrawal Seizures?: No Have you ever Experienced Delirium Tremens(DT)s?: No Have you ever undergone Alcohol Rehabilitation Treatment (i.e, inpt ot outpatient treatment programs)?: No Have you ever Experienced Blackouts?: No Have you ever Combined Alcohol with other Downers within the last 90 days?: No Have you ever Combined Alcohol with any other Substance of Abuse during the last 90 days?: No Positive Blood Alcohol level on Presentation? [PCS.BAL]: No Evidence of Increased Autonomic Activity (i.e. 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
[2022-02-26] MEDS: Lisinopril 5 MG TAB PO (08:30)
[2022-02-26] MEDS: amLODIPine 5 MG TAB PO (08:34)
[2022-02-26] MEDS: Multivitamin TAB 1 TAB PO (08:35)
[2022-02-26] MEDS: Ferrous Sulfate 325 MG TAB PO ×2 (08:35→20:41)
[2022-02-26] MEDS: Gabapentin 100 MG CAP PO ×3 (08:35→20:41)
[2022-02-26] MEDS: predniSONE 20 MG TAB 40 MG PO (08:35)
[2022-02-26] MEDS: Thiamine 100 MG TAB PO (08:35)
[2022-02-26] MEDS: Normal Saline Flush 10 ML SYR IVP ×3 (08:36→20:42)
[2022-02-26] MEDS: Polyethylene Glycol 3350 17 GM PACKET PO (08:36)
[2022-02-26] MEDS: Folic Acid 1 MG TAB PO (08:36)
[2022-02-26] MEDS: guaiFENesin 600 MG TABCR PO ×2 (08:41→20:41)
[2022-02-26] MEDS: Docusate Sodium 100 MG CAP PO ×2 (08:41→20:41)
--- NOTE | 2022-02-26 08:51 | PUCC_ITS ---
General Date of Service Date of service: 02/26/22 Time of Service: 08:51 Reason for Admission to ICU: Multi-trauma Assessment and Plan Assessment and plan (1) Multiple rib fractures: Status: Acute Qualifiers: Encounter type: initial encounter Fracture type: closed Laterality: left Qualified Code(s): S22.42XA - Multiple fractures of ribs, left side, initial encounter for closed fracture (2) Lumbar vertebral fracture: Status: Acute Qualifiers: Encounter type: initial encounter Lumbar vertebra fracture level: L4 Fracture type: closed Fracture morphology: other fracture Qualified Code(s): S32.048A - Other fracture of fourth lumbar vertebra, initial encounter for closed fracture (3) Pulmonary contusion: Status: Acute Qualifiers: Encounter type: initial encounter Laterality: left Qualified Code(s): S27.321A - Contusion of lung, unilateral, initial encounter (4) Bronchiectasis: Status: Chronic Qualifiers: Bronchiectasis type: uncomplicated Qualified Code(s): J47.9 - Bronchiectasis, uncomplicated (5) Hypertension: Status: Chronic (6) Emphysema lung: Status: Acute Qualifiers: Emphysema type: centrilobular Qualified Code(s): J43.2 - Centrilobular emphysema (7) Hyponatremia: Status: Chronic (8) Anemia: Status: Chronic Qualifiers: Anemia type: iron deficiency Iron deficiency anemia type: unspecified iron deficiency Qualified Code(s): D50.9 - Iron deficiency anemia, unspecified (9) Hematuria: Status: Acute Qualifiers: Hematuria type: asymptomatic microscopic Qualified Code(s): R31.21 - Asymptomatic microscopic hematuria (10) Iron deficiency: Status: Acute (11) Hypocalcemia: Status: Ruled-out (12) Alcohol intoxication: Status: Acute Qualifiers: Complication of substance-induced condition: uncomplicated Qualified Code(s): F10.920 - Alcohol use, unspecified with intoxication, uncomplicated (13) Blunt trauma of multiple sites of trunk: Status: Acute (14) Blunt head trauma: Status: Acute Assessment and plan: This is a 71 yo man admitted to the ICU following a fall resulting in multiple location left sided #2-8 rib fractures, left clavicle fracture, L4-L5-S1 compression fracture and pulmonary contusions with hyponatremia. With regard to his trauma - he received 2 blocks and is on a low dose ketamine infusion. His tidal breathing is improving but will need continued IS and we will trial some Acapella care. He is a very high risk for developing pneumonia and with his worsening breath sounds and lack of improvement in his saturations he was started on therapy for a COPD exacerbation and possible pneumonia. His pain control is very good and I think we are able to decrease his ketamine dose today to 0.10. If he does well with this today then we can trial turning it off this afternoon. His hyponatremia has resovled and has been stable. In my opinion the most likely explanation for his hyponatremia based on his history, his osmalal ity and urine studies results, are beer potomania in addition do taking a thiazide diuretic. Qualifiers: Encounter type: initial encounter Qualified Code(s): S09.8XXA - Other specified injuries of head, initial encounter Recommendations Pulmonary: Pulmonary Contusion - Acapella - incentive spirometry - Duonebs tid - ambulation as tolerated - no need for further imaging unless clinical change Multi-level rib fractures - s/p nerve block - decrease ketamine to 0.10mg/kg/hr - if tolerates and does not develop alot of pain, ketamine can be discontinued around 2pm - can restart ketamine at 0.10mg/kg/hr later in day or overnight if he develops significant pain - already written for Tylenol, gabapentin - no need for further imaging unless clinical change Emphysema - Duoneb tid as above - on prednisone 40mg daily - would recommend 5-7 day course Hypoxic respiratory failure - pain control - IS and Acapella Cardiac: h/o hypertension - has been restarted on home BP meds - amlodipine and lisinopril - would discontinue HCTZ even on D/C given hyponatremia Renal: Hyponatremia, resolved - s/p 1L NS - s/p 50cc 3% saline one time - serum and urine osmalality & sodium consistent likely with beer potomania and thiazide use - TSH normal - random serum cortisol normal - fluid restriction to 1.5L - s/p 1 dose 2mcg DDAVP and 500cc total hypertonic saline Hypocalcemia - continue to monitor Hematuria - CT negative - continue to monitor - CPK normal I&O: Intake & Output 02/23/22 02/24/22 02/25/22 02/26/22 23:59 23:59 23:59 23:59 Intake Total 1170 / 1170 1190 / 1190 1460 / 1460 450 / 450 Output Total 1350 / 1350 2125 / 2125 1800 / 1800 1775 / 1775 Balance -180 / -180 -935 / -935 -340 / -340 -1325 / -1325 Weight 67 kg Daily Fluid Goal:: even to slightly negative GI Nutrition: Nutrition - regular diet with 1.5L fluid restriction Date of Last Bowel Movement: 02/19/22 Infectious Disease: Concern for pneumonia - continue ceftriaxone and doxycycline - multi-organism sputum culture Hematologic: Iron deficiency anemia - s/p one dose IV iron - now on PO iron Neurologic: Alcohol intoxication - no more CIWA - no withdrawal issues - s/p banana bag - continue PO MVI, thiamine and folate Fall resulting in multi-trauma - unknown circumstances - surgery has seen as assessed Endocrine: No acute concerns Lines: PICC Prophylaxis: Lovenox PPI Code Status: Resuscitation Status Full Code Subjective Critical and life-threatening events over the past 24 hours: Barry is doing well today. His pain was well controlled over the weekend and he is working with PT now. He is able to take decent breaths and is minimally limi keyona with his current pain regimen. He did develop wheezing over the weekend and so was started on prednisone, ceftriaxone and doxycycline for a suspected COPD exacerbation. Exam Narrative Exam Narrative: Gen: NAD, normal respiratory effort, well-nourished, bruising, abrasions and lac erations on face/arms HENT: PERRL, moist oral mucosa, Mallampati 2, No LAD or JVD Chest: No respiratory distress, normal appearance of chest - no flail chest currently. Improving tidal breathing. Scattered rhonchi, otherwise clear. Heart: regular rate and rhythym, no murmurs, rubs or gallops Abdomen: Non-distended, soft, non tender Extremities: No clubbing, edema, cyanosis, rashes Neuro: AAOx3 , non focal Psych: cooperative, appropriate mental affect Most Recent VS/Results Last Vital Signs Temp 36.7 C 02/25/22 23:56 Pulse 79 02/26/22 02:01 Resp 16 02/26/22 08:05 BP 147/76 H 02/26/22 02:01 Pulse Ox 89 L 02/26/22 08:05 Laboratory Results - last 24 hr 02/23/22 06:00 25-OH Vitamin D Total 24.9 L Review of Systems All systems reviewed & are unremarkable except as noted in HPI and below Time spent with patient Time spent in Critical Care: 35 Time spent in Critical care included: Chart review, Documenting critically ill care, Time at immediate bedside and Discussing critically ill care with other medical staff
--- NOTE | 2022-02-26 09:04 | PDOC.CMPRO ---
- If Service Date Differs Date of service: 02/26/22 Time of Service: 09:04 Care Management Progress Note S/O: Barry was sitting up in chair when CM met with him. He stated that he is feeling better today, and is not in pain. Per report, his ketamine drip will be weaned down today, and he will continue to be monitored in the ICU. CM discussed the concerns his family presented about his alcohol use, and he stated that he is agreeable to talk to a Board Design Engineer. CM contacted the track and field coach, and they will visit with him in person today. CM will continue to follow. A: Barry is a 71 year old male admitted to [facility] on 02/20/22 with multitrauma. P: Anticipate Barry will return home once medically cleared. He will likely transport via private vehicle by a friend or family. He will be evaluated to determine if further services are indicated at home. He will follow up with his PCP and discharge plan of care. CM will continue to follow.
[2022-02-26 09:25] LABS: Abs Immature Grans 0.11 10^3/uL (0.0-0.06); Absolute Basophil Count 0.01 10^3/uL (0.0-0.2); Absolute Eosinophil Count 0.02 10^3/uL (0.0-0.7); Absolute Lymphocyte Count 0.98 10^3/uL (1.2-3.4); Absolute Neutrophil Count 5.63 10^3/uL (1.2-6.7); Basophils % 0.1; Eosinophils % 0.3; HCT 42.2 % (40.0-50.0); HGB 14.5 g/dL (13.5-17.5); Immature Grans % 1.5; Lymphocytes % 13.3; MCH 33.4 pg (27.0-33.0); MCHC 34.4 % (32.0-36.0); MCV 97.2 fL (80-95); MPV 9.5 fL (8.0-11.0); Monocytes % 8.2; Neutrophils % 76.6; Platelet Count 159 10^3/uL (130-400); RBC 4.34 10^6/uL (4.36-5.78); RDW 12.9 % (11.8-14.1); RDW-SD 46.5 fL; WBC 7.35 10^3/uL (4.4-10.8)
[2022-02-26 09:32] LABS: Anion Gap 7.3 mmol/L (3-11); BUN 25 mg/dL (7-18); CO2 26.7 mmol/L (21.0-32.0); Calcium 8.7 mg/dL (8.5-10.1); Chloride 101 mmol/L (98-107); Glucose 163 mg/dL (74-106); Magnesium 1.7 mg/dL (1.8-2.4); Potassium 3.2 mmol/L (3.5-5.1); Sodium 135 mmol/L (136-145)
[2022-02-26] MEDS: Cholecalciferol (Vitamin D3) 1,000 UNIT TAB 2000 UNITS PO (09:42)
[2022-02-26] MEDS: cefTRIAXone 1 GM/50 ML BAG IVPB (10:50)
[2022-02-26] MEDS: DOXYCYCLINE 100 MG in Normal Saline 100 ML IVPB (11:38)
[2022-02-26] MEDS: traMADol 50 MG TAB PO (15:35)
--- NOTE | 2022-02-26 15:56 | PT.INTREAT ---
Date of service: 02/26/22 Time of Service: 10:55 PT Notes Visit Reasons: Multitrauma Inpatient Physical Therapy Treatment Note [facility] Date: 02/26/2022 PRECAUTIONS: Fall, Activity as tolerated, ETOH withdrawl SUBJECTIVE: Barry is pleasant and agreeable to participating in PT. He reports that he is not having any pain at this time. He states that he does not want to go to a SNF for continued rehab, he would like to return to home upon discharge. OBJECTIVE: ? PAIN: Patient reports that he has no pain ? BED MOBILITY/TRANSFERS? Supine-sit: I Sit-supine: I Sit-stand: S? Stand-sit: S? GAIT? Assistive Device: FWW? Weight bearing: Full Assist: S ? Distance:? 400' in a.m.; 200' in p.m. ? Deviation: None? THEREX: Patient was instructed in a brief LE strengthening program, completed in long sitting and seated positions, as per flow sheet. ASSESSMENT: Patient was able to tolerate a progression in gait distance without complaint. He continues to use FWW with gait training for support, per patient preference for increased stability. PLAN: Continue with global strengthening and general conditioning for improved mobility and activity tolerance. TREATMENT CODE/TIME: Session 1: 25 minutes; [id number] x2 (10:55) ? Session 2: 18 minutes; [id number] (13:21)
--- NOTE | 2022-02-26 16:12 | PDOC.ANES ---
Date of service: 02/26/22 Time of Service: 16:12 Anesthesia Note Report Anesthesia Note: Mr. La is on day 7 of the Ketamine drip due to trauma with multiple fractures. Goal was make him more comfortable, able to effectively use IS and take deeper breaths to avoid a pneumonia. Today his drip was reduced to 0.1mg/kg/hr. He continues to do well from a pain perspective with tolerable discomfort and has been calm maintaining an appropriate RASS.. He has not been very compliant with his IS, refusing this according to RN's. We will now stop his ketamine drip for the evening and see if he continues to do well from a pain perspective which I believe he will. If tonight goes well, then I think we can discontinue this ketamine infusion entirely. If not, we will reevaluate tomorrow.
[2022-02-26] MEDS: Lidocaine Patch Removal 1 EACH TD (20:41)
[2022-02-27] VITALS (26 sets, daily range): BP systolic 116–156; BP diastolic 70–90; PULSE 71–96; RESP 2–26; TEMP 36.1–37.3; O2SAT 2–98
[2022-02-27] MEDS: DOXYCYCLINE 100 MG in Normal Saline 100 ML IVPB ×2 (00:04→13:23)
[2022-02-27 06:35] LABS: Abs Immature Grans 0.22 10^3/uL (0.0-0.06); Absolute Basophil Count 0.02 10^3/uL (0.0-0.2); Absolute Eosinophil Count 0.03 10^3/uL (0.0-0.7); Absolute Lymphocyte Count 2.37 10^3/uL (1.2-3.4); Absolute Monocyte Count 0.98 10^3/uL (0.1-0.8); Absolute Neutrophil Count 6.88 10^3/uL (1.2-6.7); Basophils % 0.2; Eosinophils % 0.3; HCT 28.4 % (40.0-50.0); HGB 9.4 g/dL (13.5-17.5); Immature Grans % 2.1; Lymphocytes % 22.6; MCH 32.8 pg (27.0-33.0); MCHC 33.1 % (32.0-36.0); MPV 9.4 fL (8.0-11.0); Monocytes % 9.3; Neutrophils % 65.5; Platelet Count 233 10^3/uL (130-400); RBC 2.87 10^6/uL (4.36-5.78); RDW 13.2 % (11.8-14.1); RDW-SD 47.3 fL
[2022-02-27 06:42] LABS: Anion Gap 5.5 mmol/L (3-11); BUN 22 mg/dL (7-18); CO2 27.5 mmol/L (21.0-32.0); CREATININE 0.7 mg/dL (0.70-1.30); Calcium 8.6 mg/dL (8.5-10.1); Chloride 101 mmol/L (98-107); Glucose 81 mg/dL (74-106); Magnesium 1.8 mg/dL (1.8-2.4); Potassium 3.6 mmol/L (3.5-5.1); Sodium 134 mmol/L (136-145)
[2022-02-27] MEDS: Pantoprazole 40 MG TABCR PO (06:49)
[2022-02-27] MEDS: Acetaminophen 500 MG TAB 1000 MG PO ×3 (06:49→22:38)
--- NOTE | 2022-02-27 07:38 | W.PULMCC ---
General Date of Service Date of service: 02/27/22 Time of Service: 07:38 Assessment and Plan Assessment and plan (1) Multiple rib fractures: Status: Acute Qualifiers: Encounter type: initial encounter Fracture type: closed Laterality: left Qualified Code(s): S22.42XA - Multiple fractures of ribs, left side, initial encounter for closed fracture (2) Lumbar vertebral fracture: Status: Acute Qualifiers: Encounter type: initial encounter Lumbar vertebra fracture level: L4 Fracture type: closed Fracture morphology: other fracture Qualified Code(s): S32.048A - Other fracture of fourth lumbar vertebra, initial encounter for closed fracture (3) Pulmonary contusion: Status: Acute Qualifiers: Encounter type: initial encounter Laterality: left Qualified Code(s): S27.321A - Contusion of lung, unilateral, initial encounter (4) Bronchiectasis: Status: Chronic Qualifiers: Bronchiectasis type: uncomplicated Qualified Code(s): J47.9 - Bronchiectasis, uncomplicated (5) Hypertension: Status: Chronic (6) Emphysema lung: Status: Acute Qualifiers: Emphysema type: centrilobular Qualified Code(s): J43.2 - Centrilobular emphysema (7) Hyponatremia: Status: Chronic (8) Anemia: Status: Chronic Qualifiers: Anemia type: iron deficiency Iron deficiency anemia type: unspecified iron deficiency Qualified Code(s): D50.9 - Iron deficiency anemia, unspecified (9) Hematuria: Status: Acute Qualifiers: Hematuria type: asymptomatic microscopic Qualified Code(s): R31.21 - Asymptomatic microscopic hematuria (10) Iron deficiency: Status: Acute (11) Hypocalcemia: Status: Ruled-out (12) Alcohol intoxication: Status: Acute Qualifiers: Complication of substance-induced condition: uncomplicated Qualified Code(s): F10.920 - Alcohol use, unspecified with intoxication, uncomplicated (13) Blunt trauma of multiple sites of trunk: Status: Acute (14) Blunt head trauma: Status: Acute Assessment and plan: This is a 71 yo man admitted to the ICU following a fall resulting in multiple location left sided #2-8 rib fractures, left clavicle fracture, L4-L5-S1 compression fracture and pulmonary contusions with hyponatremia. With regard to his trauma - he received 2 blocks and is on a low dose ketamine infusion. His tidal breathing is improving but will need continued IS and we will trial some Acapella care. He is a very high risk for developing pneumonia and with his worsening breath sounds and lack of improvement in his saturations he was started on therapy for a COPD exacerbation and possible pneumonia. His pain control is very good even off of the ketamine infusion. There is no reason to restart it at this point. Since he has tolerated ketamine weaning and is doing well, he can be downgraded from ICU status to the wards safely. His hyponatremia has resovled and has been stable. In my opinion the most likely explanation for his hyponatremia based on his history, his osmalality and urine studies results, are beer potomania in addition do taking a thiazide diuretic. Qualifiers: Encounter type: initial encounter Qualified Code(s): S09.8XXA - Other specified injuries of head, initial encounter Recommendations Pulmonary: Pulmonary Contusion - Acapella - incentive spirometry - Duonebs tid - ambulation as tolerated - no need for further imaging unless clinical change Multi-level rib fractures - s/p nerve block - ketamine discontinued along with Ativan - already written for Tylenol, gabapentin - no need for further imaging unless clinical change Emphysema - Duoneb tid as above - on prednisone 40mg daily - would recommend 5-7 day course - can start Spiriva and discharge him on this as well as prn albuterol Hypoxic respiratory failure - pain control is adequate - IS and Acapella Cardiac: h/o hypertension - has been restarted on home BP meds - amlodipine and lisinopril - would discontinue HCTZ even on D/C given hyponatremia Renal: Hyponatremia, resolved - s/p 1L NS - s/p 50cc 3% saline one time - serum and urine osmalality & sodium consistent likely with beer potomania and thiazide use - TSH normal - random serum cortisol normal - fluid restriction to 1.5L - s/p 1 dose 2mcg DDAVP and 500cc total hypertonic saline Hypocalcemia - continue to monitor Hematuria - CT negative - continue to monitor - CPK normal I&O: Intake & Output 02/24/22 02/25/22 02/26/22 02/27/22 23:59 23:59 23:59 23:59 Intake Total 1190 / 1190 1460 / 1460 2087.474 / 2087.474 100 / 100 Output Total 2125 / 2125 1800 / 1800 2550 / 2550 800 / 800 Balance -935 / -935 -340 / -340 -462.526 / -462.526 -700 / -700 Weight 67 kg 65.5 kg 64.8 kg Daily Fluid Goal:: even GI Nutrition: Nutrition - regular diet with 1.5L fluid restriction Date of Last Bowel Movement: 02/19/22 Infectious Disease: Concern for pneumonia - continue ceftriaxone and doxycycline - multi-organism sputum culture Hematologic: Iron deficiency anemia - s/p one dose IV iron - now on PO iron Neurologic: Alcohol intoxication - no more CIWA - no withdrawal issues - s/p banana bag - continue PO MVI, thiamine and folate Fall resulting in multi-trauma - unknown circumstances - surgery has seen as assessed Endocrine: No acute concerns Lines: PICC Prophylaxis: Lovenox and PPI Code Status: Resuscitation Status Full Code Subjective Critical and life-threatening events over the past 24 hours: Barry is doing great and has been weaned off of ketamine since yesterday. His pain is still very well controlled. He is still working with PT and is still able to take sufficient breaths. Exam Narrative Exam Narrative: Gen: NAD, normal respiratory effort, well-nourished, bruising, abrasions and lacerations on face/arms HENT: PERRL, moist oral mucosa, Mallampati 2, No LAD or JVD Chest: No respiratory distress, normal appearance of chest - no flail chest currently. Improving tidal breathing. Scattered rhonchi, otherwise clear. Heart: regular rate and rhythym, no murmurs, rubs or gallops Abdomen: Non-distended, soft, non tender Extremities: No clubbing, edema, cyanosis, rashes Neuro: AAOx3 , non focal Psych: cooperative, appropriate mental affect Most Recent VS/Results Last Vital Signs Temp 36.8 C 02/27/22 04:00 Pulse 80 02/27/22 00:00 Resp 19 02/27/22 00:00 BP 140/81 02/27/22 00:00 Pulse Ox 95 02/27/22 00:15 Laboratory Results - last 24 hr 02/26/22 02/26/22 02/27/22 08:40 08:40 05:10 WBC 7.35 RBC 4.34 L Hgb 14.5 D Hct 42.2 D MCV 97.2 H MCH 33.4 H MCHC 34.4 RDW 12.9 Plt Count 159 MPV 9.5 Immature Gran % 1.5 Neutrophils % 76.6 Lymphocytes % 13.3 Monocytes % 8.2 Eosinophils % 0.3 Basophils % 0.1 Nucleated RBC % 0.0 Absolute Neutrophils 5.63 Absolute Lymphocytes 0.98 L Absolute Monocytes 0.60 Absolute Eosinophils 0.02 Absolute Basophils 0.01 Sodium 135 L 134 L Potassium 3.2 L 3.6 Chloride 101 101 Carbon Dioxide 26.7 27.5 Anion Gap 7.3 5.5 BUN 25 H 22 H Creatinine 1.0 0.7 Estimated GFR/1.73 m2 >= 60.00 >= 60.00 Glucose 163 H 81 D Calcium 8.7 8.6 Magnesium 1.7 L 1.8 02/27/22 05:10 WBC 10.50 D RBC 2.87 L Hgb 9.4 L D Hct 28.4 L D MCV 99.0 H MCH 32.8 MCHC 33.1 RDW 13.2 Plt Count 233 MPV 9.4 Immature Gran % 2.1 Neutrophils % 65.5 Lymphocytes % 22.6 Monocytes % 9.3 Eosinophils % 0.3 Basophils % 0.2 Nucleated RBC % 0.0 Absolute Neutrophils 6.88 H Absolute Lymphocytes 2.37 Absolute Monocytes 0.98 H Absolute Eosinophils 0.03 Absolute Basophils 0.02 Sodium Potassium Chloride Carbon Dioxide Anion Gap BUN Creatinine Estimated GFR/1.73 m2 Glucose Calcium Magnesium Review of Systems All systems reviewed & are unremarkable except as noted in HPI and below Time spent with patient Time spent in Critical Care: 35 Time spent in Critical care included: Coordination of care, Chart review, Documenting critically ill care, Time at immediate bedside and Discussing critically ill care with other medical staff
[2022-02-27] MEDS: Polyethylene Glycol 3350 17 GM PACKET PO (07:41)
[2022-02-27] MEDS: Multivitamin TAB 1 TAB PO (07:42)
[2022-02-27] MEDS: Cholecalciferol (Vitamin D3) 1,000 UNIT TAB 2000 UNITS PO (07:42)
[2022-02-27] MEDS: Gabapentin 100 MG CAP PO ×3 (07:42→19:08)
[2022-02-27] MEDS: Folic Acid 1 MG TAB PO (07:43)
[2022-02-27] MEDS: guaiFENesin 600 MG TABCR PO ×2 (07:43→19:09)
[2022-02-27] MEDS: Ferrous Sulfate 325 MG TAB PO ×2 (07:44→19:08)
[2022-02-27] MEDS: Lisinopril 5 MG TAB PO (07:44)
[2022-02-27] MEDS: predniSONE 20 MG TAB 40 MG PO (07:45)
[2022-02-27] MEDS: amLODIPine 5 MG TAB PO (07:45)
[2022-02-27] MEDS: Docusate Sodium 100 MG CAP PO ×2 (07:46→19:09)
[2022-02-27] MEDS: Thiamine 100 MG TAB PO (07:46)
[2022-02-27] MEDS: Normal Saline Flush 10 ML SYR IVP ×3 (07:47→15:24)
[2022-02-27] MEDS: Enoxaparin 40 MG/0.4 ML SYR SC (07:48)
[2022-02-27] MEDS: Lidocaine 5% Patch 1 PATCH TP (07:48)
[2022-02-27] MEDS: Albuterol/Ipratropium 3 ML UPD VIAL UPD ×3 (08:53→19:10)
--- NOTE | 2022-02-27 09:30 | PDOC.CMPRO ---
- If Service Date Differs Date of service: 02/27/22 Time of Service: 09:30 Care Management Progress Note S/O: Barry was sitting up in a chair when CM met with him. He was moved to /s today, as he continues to improve. He stated that his pain is still well controlled, without the ketamine drip. CM discussed his discharge plan, asking if he has been in contact with his roommate and family. He stated that he has been talking to them, and he plans to return home as soon as he is medically cleared. He stated that he is planning to not drink after this admission. His daughter, Leyda called, and Barry gave permission for CM to discuss his hospital course with her. Leyda expressed concern for his drinking, and is worried that he may drink again, despite him telling us that he plans to remain sober. Barry met with a [employer] Officer during this admission, and is agreeable to talking with her again, after he is discharged. CM will continue to follow. A: Barry is a 71 year old male admitted to [facility] on 02/20/22 with multitrauma. P: Anticipate Barry will return home once medically cleared. He will likely transport via private vehicle by a friend or family. He will be evaluated to determine if further services are indicated at home. He will follow up with his PCP and discharge plan of care. CM will continue to follow.
[2022-02-27] MEDS: cefTRIAXone 1 GM/50 ML BAG IVPB (10:43)
--- NOTE | 2022-02-27 15:04 | PT.INTREAT ---
Date of service: 02/27/22 Time of Service: 10:12 PT Notes Visit Reasons: Multitrauma Inpatient Physical Therapy Treatment Note [facility] Date: 02/27/2022 PRECAUTIONS: Fall, Activity as tolerated, ETOH withdrawl SUBJECTIVE: Barry is pleasant and agreeable to participating in PT. He reports that he is having left-sided flank pain, specifically with coughing. OBJECTIVE: ? PAIN: See subjective ? BED MOBILITY/TRANSFERS? Sit-stand: S? Stand-sit: S? GAIT? Assistive Device: No AD ? Weight bearing: Full Assist: CGA-SBA in a.m.; SBA in p.m. ? Distance:? 200' in a.m.; 150' in p.m. ? Deviation: Wide JANINE ? VITAL SIGNS: SaO2: 90-95% on 2L O2 via NC with gait training ASSESSMENT: Patient was able to tolerate gait training without assistive device support, requiring SBA for safety and demonstrating a wide JANINE. PLAN: Continue with global strengthening and general conditioning for improved mobility and activity tolerance. TREATMENT CODE/TIME: Session 1: 18 minutes; 14352 (10:12) ? Session 2: 9 minutes; [id number] (12:09)
--- NOTE | 2022-02-27 15:38 | W.PM.PROGNOT ---
Date of Service Date of service: 02/27/22 Time of Service: 15:39 Assessment and Plan Assessment and plan (1) Acute respiratory failure with hypoxia: Status: Acute Assessment and plan: Multifactorial, suspect due to COPD exacerbation, Pneumonia, pulmonary contusions, atelectasis/pain of rib fractures, splinting, bronchiectasis, and CHF. Continue empiric doxycycline/ceftriaxone. Sputum is clear today, per patient. Sputum C&S is growing klebsiella, moraxella, and haemophilus, all of which should be covered by current abx. Echocardiogram read is pending. Diuresing. Continue prednisone, scheduled and prn nebs. Encourage pulmonary toilet. Wean O2 as tolerated. Requiring less supplemental O2 today. COVID negative on admission. (2) Multiple rib fractures: Status: Acute Assessment and plan: Continue pain control: scheduled tylenol, prednisone, gabapentin, lidocaine patches. Off ketamine drip. Encourage pulmonary toiletting. Status post nerve block left erector spinae. Qualifiers: Encounter type: initial encounter Fracture type: closed Laterality: left Qualified Code(s): S22.42XA - Multiple fractures of ribs, left side, initial encounter for closed fracture (3) Fall: Status: Acute Assessment and plan: Unwitnessed fall, ?syncope vs alcoholic blackout. Continue cardiac monitoring. Await echo (4) Alcohol intoxication: Status: Acute Assessment and plan: No evidence of EtOH w/d at this time. No longer on CIWA. Continue thiammine, MVI. Qualifiers: Complication of substance-induced condition: uncomplicated Qualified Code(s): F10.920 - Alcohol use, unspecified with intoxication, uncomplicated (5) Lumbar vertebral fracture: Status: Acute Assessment and plan: As above. Has vitamin D deficiecy - repleting. PT. Qualifiers: Encounter type: initial encounter Lumbar vertebra fracture level: L4 Fracture type: closed Fracture morphology: other fracture Qualified Code(s): S32.048A - Other fracture of fourth lumbar vertebra, initial encounter for closed fracture (6) Blunt head trauma: Status: Acute Assessment and plan: CT head negative. Monitor for post-concussive symptoms. Qualifiers: Encounter type: initial encounter Qualified Code(s): S09.8XXA - Other specified injuries of head, initial encounter (7) Blunt trauma of multiple sites of trunk: Status: Acute Assessment and plan: Resulting in multiple rib fractures and ecchymosis, treated as above. (8) Pulmonary contusion: Status: Acute Assessment and plan: Likely contributing to the hypoxia. As above. At increased risk for flail chest, and does have pneumonia clinically (improving). Pain control per anesthesia. Encourage pulmonary toiletting. Continue doxycycline/ceftriaxone for clinical polymicrobial pneumonia. Qualifiers: Encounter type: initial encounter Laterality: left Qualified Code(s): S27.321A - Contusion of lung, unilateral, initial encounter (9) Hematuria: Status: Acute Assessment and plan: Possible secondary to Schrader trauma. Resolving. Schrader is out. Holding on NSAIDs at this time. Qualifiers: Hematuria type: asymptomatic microscopic Qualified Code(s): R31.21 - Asymptomatic microscopic hematuria (10) Iron deficiency: Status: Acute Assessment and plan: Continue oral iron. (11) Hypertension: Status: Chronic Assessment and plan: Continue amlodipine and lisinopril (at lower than home dose; 5m vs 20mg. Adjust as necessary). Adequate control. (12) Hyponatremia: Status: Chronic Assessment and plan: Stable off of fluid restriction. Now 134. Likely due to beer potomania, s/p combo of hypertonic saline and DDAVP. Continue to monitor. (13) Bronchiectasis: Status: Chronic Assessment and plan: With an acute excacerbation. Bronchiectasis is a very focal finding, per Dr Moulton. As above - continue scheduled nebs, prn meds, prednisone. Wean O2 as tolerated. Continue doxycycline/ceftriaxone. Qualifiers: Bronchiectasis type: uncomplicated Qualified Code(s): J47.9 - Bronchiectasis, uncomplicated (14) Emphysema lung: Status: Acute Assessment and plan: Does have an acute exacerbation of COPD, which is getting better. Continue supplemental oxygen as needed to keep SPO2 over 88% and pulmonary toileting. CXR with Bilateral pulmonary infiltrates, and sputum is growing klebsiella, moraxella, and haemophilus. Continue doxycycline/ceftriaxone. Continue prednisone, scheduled/prn nebs, wean O2 as tolerated. Pulmonary toileting. Qualifiers: Emphysema type: centrilobular Qualified Code(s): J43.2 - Centrilobular emphysema (15) Anemia: Status: Chronic Assessment and plan: Continue iron supplementation. Qualifiers: Anemia type: iron deficiency Iron deficiency anemia type: unspecified iron deficiency Qualified Code(s): D50.9 - Iron deficiency anemia, unspecified (16) Hypocalcemia: Status: Ruled-out Assessment and plan: Calcium is normal when corrected for albumin. (17) DVT prophylaxis: Status: Acute Assessment and plan: SC lovenox (18) Discharge planning issues: Status: Acute Assessment and plan: Full code Continues to require hospitalization. Moved to med-surg status Discussed with Dr Sanchez Subjective Subjective Patient reports: no new complaints, still having pain (left chest wall/ribs.), tolerating a regular diet and afebrile; denies nausea or vomiting Exam Narrative Exam Narrative: General: Pleasant nontremulous male, sitting up in a chair. HEENT: EOMI, MMM, sclera clear. Heart: RRR, no m/r/g Lungs: Soft coarseness to breath sounds. Nonlabored breathing. Abdomen: soft, nontender, nondistended Extremities: no edema BLEs, +1 pedal pulses B Psych: flat affect. A&O x 3 Skin: ecchymoses of left shoulder and upper back. Objective Last Vital Signs Temp 37.3 C 02/27/22 08:34 Pulse 92 H 02/27/22 08:54 Resp 16 02/27/22 13:56 BP 116/78 02/27/22 08:34 Pulse Ox 90 L 02/27/22 13:56 Laboratory Results - last 24 hr 02/27/22 02/27/22 05:10 05:10 WBC 10.50 D RBC 2.87 L Hgb 9.4 L D Hct 28.4 L D MCV 99.0 H MCH 32.8 MCHC 33.1 RDW 13.2 Plt Count 233 MPV 9.4 Immature Gran % 2.1 Neutrophils % 65.5 Lymphocytes % 22.6 Monocytes % 9.3 Eosinophils % 0.3 Basophils % 0.2 Nucleated RBC % 0.0 Absolute Neutrophils 6.88 H Absolute Lymphocytes 2.37 Absolute Monocytes 0.98 H Absolute Eosinophils 0.03 Absolute Basophils 0.02 Sodium 134 L Potassium 3.6 Chloride 101 Carbon Dioxide 27.5 Anion Gap 5.5 BUN 22 H Creatinine 0.7 Estimated GFR/1.73 m2 >= 60.00 Glucose 81 D Calcium 8.6 Magnesium 1.8 PAWSS Have you Been Recently Intoxicated or Drunk Within the Last 30 days?: Yes Have you Ever Experienced Previous Episodes of Alcohol Withdrawal?: No Have you ever Experienced Withdrawal Seizures?: No Have you ever Experienced Delirium Tremens(DT)s?: No Have you ever undergone Alcohol Rehabilitation Treatment (i.e, inpt ot outpatient treatment programs)?: No Have you ever Experienced Blackouts?: No Have you ever Combined Alcohol with other Downers within the last 90 days?: No Have you ever Combined Alcohol with any other Substance of Abuse during the last 90 days?: No Positive Blood Alcohol level on Presentation? [PCS.BAL]: No Evidence of Increased Autonomic Activity (i.e. HR>120, tremor, sweating, agitation, nausea)?: No Result: 1
[2022-02-27] MEDS: traMADol 50 MG TAB PO (18:48)
[2022-02-27] MEDS: Atorvastatin 40 MG TAB PO (19:09)
[2022-02-27] MEDS: Lidocaine Patch Removal 1 EACH TD (19:13)
[2022-02-28] VITALS (8 sets, daily range): BP systolic 134–159; BP diastolic 77–94; PULSE 72–97; RESP 7–21; TEMP 36.6–37; O2SAT 89–96
[2022-02-28] MEDS: DOXYCYCLINE 100 MG in Normal Saline 100 ML IVPB (00:03)
[2022-02-28] MEDS: Normal Saline Flush 10 ML SYR IVP ×3 (00:04→07:40)
[2022-02-28] MEDS: Acetaminophen 500 MG TAB 1000 MG PO (05:39)
[2022-02-28 06:32] LABS: Abs Immature Grans 0.34 10^3/uL (0.0-0.06); Absolute Basophil Count 0.01 10^3/uL (0.0-0.2); Absolute Eosinophil Count 0.05 10^3/uL (0.0-0.7); Absolute Lymphocyte Count 2.72 10^3/uL (1.2-3.4); Absolute Monocyte Count 0.91 10^3/uL (0.1-0.8); Absolute Neutrophil Count 5.08 10^3/uL (1.2-6.7); Basophils % 0.1; Eosinophils % 0.5; HGB 9.9 g/dL (13.5-17.5); Immature Grans % 3.7; Lymphocytes % 29.9; MCH 32.7 pg (27.0-33.0); MPV 9.4 fL (8.0-11.0); Neutrophils % 55.8; Platelet Count 260 10^3/uL (130-400); RBC 3.03 10^6/uL (4.36-5.78); RDW 13.1 % (11.8-14.1); WBC 9.11 10^3/uL (4.4-10.8)
[2022-02-28 06:54] LABS: Anion Gap 6.6 mmol/L (3-11); BUN 25 mg/dL (7-18); CO2 25.4 mmol/L (21.0-32.0); CREATININE 0.8 mg/dL (0.70-1.30); Calcium 8.9 mg/dL (8.5-10.1); Chloride 101 mmol/L (98-107); Glucose 94 mg/dL (74-106); Sodium 133 mmol/L (136-145)
[2022-02-28] MEDS: Enoxaparin 40 MG/0.4 ML SYR SC (07:37)
[2022-02-28] MEDS: Cholecalciferol (Vitamin D3) 1,000 UNIT TAB 2000 UNITS PO (07:38)
[2022-02-28] MEDS: Lidocaine 5% Patch 1 PATCH TP (07:38)
[2022-02-28] MEDS: Aspirin 81 MG CHEW PO (07:38)
[2022-02-28] MEDS: Polyethylene Glycol 3350 17 GM PACKET PO (07:38)
[2022-02-28] MEDS: Pantoprazole 40 MG TABCR PO (07:38)
[2022-02-28] MEDS: predniSONE 20 MG TAB 40 MG PO (07:38)
[2022-02-28] MEDS: amLODIPine 5 MG TAB PO (07:39)
[2022-02-28] MEDS: Ferrous Sulfate 325 MG TAB PO (07:39)
[2022-02-28] MEDS: Gabapentin 100 MG CAP PO (07:39)
[2022-02-28] MEDS: Multivitamin TAB 1 TAB PO (07:39)
[2022-02-28] MEDS: Lisinopril 5 MG TAB PO (07:39)
[2022-02-28] MEDS: Docusate Sodium 100 MG CAP PO (07:39)
[2022-02-28] MEDS: guaiFENesin 600 MG TABCR PO (07:39)
[2022-02-28] MEDS: Thiamine 100 MG TAB PO (07:39)
[2022-02-28] MEDS: Folic Acid 1 MG TAB PO (07:39)
[2022-02-28] MEDS: Albuterol/Ipratropium 3 ML UPD VIAL UPD ×2 (07:42→13:11)
[2022-02-28] MEDS: Tiotropium Bromide-Respimat 10 PUFF INH 2 PUFF IH (07:43)
--- NOTE | 2022-02-28 10:14 | NUR.NOTE ---
02/28/22 Chart review of Ketamine screen done for quality check by Tommy BRADY, ICU Clinical Educator. Nursing Note:
[2022-02-28] MEDS: cefTRIAXone 1 GM/50 ML BAG IVPB (10:34)
--- NOTE | 2022-02-28 11:12 | W.PM.DS.N ---
Date of service: 02/28/22 Time of Service: 11:13 DS: Diagnosis Discharge Diagnosis (1) Acute respiratory failure with hypoxia: Status: Acute (2) Multiple rib fractures: Status: Acute (3) Fall: Status: Acute (4) Alcohol intoxication: Status: Acute (5) Lumbar vertebral fracture: Status: Acute (6) Blunt head trauma: Status: Acute (7) Blunt trauma of multiple sites of trunk: Status: Acute (8) Pulmonary contusion: Status: Acute (9) Hematuria: Status: Acute (10) Iron deficiency: Status: Acute (11) Hypertension: Status: Chronic (12) Hyponatremia: Status: Chronic (13) Bronchiectasis: Status: Chronic (14) Emphysema lung: Status: Acute (15) Anemia: Status: Chronic (16) Hypocalcemia: Status: Ruled-out (17) DVT prophylaxis: Status: Acute (18) Discharge planning issues: Status: Acute Discharge Plan Disposition Patient Disposition: HOME W/HOME HEALTH SERVICE Condition: Stable Discharge Details Reason For Visit: Multitrauma Admit Date/Time: 02/20/22 01:28 Admit Provider: Kevin Phillips Attending Provider: Kevin Phillips Primary Care Provider: Tyrese Sprague Hospital Course Hospital Course: This is a 71 yo male with h/o HTN, [facility], last seen here [facility] -- found by roommate down, for an unknown period. Stated he had one beer though roommate stated he was drinking all day. Signs of multitrauma evident and patient brought to ER. In ER findings of note for forehead laceration, and multiple areas of ecchymosis. Labs of note for Hct 32, Na 119, EtOH 155, U/A 10-20 RBC; and imaging of note for left clavicular fracture, fractures of left ribs 2-8, some in multiple locations, L4 and L5 endplate fractures, negative left elbow. CT chest suggests possible small pulmonary contusion but no other acute pathology, and CT abdomen no acute process. Surgery was consulted and will see patient in AM for rib blocks. EKG unremarkable and trop negative. Patient reportrf left sided rib pain with deep inspiration (and declined pain meds). Denied SOB. Stated (again) that he drinks only one beer per day, and denies issues with withdrawal. Multimodal pain management initiated including initial utilization of a ketamine drip. Avoided narcotics but did later initiate Tramdol (only 2 doses utilized). Anesthesia also performed a nerve block for his rib fx pain. The hyponatremia was initially treated with 50ml of 3% saline, a fluid restriction of 1.5L. Na level improved as desired. No alcohol withdrawal observed. He recovered remarkably well with good pain control. He worked well with PT. His supplemental oxygen demands improved and on day of d/c he did not meet requirements to have home supplemental O2. Spiriva was initiated. Alcohol and tobacco avoidance recommended. nursing for medication monitoring ordered. Follow up with PCP in 1-2 weeks. Home Meds and New Rx's Prescriptions: New multivitamin [Multiple Vitamins] Tablet 1 tab PO DAILY Qty: 0 0RF polyethylene glycol 3350 17 gram Powder In Packet 17 g PO DAILY Qty: 0 0RF lidocaine 5 % Adhesive Patch,Medicated 1 patch topical Q24H Qty: 10 0RF guaifenesin [Mucinex] 600 mg Tablet Extended Release 12hr 600 mg PO BID Qty: 30 0RF tramadol 50 mg Tablet 50 mg PO Q6H PRN PRNQty: 30 0RF thiamine mononitrate (vit B1) [Vitamin B-1 (mononitrate)] 100 mg Tablet 100 mg PO DAILY Qty: 0 0RF Spiriva Respimat 2.5 mcg/actuation Mist 2 puff inhalation DAILY Qty: 1 0RF Continued aspirin 81 mg Tablet,Chewable 81 mg PO DAILY 0RF lisinopril 20 mg Tablet 20 mg PO DAILY 0RF amlodipine 10 mg Tablet 10 mg PO BID 0RF cholecalciferol (vitamin D3) 25 mcg (1,000 unit) Capsule 25 mcg PO DAILY 0RF atorvastatin 40 mg Tablet 40 mg PO HS 0RF oxcarbazepine 300 mg Tablet 300 mg PO BID 0RF folic acid 1 mg Tablet 1 mg PO DAILY 0RF fluticasone propionate 50 mcg/actuation [place],Suspension 1 spray INTRANASAL BID 0RF Rx Instructions: one spray to each nostril twice daily Discharge Instructions Instructions: Chronic Lung Disease and Infection Prevention (DC) Stand Alone Forms: Nursing Discharge Form Referrals: Tyrese Sprague [Primary Care Provider] - ([facility] will call to make an appointment in the next 2 weeks ) Activity:: Activity as Tolerated Equipment/Supplies:: No Equipment Needed Diet:: Resume usual diet Discharge Orders Discharge Orders: Discharge Order (Routine); Ordered 02/28/22 Ordered By: Polo Helm Discharge Data Discharge Date/Time-TO BE ENTERED AT DEPARTURE: 02/28/22 14:05 DS: Summary Time Spent with Patient providing and/or coordinating discharge services: Greater than 30 minutes Status at Discharge Functional status at discharge: independent ambulation Overall status at discharge: patient is progressing back to baseline Mental Status: mental status grossly normal Speech and Movement: speech and movement normal Mood: congruent mood Affect: normal affect Exam Narrative Exam Narrative: General: Pleasant nontremulous male, sitting up in a chair. HEENT: EOMI, MMM, sclera clear. Heart: RRR, no m/r/g Lungs: Soft coarseness to breath sounds. Nonlabored breathing. Abdomen: soft, nontender, nondistended Extremities: no edema BLEs, +1 pedal pulses B Psych: flat affect. A&O x 3 Skin: ecchymoses of left shoulder and upper back. Psych Mental Status: mental status grossly normal Speech and Movement: speech and movement normal Mood: congruent mood Affect: normal affect DS: Data Vitals/I&O Vitals and I&O: Vital Signs Temperature 36.7 C 02/28/22 07:08 Temperature Source Tympanic 02/28/22 07:08 Pulse 75 02/28/22 07:08 Pulse Rhythm Regular 02/28/22 07:30 Pulse 90 02/27/22 10:00 Respiratory Rate 18 02/28/22 07:08 Respiratory Effort Non-Labored 02/28/22 07:30 Respiratory Depth Normal 02/28/22 07:30 Respiratory Pattern Normal 02/28/22 07:30 Blood Pressure 157/94 H 02/28/22 07:08 Blood Pressure Mean 90 02/27/22 08:34 Blood Pressure Position Sitting 02/27/22 08:34 Pulse Oximetry 92 02/28/22 07:30 Oxygen Delivery Method Nasal Cannula 02/28/22 07:42 Oxygen Flow Rate 2 02/28/22 07:42 Pain Level 0 02/28/22 07:08 Comment 02/28/22 07:08 Intake & Output 02/27/22 02/27/22 02/28/22 11:59 23:59 11:59 Intake Total 500 / 1080 580 / 1080 480 / 480 Output Total 960 / 1560 600 / 1560 800 / 800 Balance -460 / -480 -20 / -480 -320 / -320 Weight 64.8 kg 64.3 kg Intake: IV 150 / 250 100 / 250 Oral 350 / 830 480 / 830 480 / 480 Output: Urine 960 / 1560 600 / 1560 800 / 800 Other: Urine Color Straw Yellow Yellow Urine Appearance Clear Clear Clear Urine Odor Strong Strong None Comment using urinal to void Stool Occult Blood Negative Stool Size Large Moderate Stool Characteristics Soft Soft Formed Voiding Methods Urinal Urinal Toilet Data Completed and Pending Labs on day of discharge: Labs from last 24 hours 02/28/22 02/28/22 05:47 05:47 WBC 9.11 RBC 3.03 L Hgb 9.9 L Hct 30.0 L MCV 99.0 H MCH 32.7 MCHC 33.0 RDW 13.1 Plt Count 260 MPV 9.4 Immature Gran % 3.7 Neutrophils % 55.8 Lymphocytes % 29.9 Monocytes % 10.0 Eosinophils % 0.5 Basophils % 0.1 Nucleated RBC % 0.0 Absolute Neutrophils 5.08 Absolute Lymphocytes 2.72 Absolute Monocytes 0.91 H Absolute Eosinophils 0.05 Absolute Basophils 0.01 Sodium 133 L Potassium 4.0 Chloride 101 Carbon Dioxide 25.4 Anion Gap 6.6 BUN 25 H Creatinine 0.8 Estimated GFR/1.73 m2 >= 60.00 Glucose [address] scan - chest: Lab and Radiology Reports: Laboratory Results WBC 9.11 10^3/uL (4.4-10.8) 02/28/22 05:47 RBC 3.03 10^6/uL (4.36-5.78) L 02/28/22 05:47 Hgb 9.9 g/dL (13.5-17.5) L 02/28/22 05:47 Hct 30.0 % (40.0-50.0) L 02/28/22 05:47 MCV 99.0 fL (80-95) H 02/28/22 05:47 MCH 32.7 pg (27.0-33.0) 02/28/22 05:47 MCHC 33.0 % (32.0-36.0) 02/28/22 05:47 RDW 13.1 % (11.8-14.1) 02/28/22 05:47 Plt Count 260 10^3/uL (130-400) 02/28/22 05:47 MPV 9.4 fL (8.0-11.0) 02/28/22 05:47 Reticulocyte % (Auto) 1.9 % (0.5-2.4) 02/20/22 06:00 Immature Gran % 3.7 02/28/22 05:47 Neutrophils % 55.8 02/28/22 05:47 Lymphocytes % 29.9 02/28/22 05:47 Monocytes % 10.0 02/28/22 05:47 Eosinophils % 0.5 02/28/22 05:47 Basophils % 0.1 02/28/22 05:47 Nucleated RBC % 0.0 % (0.0-0.3) 02/28/22 05:47 Absolute Neutrophils 5.08 10^3/uL (1.2-6.7) 02/28/22 05:47 Absolute Lymphocytes 2.72 10^3/uL (1.2-3.4) 02/28/22 05:47 Absolute Monocytes 0.91 10^3/uL (0.1-0.8) H 02/28/22 05:47 Absolute Eosinophils 0.05 10^3/uL (0.0-0.7) 02/28/22 05:47 Absolute Basophils 0.01 10^3/uL (0.0-0.2) 02/28/22 05:47 PT 9.6 sec (9.3-11.0) 02/19/22 21:55 INR 1.0 (0.9-1.1) 02/19/22 21:55 APTT 24.1 sec (21.0-27.5) 02/19/22 21:55 Sodium 133 mmol/L (136-145) L 02/28/22 05:47 Potassium 4.0 mmol/L (3.5-5.1) 02/28/22 05:47 Chloride 101 mmol/L (98-107) 02/28/22 05:47 Carbon Dioxide 25.4 mmol/L (21.0-32.0) 02/28/22 05:47 Anion Gap 6.6 mmol/L (3-11) 02/28/22 05:47 BUN 25 mg/dL (7-18) H 02/28/22 05:47 Creatinine 0.8 mg/dL (0.70-1.30) 02/28/22 05:47 Estimated GFR/1.73 m2 >= 60.00 (mL/min/1.73m2) 02/28/22 05:47 Glucose 94 mg/dL (74-106) 02/28/22 05:47 Serum Osmolality 256 mOsm/kg (275-295) L 02/20/22 11:00 Calcium 8.9 mg/dL (8.5-10.1) 02/28/22 05:47 Phosphorus 3.7 mg/dL (2.6-4.7) 02/20/22 11:00 Magnesium 1.8 mg/dL (1.8-2.4) 02/27/22 05:10 Iron 55 ug/dL (65-175) L 02/20/22 06:00 TIBC 219 ug/dL (250-450) L 02/20/22 06:00 Transferrin % Sat 25 % (20-55) 02/20/22 06:00 Total Bilirubin 0.5 mg/dL (0.2-1.0) 02/21/22 06:08 AST 28 U/L (15-37) 02/21/22 06:08 ALT 21 U/L (16-63) 02/21/22 06:08 Alkaline Phosphatase 97 U/L (46-116) 02/21/22 06:08 Creatine Kinase 195 U/L (39-308) 02/19/22 21:45 Troponin I < 50 ng/L (<or=60) 02/20/22 01:03 NT-Pro-B Natriuret Pep 2089 pg/mL (<300) H 02/22/22 05:00 Total Protein 5.8 g/dL (6.4-8.2) L 02/21/22 06:08 Albumin 2.5 g/dL (3.4-5.0) L 02/21/22 06:08 25-OH Vitamin D Total 24.9 ng/mL (30-100) L 02/23/22 06:00 Procalcitonin 0.3 ng/mL 02/22/22 05:00 TSH 3.73 uIU/mL (0.36-3.74) 02/19/22 21:45 Cortisol 28 mcg/dL (See Note) 02/20/22 11:00 Urine Color Yellow (Yellow) 02/20/22 06:05 Urine Clarity Cloudy (Clear) 02/20/22 06:05 Urine pH 5.5 (5-8) 02/20/22 06:05 Ur Specific [place] 1.025 (1.005-1.025) 02/20/22 06:05 Urine Protein >=300 mg/dL (Negative) H 02/20/22 06:05 Urine Ketones Trace mg/dL (Negative) H 02/20/22 06:05 Urine Blood Large (Negative) H 02/20/22 06:05 Urine Nitrite Negative (Negative) 02/20/22 06:05 Urine Bilirubin Negative (Negative) 02/20/22 06:05 Urine Urobilinogen 0.2 EU/dL (Up TO 0.2) 02/20/22 06:05 Ur Leukocyte Esterase Negative (Negative) 02/20/22 06:05 Urine RBC >50 HPF (0-2) H 02/20/22 06:05 Urine WBC HPF (0-5) 02/20/22 06:05 Ur Epithelial Cells HPF (Negative) 02/20/22 06:05 Urine Crystals Not Applicable 02/20/22 06:05 Urine Bacteria HPF (Negative) 02/20/22 06:05 Urine Casts 3-5 Hyaline LPF (Negative) 02/19/22 23:20 Urine Mucus Not Applicable 02/20/22 06:05 Ur Culture Indicated? Yes 02/20/22 06:05 Urine Osmolality 405 mOsm/kg (150-1,150) 02/20/22 06:05 Ur Random Sodium 38 mmol/L 02/20/22 06:05 Urine Glucose Negative mg/dL (Negative) 02/20/22 06:05 Urine Opiates Screen Negative (Negative) 02/19/22 23:20 Urine Methadone Screen Negative (Negative) 02/19/22 23:20 Ur Barbiturates Screen Negative (Negative) 02/19/22 23:20 Ur Tricyclics Screen Negative (Negative) 02/19/22 23:20 Ur Amphetamines Screen Negative (Negative) 02/19/22 23:20 U Benzodiazepines Scrn Negative (Negative) 02/19/22 23:20 Urine Cocaine Screen Negative (Negative) 02/19/22 23:20 Ur THC Screen Negative (Negative) 02/19/22 23:20 Ethyl Alcohol 155.8 mg/dL (<10) H 02/19/22 21:45 COVID-19 Source Nasal/Nares 02/19/22 22:52 SARS-CoV-2 (PCR) Negative (Negative) 02/19/22 22:52 Add-On Test Request DONE 02/22/22 05:00 Patient ABO/Rh A Positive 02/20/22 09:00 Antibody Screen NEGATIVE 02/20/22 09:00 PFSH All Active Problems Discharge planning issues (Acute) Acute respiratory failure with hypoxia (Acute) DVT prophylaxis (Acute) Hypertension (Chronic) Alcohol intoxication (Acute) Iron deficiency (Acute) Hematuria (Acute) Anemia (Chronic) Emphysema lung (Acute) Bronchiectasis (Chronic) Pulmonary contusion (Acute) Fall (Acute) Blunt trauma of multiple sites of trunk (Acute) Blunt head trauma (Acute) Hyponatremia (Chronic) Multiple rib fractures (Acute) Lumbar vertebral fracture (Acute) Social History Smoking/Tobacco Use Status: Current every day Smoking risk assessment performed?: Yes Alcohol Intake: current Alcohol Intake frequency: 0-2 drinks per day Alcohol type: beer Drug use: Never Details: Patient reports drinking a 25oz beer tonight.
[2022-02-28] MEDS: Bacitracin 1 PACKET (12:32)
--- NOTE | 2022-02-28 13:22 | CHAPLAIN ---
Barry was sitting up in a chair when I visited. He's been here just over a week, and he expects to be discharged today to his home [place]. I explained my role and offered support.
--- NOTE | 2022-02-28 13:59 | PT.INTREAT ---
Date of service: 02/28/22 Time of Service: 10:40 PT Notes Visit Reasons: Multitrauma Inpatient Physical Therapy Treatment Note [facility] Date: 02/28/2022 PRECAUTIONS: Fall, Activity as tolerated, ETOH withdrawl SUBJECTIVE: Barry is pleasant and agreeable to participating in PT. He reports that he is having left-sided flank pain, specifically with coughing. He reports that he is happy to be discharging to home today, and does not have any concerns or questions for physical therapy. OBJECTIVE: ? PAIN: See subjective ? BED MOBILITY/TRANSFERS? Sit-stand: I? Stand-sit: I? GAIT? Assistive Device: No AD ? Weight bearing: Full Assist: SBA ? Distance:? 200' x2? Deviation: Wide JANINE, no c/o pain, no SOB, on room air. ? VITAL SIGNS: Session completed in collaboration with RT. See their notes for specific vital sign details. ASSESSMENT: Patient was able to tolerate gait training without assistive device support, requiring SBA for safety and demonstrating a wide JANINE. PLAN: Patient to discharge to home later today, per provider. Recommend follow up with PT upon discharge to home. TREATMENT CODE/TIME: 15 minutes; 02052 (10:40)
--- NOTE | 2022-02-28 14:26 | PDOC.CMDIS ---
- If Service Date Differs Date of service: 02/28/22 Time of Service: 14:26 LACE Index Scoring Tool - Questions: Length of Stay (in days): 7 - 13 Acuity (Admit via E.D.?): Yes E.D. Visits: 1 - Answers: Total Score: 9 Risk of Readmission: Low Risk Care Management Discharge Reason for Hospitalization: multitrauma Discharge Plan: Barry will return home with new HH RN for med management. His son will drive him home via private vehicle. The disaster recovery manager will continue to follow him in the community. He will follow up with his PCP and discharge plan of care. He is happy to be going home. Patient/Family Education Needs: Review discharge instructions regarding activity levels and medications, discussion of self care needs including ask me three. Services Needed at Discharge: Home Health Care Services (HH RN)
--- NOTE | 2022-02-28 15:32 | PDOC.HHF2F_ITS ---
Home Health Certification Home Health Certification: 1. Encounter Date and Reason I certify that Barry La was seen by Polo Helm MD on 02/28/22 and that I had a [id number] encounter with this patient that meets the physician face to face encounter requirements. 2. Clinical Findings Supporting Skilled Need and Homebound Status I certify that home health services are medically necessary, include either intermittent residential and/or physical/speech therapy, and that this patient is homebound in that absences from the home require considerable and taxing effort and are infrequent or of short duration, or are attributable to the need to receive medical care. [X] (a) Attached documentation from encounter provides clinical findings supporting skilled need and homebound status (including what assistance patient requires to leave the home). The encounter with the patient was in whole, or in part, for the following medical condition, which is the primary reason for home health care: Multitrauma [place]: Medication monitoring. Pain management evaluation/monitoring. Physical Therapy: Speech Therapy: Homebound: 3. Certification and Authentication I certify that I composed the above information based on my clinical judgement relating to this patient's medical condition and, if applicable, clinical findings communicated to me by the NPP or inpatient physician who performed the Home Health Referral. All further orders will be obtained through ____Tyrese Sprague (C ommunity Based Physician - PCP)
--- NOTE | 2022-02-28 18:00 | INDS_ITS ---
Date of service: 02/28/22 PT Notes Visit Reasons: Multitrauma Physical Therapy Inpatient Discharge Summary Date: 02/28/2022 Dates of Service: 02/26/2022 through 02/28/2022 This is a clinical summary of care provided for the duration of dates listed above. No charge was made in the completion of this documentation. Referring Doctor: Juju Rodriguez MD PT Orders: PT CONSULT: Limited ability Precautions: Fall. Standard. Activity as tolerated. Patient Profile/Admitting Diagnosis:Ja Reddy is a 71-year-old male who presented to the ED on 02/20/2022 due to a fall that resulted to multiple rib fractures, lumbar vertebra fracture, and blunt head trauma.? Patient is diagnosed, EtOH intoxication, L4-L5 vertebral body left hip trauma, ribs 2?8 fractures,? bronchiectasis,? L5 compression fracture, pulmonary contusion, iron deficiency anemia, hypertension,? hyponatremia, emphysema of lung,? hypocalcemia. PMHX: All Active Problems? Fall (Acute) Blunt trauma of multiple sites of trunk (Acute) Blunt head trauma (Acute) Hyponatremia (Acute) Multiple rib fractures (Acute) Lumbar vertebral fracture (Acute) Social History/Home Situation: Lives with a roommate but roommate will be unable to provide help for him when he goes home.? Independent with all aspects of ADLs prior to admission. Equipment Owned/DME: None SUBJECTIVE: NT. See most recent [facility] notes. OBJECTIVE: General Observation: NT. See most recent [facility] notes. Mental Status: NT. See most recent [facility] notes. Pain: NT. See most recent [facility] notes. Vital Signs: NT. See most recent [facility] notes. ROM: Right Upper Extremity: ? Shoulder Flexion lacks the last 25% of AROM. Shoulder abduction WFL lacks the last 25% of AROM. Elbow flexion WFL. Wrist flexion WFL. Functional opening and closing of hand WFL. Left Upper Extremity:? Shoulder Flexion lacks the last 25% of AROM. Shoulder abduction WFL lacks the last 25% of AROM. Elbow flexion WFL. Wrist flexion WFL. Functional opening and closing of hand WFL. Right Lower Extremity: Hip flexion lacks the last 25% of AROM while seated at edge of bed. Hip abduction WFL. Knee flexion 20 degrees to 100 degrees. Knee extension -20 degrees.? Ankle dorsiflexion to neutral only.. Ankle plantarflexion WFL. Left Lower Extremity: Hip flexion lacks the last 25% of AROM while seated at edge of bed. Hip abduction WFL. Knee flexion 20 degrees to 100 degrees. Knee extension -20 degrees.? Ankle dorsiflexion to neutral only.. Ankle plantarflexion WFL. Strength: Right Upper Extremity: Shoulder flexors 3-/5. Shoulder abductors 3-/5. Elbow flexors 4-/5. Elbow extensors 4-/5. Educational Technologist strong. Left Upper Extremity: Shoulder flexors 3-/5. Shoulder abductors 3-/5. Elbow flexors 4-/5. Elbow extensors 4-/5. Educational Technologist strong. Right Lower Extremity: Hip flexors 3-/5. Hip abductors 3-/5. Knee flexors 3-/5. Knee extensors 3-/5. Ankle dorsiflexors 3-/5. Ankle plantarflexors 4-/5. Left Lower Extremity: Hip flexors 3-/5. Hip abductors 3-/5. Knee flexors 3-/5. Knee extensors 3-/5. Ankle dorsiflexors 3-/5. Ankle plantarflexors 4-/5. Bed Mobility/Transfers: Supine to sit independent Sit to supine independent Sit to stand independent Stand to sit independent Gait: Instructed patient with level surface ambulation of 200 feet x 2 requiring stand by assist. Michelle decreased. Step height decreased. Step length decreased.? Balance: Static Sitting: Good Dynamic Sitting: Fair Static Standing: Fair Dynamic Standing: Fair ASSESSMENT: Cognition intact, patient was able to follow instructions however responses were a bit slow.? Decline in transfers, ambulation, activity tolerance, and balance evident.? Patient presents with clinical signs and symptoms consistent with current/admitting diagnoses that have resulted to mobility limitations, gait instability, generalized weakness, and overall ADL decline as demonstrated by the following impairment level findings: 1.? Decreased strength to B UE/LE major muscle groups 2.? Impaired sitting/standing balance 3.? Impaired activity tolerance 4.? Limitation of joint range of motion in B shoulders 5.? Shortness of breath 6.? Fatigue Impairments are contributing to the following functional limitations: 1.? Decline in bed mobility skills 2.? Decline in transfer skills 3.? Difficulty with ambulation without assistive device and physical assistance 4.? Increased completion time for mobility ADL performance 5.? Increased risk for falls 6.? Difficulty with managing steps alone safely Goals: Goals X1 week 1. Supine-Sit independent MET 2. Sit-Supine independent MET 3. Sit-Stand independent MET 4. Stand-Sit independent with FWW MET 5. Bed-Chair independent with FWW MET 6. Chair-Bed independent with FWW MET 7. Independent gait on level surface with use of FWW for at least 300 feet without report of pain nor dyspnea NOT MET 8. Independent stair negotiation while holding onto B rails for at least 5 steps without report of pain nor dyspnea NOT MET 9. Independent with home exercise program NOT MET 10. Good static and dynamic standing balance/tolerance NOT MET DISCHARGE RECOMMENDATIONS: [] ? Home with no services [] [X] ? Home with services.? Home when medically cleared by hospitalist.? Patient will benefit from home health PT services in order to progress mobility level using least restrictive assistive ambulatory device, assess home safety, identify additional equipment needs, and establish a functional maintenance program that will increase ability of patient to remain at home. [] ? Home with outpatient PT [] [] ? SNF for continued rehabilitation [] [] ? [facility] [] [] ? SNF versus LTC based on ability to participate and progress [] TREATMENT CODE/TIME: [place] Thank you for the opportunity to participate in the care of this patient. Sylvia Julien PT, DPT, CLT [facility] [place], [place]
--- NOTE | 2022-03-08 12:48 | NUR.NOTE ---
Case review for Ketamine intervention/MAR on 03/08/22 Nursing Note:
== END 2022-02-28 14:05 | disposition home health service (06) | DRG 963 ==
LOC: ER 02-20 02:01 → ICU 02-20 02:02 → MS 02-27 12:13
PROVIDERS: Emergency Medicine; Family Medicine; Internal Medicine; Student in an Organized Health Care Education/Training Program; Admitting Provider General Practice; Emergency Provider Student in an Organized Health Care Education/Training Program; PCP Internal Medicine Geriatric Medicine; Visit Provider General Practice
DX: S22.42XA Multiple fractures of ribs, left side, initial encounter for closed fracture (principal); J96.01 Acute respiratory failure with hypoxia; S32.19XA Other fracture of sacrum, initial encounter for closed fracture; S27.321A Contusion of lung, unilateral, initial encounter; J18.9 Pneumonia, unspecified organism; S32.050A Wedge compression fracture of fifth lumbar vertebra, initial encounter for closed fracture; S32.048A Other fracture of fourth lumbar vertebra, initial encounter for closed fracture; E87.1 Hypo-osmolality and hyponatremia; J98.11 Atelectasis; S09.8XXA Other specified injuries of head, initial encounter; G89.11 Acute pain due to trauma; R07.81 Pleurodynia; S42.022A Displaced fracture of shaft of left clavicle, initial encounter for closed fracture; F10.129 Alcohol abuse with intoxication, unspecified; W19.XXXA Unspecified fall, initial encounter; S01.81XA Laceration without foreign body of other part of head, initial encounter; S61.512A Laceration without foreign body of left wrist, initial encounter; S51.012A Laceration without foreign body of left elbow, initial encounter; F17.210 Nicotine dependence, cigarettes, uncomplicated; I10 Essential (primary) hypertension; J43.2 Centrilobular emphysema; E83.51 Hypocalcemia; R31.21 Asymptomatic microscopic hematuria; Y90.6 Blood alcohol level of 120-199 mg/100 ml; J47.9 Bronchiectasis, uncomplicated; D50.9 Iron deficiency anemia, unspecified; S40.012A Contusion of left shoulder, initial encounter; S20.212A Contusion of left front wall of thorax, initial encounter
CPT/HCPCS: 36415; 36569; 36592; 51701; 71250; 76942; 80048; 80051; 80053; 80307; 82306; 82533; 82550; 83935; 84145; 85027; 86850; 86900; 86901; 87077; 87635; 90471; 93005; 94618; 94640; 96360; 96361; 97110; 97162; 97530; 99222; 99232; 99284; 99285; J1650; 70450; 71046; 72125; 72128; 72131; 73080; 74176; 80320; 81003; 81015; 83540; 83550; 83735; 83880; 83930; 84100; 84300; 84443; 84484; 85025; 85045; 85610; 85730; 87070; 87086; 87186; 87205; 93010; 93306; 99223; 99233; 99239; 99291; J0696; J1756; J1941; J2597; J3490; J7512; J7613; J7620